=== PATIENT | female | born 1935 | race Caucasian/White ===

== ENCOUNTER 2022-03-17 22:04 | Outpatient (CLI) | payer OTHER, SELFPAY ==
--- OUTSIDE RECORDS SUMMARY | 2022-04-03 07:11 | XMS_ITS | Clinical Summary ---
:1935 Author Organization [employer] [place] [address] Care Team Providers Name Role Phone Radha Castro MD Unavailable [phone] Carolina Clayton RN Unavailable Kadie Carey RN Unavailable Kiera Sheikh DO Primary Care Provider Nancy Nagy RN Unavailable Allergies Active Allergy Reactions Severity Noted Date Comments Codeine Nausea Only, Diaphoresis, 09/01/2007 Li ghtheadedness Dizziness Hydrocodone-Acetaminophe 02/12/2008 n Medications Medication Sig Dispensed Refills Start End Status Date Date cholecalciferol (VITAMIN Take 1 0 Active D-3) 2,000 unit capsule capsule by 5 mouth once daily. calcium carbonate Take 1 0 Ac tive (CALCIUM 600) 600 mg tablet by 5 (1,500 mg) tablet mouth 2 times daily with meals. multivitamin-minerals Daily 0 Active therapeutic (THERAGRAN-M) tablet amLODIPine (NORVASC) 5 Take 1 90 Tablet 3 Active mg tabletIndications: Tablet (5 2 Essential hypertension mg) by mouth once daily. lisinopril-hydrochloroth Take 1 90 Tablet 3 Active iazide (10-12.5 mg) Tablet by 2 tablet (PRINZIDE; mouth once ZESTORETIC)Indications: daily. Essential hypertension lovastatin (MEVACOR) 20 Take 1 90 tablet. 3 Active mg tabletIndications: Tablet (20 2 Pure mg) by hypercholesterolemia mouth once daily with evening meal. Wait until they call for this. potassium chloride Take 1 180 Tablet 3 Active (KLOR-CON M20) 20 mEq Tablet (20 2 Extended-Release mEq) by tabletIndications: mouth two Essential hypertension times daily with meals. donepeziL (ARICEPT) 10 Take 1 90 Tablet 3 Active mg tabletIndications: Tablet (10 2 Moderate dementia mg) by without behavioral mouth at disturbance bedtime. cyanocobalamin (Vitamin Take 1 90 Tablet 0 Active B-12) 1,000 mcg tablet tablet 2 every other day COVID-19 antigen test As 4 Kit 5 Active (COVID-19 At-Home Test) directed. 2 kitIndications: COVID-19 virus infection cyanocobalamin (Vitamin Take 1 90 Tablet 0 Discontinued B-12) 1,000 mcg tablet Tablet 2 022 (*Medication (1,000 mcg) adjustme nt) by mouth once daily. Hospital, Clinic, or Ordered Dose Route Frequency [...] R32 She receives these pads monthly from [facility]. Milton Vazquez MD signed electronically .................... 02/16/2020 [...] Encounters Date Type Specialty Care Team Description 03/29/2022 Office Visit Kiera Sheikh, [facility] F/U DO (/COV ID-19 positive when i n ER/[facility]//[place] [facility] Assisted Living - [facility] ) 03/29/2022 Travel 03/17/2022 Orders Only Scanner <No scans attac hed> 02/20/2022 Nurse/Clinic Staff Immunizat ion/Injection Only (Prolia Injecti onKiera DO ) 02/20/2022 Travel 02/20/2022 Telephone Kiera Sheikh, 02/04/2022 Telephone Kiera Sheikh, Prolia Co verage DO 01/30/2022 Office Visit Kiera Sheikh, Medicare ANNUAL DO (subsequent) Vi sit (Dementia has g christal worse/); Should er Pain/problem (l eft shoulder [...] 06/21/2020, 05/24/2020 100mcg/0.5mL) PF, MDV COVID-19 vaccine (JustGo 01/30/2022 30mcg/0.3mL) 12YO+ BIVALENT BOOSTER PF, MDV [...] coma and liver failure Heart Disease Father NH; of NH a t 73 Cancer Maternal Grandmother not [...] in contact with No / Unsu re 03/29/2022 7:24 AM GLASS ARTIST someone who was confirmed or suspected to have Coronavirus/COVID-19? Obstetrics History Last Filed Vital Signs Vital Sign Reading Time Taken Comments Blood Pressure 113/59 03/29/2022 1:55 PM GLASS ARTIST Pulse 68 03/29/2022 1:55 PM GLASS ARTIST Temperature 36.4 ??C (97.6 ??F) 05/28/2019 9:48 AM GLASS ARTIST Respiratory Rate 14 03/29/2022 1:55 PM GLASS ARTIST Oxygen Saturation 97% 03/29/2022 1:55 PM GLASS ARTIST Inhaled Oxygen Concentration - - Weight 52.6 kg (115 lb 14.4 oz) 03/29/2022 1:55 PM GLASS ARTIST Height 151.1 cm (4' 11.5) 01/30/2022 11:07 AM CDT Body Mass Index 23.02 01/30/2022 11:07 AM CDT Plan of Treatment Upcoming Encounters Date Type Specialty Care Team Description 07/31/2022 Office Visit Kiera Sheikh, DO [address] [place], [place] [address] (Wo rk) Health Maintenance Due Date Last Done Comments Zoster (shingles) series for age 0407/28/2007 06/02/2007 50+ (2 of 3) BMI (ht and wt on same day) for 01/30/2023 01/30/2022, 06/3 , age 18+ 05/28/2019, Additional history exists Depression [...] Name Priority Date/Time Associated Diagnosis Comme nts SCAN-RADIOLOGY REPORT 03/17/2022 12:00 Re sults for this AM GLASS ARTIST procedure are i n the results section. CBC WITH AUTO Routine 01/30/2022 12:36 [...] ults section. from Last 3 Months Results SCAN-RADIOLOGY REPORT (03/17/2022 12:00 AM GLASS ARTIST) Narrative This result has an attachment that is no t available. Scanner OTHER (ABNORMAL) CBC WITH AUTO DIFFERENTIAL (01/30/2022 12:36 PM CDT) [facility] gist Method Time Signature WHITE BLOOD 10.3 4.5 - 11.0 01/30/2022 [place] COUNT thou/cu mm 12:48 PM [facility] RED BLOOD COUNT 4.41 4.00 - 01/30/2022 [place] 5.20 12:48 PM [facility] mil/cu mm LABORATORY HEMOGLOBIN 14.1 12.0 - 01/30/2022 [place] 16.0 g/dL 12:48 PM [facility] HEMATOCRIT 42.4 33.0 - 01/30/2022 [place] 51.0 % 12:48 PM [facility] MCV 96 80 - 100 01/30/2022 [place] fL 12:48 PM [facility] MCH 32.0 26.0 - 01/30/2022 [place] 34.0 pg 12:48 PM [facility] MCHC 33.3 32.0 - 01/30/2022 [place] 36.0 g/dL 12:48 PM [facility] RDW 13.3 11.5 - 01/30/2022 [place] 15.5 % 12:48 PM [facility] PLATELET COUNT 230 140 - 440 01/30/2022 [place] thou/cu mm 12:48 PM [facility] MPV 10.0 6.5 - 11.0 01/30/2022 [place] fL 12:48 PM [facility] % NEUT 75.1 % 01/30/2022 [place] 12:48 PM [facility] % LYMPH 15.9 % 01/30/2022 [place] 12:48 PM [facility] % MONO 7.6 % 01/30/2022 [place] 12:48 PM [facility] % EOS 1.0 % 01/30/2022 [place] 12:48 PM [facility] % BASO 0.4 % 01/30/2022 [place] 12:48 PM [facility] ABSOLUTE 7.7 (H) 1.7 - 7.0 01/30/2022 [place] NEUTROPHILS thou/cu mm 12:48 PM [facility] ABSOLUTE 1.6 0.9 - 2.9 01/30/2022 [place] LYMPHOCYTES thou/cu mm 12:48 PM [facility] ABSOLUTE 0.8 <0.9 01/30/2022 [place] MONOCYTES thou/cu mm 12:48 PM [facility] ABSOLUTE 0.1 <0.5 01/30/2022 [place] EOSINOPHILS thou/cu mm 12:48 PM [facility] ABSOLUTE 0.0 <0.3 01/30/2022 [place] BASOPHILS thou/cu mm 12:48 PM [facility] Specimen Anatomical Collection Method / Collection Time Recei taina Time (Source) Location / Volume Laterality Blood BLOOD SPECIMEN / Venipuncture / 01/30/2022 12:36 01/30 Unknown Unknown PM CDT 12:39 PM CDT Kiera Sheikh DO HEMATOLOGY Performing Organization Address City/State/ZIP Code Phon e Number [facility] [address] [place] [address] (ABNORMAL) LIPID PANEL W REFLEX MEASURED LDL (01/30/2022 12:36 PM CDT) Patholo gist Method Time Signature CHOLESTEROL,TOTAL 154 100 - 199 01/30/2022 [place] mg/dL 1:02 PM [facility] TRIGLYCERIDES 154 (H) <150 01/30/2022 [place] mg/dL 1:02 PM [facility] HDL CHOLESTEROL 67 >40 mg/dL 01/30/2022 [place] 1:02 PM [facility] NON-HDL 87 <145 01/30/2022 [place] CHOLESTEROL mg/dl 1:02 PM [facility] CHOL/HDL RATIO 2.30 <4.50 01/30/2022 [place] 1:02 PM [facility] LDL CHOLESTEROL 56 <=130 01/30/2022 [place] mg/dL 1:02 PM [facility] VLDL CHOLESTEROL 31 (H) <=30 01/30/2022 [place] mg/dL 1:02 PM [facility] PROVIDER ORDERED RANDOM 01/30/2022 [place] STATUS 1:02 PM [facility] Specimen Anatomical Collection Method / Collection Time Recei taina Time (Source) Location / Volume Laterality Blood BLOOD SPECIMEN / Venipuncture / 01/30/2022 12:36 01/30 Unknown Unknown PM CDT 12:39 PM CDT Kiera Sheikh DO CHEMISTRY Performing Organization Address City/State/ZIP Code Phon e Number [facility] [address] [place] [address] (ABNORMAL) VITAMIN B12 (01/30/2022 12:36 PM CDT) P athologist Signature VITAMIN B12 1,355 (H) 180 - 914 01/31/2022 [employer] pg/mL 1:29 PM CDT LAB[facility]ATORY-[facility] Specimen Anatomical Collection Method / Collection Time Recei taina Time (Source) Location / Volume Laterality Blood BLOOD SPECIMEN / Venipuncture / 01/30/2022 12:36 01/30 Unknown Unknown PM CDT 12:39 PM CDT Keira Sheikh DO CHEMISTRY Performing Organization Address City/State/ZIP Code Phon e Number [facility] [address] [place], [place] [address] [address] LABORATORY-[facility] [address] LABORATORY (ABNORMAL) COMP METABOLIC PANEL (01/30/2022 12:36 PM T) [facility] Method Time Signature SODIUM 139 135 - 145 01/30/2022 [place] mmol/L 1:03 PM [facility] POTASSIUM 4.0 3.5 - 5.0 01/30/2022 [place] mmol/L 1:03 PM [facility] CHLORIDE 104 98 - 110 01/30/2022 [place] mmol/L 1:03 PM [facility] CO2,TOTAL 26 21 - 31 01/30/2022 [place] mmol/L 1:03 PM [facility] ANION GAP 9 5 - 18 01/30/2022 [place] 1:03 PM [facility] GLUCOSE 104 (H) 65 - 100 01/30/2022 [place] mg/dL 1:03 PM [facility] CALCIUM 10.1 8.5 - 10.5 01/30/2022 [place] mg/dL 1:03 PM [facility] BUN 16 8 - 25 01/30/2022 [place] mg/dL 1:03 PM [facility] CREATININE 0.79 0.57 - 01/30/2022 [place] 1.11 mg/dL 1:03 PM [facility] BUN/CREAT RATIO 20 10 - 20 01/30/2022 [place] 1:03 PM [facility] ALBUMIN 4.6 3.2 - 4.6 01/30/2022 [place] g/dL 1:03 PM [facility] PROTEIN,TOTAL 7.9 6.0 - 8.0 01/30/2022 [place] g/dL 1:03 PM [facility] GLOBULIN 3.3 2.0 - 3.7 01/30/2022 [place] g/dL 1:03 PM [facility] A/G RATIO 1.4 1.0 - 2.0 01/30/2022 [place] 1:03 PM [facility] BILIRUBIN,TOTAL 0.6 0.2 - 1.2 01/30/2022 [place] mg/dL 1:03 PM [facility] ALK PHOSPHATASE 69 50 - 136 01/30/2022 [place] IU/L 1:03 PM [facility] ALT (SGPT) 24 8 - 45 01/30/2022 [place] IU/L 1:03 PM [facility] AST (SGOT) 21 2 - 40 01/30/2022 [place] IU/L 1:03 PM [facility] eGFR 73 (L) >90 01/30/2022 [place] mL/min/1.7 1:03 PM [facility] 3m2 LABORATORY Comment: As of 2021, eGFR [...] Organization Address City/State/ZIP Code Phon e Number [facility] [address] [place] [address] from Last 3 Months Insurance Payer Benefit Plan / Subscriber ID Effective Dates Phone Addre ss Type Group MEDICARE PART B MEDICARE PART B [id number] 2001-Presen ATTN: CLAIMS - HB USE ONLY HB ONLY t [address] [place] [address] [facility] [id number] 2021-Present [address] [place] [address] [address] (Home) [address] [facility] [place] [id number] Advance Directives Documents on File Type Date Recorded Patient Gear 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 Registered Nurse 09/27/19 RN [facility], [address] [place], [place] [id number] Kadie Carey, bit tapper - [facility] Registered Nurse 09/27/[address] [place] [address] [address] [place], [place] [id number] Nancy Nagy, Actuarial Consultant - [facility] Registered Nurse 02/15/[address] [place] [address] [address] [place], [place] [phone]
== END 2022-03-17 22:05 | disposition home or self-care (01) ==
PROVIDERS: PCP Family Medicine; Visit Provider Internal Medicine
DX: R53.1 Weakness (principal)
CPT/HCPCS: A0425; A0427

== ENCOUNTER 2022-03-17 22:26 | Emergency (ER) | payer OTHER, SELFPAY ==
[2022-03-17] VITALS (8 sets, daily range): BP systolic 138–152; BP diastolic 57–88; PULSE 81–104; RESP 18; TEMP 36.7; O2SAT 91–99; BMI 24.2
--- NOTE | 2022-03-17 22:35 | ED_ITS ---
HPI - General Adult General Chief complaint: Weakness Stated complaint: Fall, weakness Time Seen by Provider: 03/17/22 22:30 History of Present Illness HPI narrative: Pt is a 87 year old woman who lives independently at the [facility] in [place]. While getting ready for bed tonight, she briefly lost her balance and tipped backwords landing on her buttocks. Pt did not hit her head. She had no LOC. She only has pain in her buttocks in the midline. She is not coplaining of weakness in any of her extremities which also have no pain. Pt states that she has been in her usual state of health. Pt was very scared and called for an ambulance which brought her to the ED. Pain is minimal in the buttocks midline. No radicular symptoms. Pt states she has had no similar symptoms in the past. She states that she currently receives no additional services in her apartment. Pain is mild. Related Data Home Medications Medication Instructions Recorded Confirmed amlodipine 5 mg tablet 5 mg PO DAILY 03/17/22 03/17/22 donepezil 10 mg tablet 10 mg PO HS 03/17/22 03/17/22 lisinopril 10 1 tab PO DAILY 03/17/22 03/17/22 mg-hydrochlorothiazide 12.5 mg tablet lovastatin 20 mg tablet 20 mg PO DAILY 03/17/22 03/17/22 potassium chloride 20 mEq 20 meq PO BID 03/17/22 03/17/22 tablet,extended release(part/cryst) Allergies Allergy/AdvReac Type Severity Reaction Status Date / Time codeine Allergy Mild Hives Verified 03/17/22 22:34 hydrocodone Allergy Mild Hives Verified 03/17/22 22:34 Review of Systems Status of ROS: Reports: 10 or more systems reviewed and unremarkable except as noted in History and below [facility] Medical History (Updated 03/17/22 @ 23:32 by Joaquim Garcia MD) Cerebral aneurysm Cognitive dysfunction Fusion of toes of left foot Hyperlipidemia Hypertension Hypokalemia Reflux esophagitis Spinal stenosis of lumbar region Spondylolisthesis of lumbar region Surgical History (Updated 03/17/22 @ 23:25 by Yang Fuentes RN) History of back surgery History of bilateral cataract extraction History of bunionectomy History of hysterectomy History of total abdominal hysterectomy and bilateral salpingo-oophorectomy Social History Smoking Status: Never smoker Second hand tobacco smoke exposure: No How often do you have a drink containing alcohol: never How often do you have six or more drinks on one occasion: Never AUDIT-C Alcohol total score: 0 Non-prescribed substance use: denies use Exam Narrative: Exam Narrative: EXAM GENERAL: Patient appears comfortable and well. EYES: No scleral icterus. ENT: Tympanic membranes and oropharynx normal. THYROID: no thyroid nodules or thyromegaly. LYMPH: No supraclavicular or cervical lymphadenopathy. SKIN: Visible skin seen during exam normal or with benign process only. EXT: No dependent lower extremity pedal edema. HEART: Regular rate and rhythm with no murmurs, rubs, or gallops. LUNGS: Clear to auscultation bilaterally with no crackles or wheezes. ABD: Soft, non tender, non distended. PSYCH: Good eye contact, speech is not pressured. Neurologic CN 11-XII intact. Pt ambulates without pain. Const: Vital Signs, click to edit/add: Vital Signs - 24 hr 03/17/22 22:30 03/17/22 22:47 03/17/22 23:00 Temperature 98.0 F Pulse Rate 85 93 Pulse Rate [Right Pulse Oximeter] 88 Respiratory Rate 18 Blood Pressure Blood Pressure [Ri ght Upper Arm] 152/88 H Pulse Oximetry 99 94 97 Oxygen Delivery Me thod Room Air 03/17/22 23:02 03/17/22 23:15 Temperature Pulse Rate 89 81 Pulse Rate [Right Pulse Oximeter] Respiratory Rate Blood Pressure 138/57 L Blood Pressure [Ri ght Upper Arm] Pulse Oximetry 95 93 Oxygen Delivery Me thod Course Course Hospital Course: Pt seen and examined. X ray of pelvis negative upon my review. Pt ambulates without pain. Vital Signs Vital signs: Initial Vital Signs Temperature 98.0 F 03/17/22 22:30 Temperature Source Temporal Artery Scan 03/17/22 22:30 Pulse Rate 88 03/17/22 22:30 Respiratory Rate 18 03/17/22 22:30 Blood Pressure 152/88 H 03/17/22 22:30 Blood Pressure Mean 109 03/17/22 22:30 Blood Pressure Position Sitting 03/17/22 22:30 Pulse Oximetry 99 03/17/22 22:30 Oxygen Delivery Method 03/17/22 22:30 Vital Signs Temperature 98.0 F 03/17/22 22:30 Pulse Rate 88 03/17/22 22:30 Respiratory Rate 18 03/17/22 22:30 Blood Pressure 152/88 H 03/17/22 22:30 Pulse Oximetry 99 03/17/22 22:30 Oxygen Delivery Method 03/17/22 22:30 Temperature 98.0 F 03/17/22 22:30 Pulse Rate 81 03/17/22 23:15 Respiratory Rate 18 03/17/22 22:30 Blood Pressure 138/57 L 03/17/22 23:02 Pulse Oximetry 93 03/17/22 23:15 Oxygen Delivery Method 03/17/22 22:30 Medical Decision Making MDM Narrative Medical decision making narrative: Pt is an 87 year old woman who stumbled backwards earlier tonight. She has only pain in her buttocks midline and no head or neck pain. Pt ambulates without difficulty or pain and her pelvic x rays upon my review show no abnormalities. Pt will be discharged back to the [facility] to continue her current care with PCP follow up. Differential Diagnosis Differential Diagnosis: Fall, Pelvic Fracture, Hip Fracture, Contusion, Sprain, Dislocation Lab Data Labs: Lab Results 03/17/22 Range/Units 23:05 SARS-CoV-2 (PCR) POSITIVE SARS-CoV-2 A (Negative) Influenza Type A (PCR) Negative PCR FLU A (Negative) Influenza Type B (PCR) Negative PCR FLU B (Negative) RSV (PCR) Negative PCR RSV (Negative) Discharge Plan Discharge Clinical Impression: Fall Condition: Stable Instructions: Fall Prevention for Older Adults (ED) Activity Level: Activity as Tolerated Discharge Diet: Regular Prescriptions: No Action amlodipine 5 mg tablet 5 mg PO DAILY Label Comments: TAKE 1 TABLET (5 MG) BY MOUTH ONCE DAILY. donepezil 10 mg tablet 10 mg PO HS Label Comments: TAKE 1 TABLET (10 MG) BY MOUTH AT BEDTIME. lisinopril-hydrochlorothiazide 10-12.5 mg tablet 1 tab PO DAILY Label Comments: TAKE 1 TABLET BY MOUTH ONCE DAILY. lovastatin 20 mg tablet 20 mg PO DAILY Label Comments: TAKE 1 TABLET (20 MG) BY MOUTH ONCE DAILY WITH EVENING MEAL. potassium chloride 20 mEq tablet,ER particles/crystals 20 meq PO BID Label Comments: TAKE 1 TABLET (20 MEQ) BY MOUTH TWO TIMES DAILY WITH MEALS. Follow Up/Referrals: Milton Vazquez MD [Primary Care Provider] - Stand Alone Forms: [employer] Info Instructions
--- NOTE | 2022-03-17 22:42 | CRLHL7_ITS ---
For Patients: As a result of the Cures Act, medical imaging exams and procedure reports are released immediately into your electronic medical record. You may view this report before your referring provider. If you have questions, please contact your health care provider. Indication: Trauma. Technique: AP view of the pelvis views. Comparison: None. Findings: Bones: Alignment is normal. No fractures or bone lesions. Joint spaces: Unremarkable. Soft tissues: Unremarkable. Impression: No sign of acute injury. Dictated by Elizabeth Yung MD @ 03/17/2022 11:38:09 PM (Electronically Signed)
--- NOTE | 2022-03-17 22:54 | ED.NURSE ---
MD requesting evaluation of pt while walking. Pt up and ambulatory without difficulty. Gallery [employer] Museum Technician at side of pt to assist, but pt ambulating independently. Pt back in bed and MD updated.
[2022-03-17 23:34] LABS: PCR FLU A Negative PCR FLU A (Negative); PCR FLU B Negative PCR FLU B (Negative); PCR RSV Negative PCR RSV (Negative); SARS PCR* POSITIVE SARS-CoV-2 (Negative)
--- OUTSIDE RECORDS SUMMARY | 2022-03-17 23:41 | XMS_ITS | Clinical Summary ---
:1935 Author Organization [employer] [facility] [place] [address] Care Team Providers Name Role Phone Radha Castro MD Unavailable [phone] Carolina Clayton RN Unavailable Kadie Carey RN Unavailable Kiera Sheikh DO Primary Care Provider Nancy Nagy RN Unavailable Allergies Active Allergy Reactions Severity Noted Date Comments Codeine Nausea Only, Diaphoresis, 09/01/2007 Li ghtheadedness Dizziness Hydrocodone-Acetaminophe 02/12/2008 n Medications Medication Sig Dispensed Refills Start Date End Date Status cholecalciferol (VITAMIN Take 1 0 12/19/2014 Active D-3) 2,000 unit capsule capsule by mouth once daily. calcium carbonate (CALCIUM Take 1 tablet 0 5 Active 600) 600 mg (1,500 mg) by mouth 2 tablet times daily with meals. multivitamin-minerals Daily 0 Active therapeutic (THERAGRAN-M) tablet amLODIPine (NORVASC) 5 mg Take 1 Tablet 90 Tablet 3 01/30/2022 Active tabletIndications: (5 mg) by Essential hypertension mouth once daily. lisinopril-hydrochlorothia Take 1 Tablet 90 Tablet 3 2 Active zide (10-12.5 mg) tablet by mouth once (PRINZIDE; daily. ZESTORETIC)Indications: Essential hypertension lovastatin (MEVACOR) 20 mg Take 1 Tablet 90 tablet. 3 01/31/20 22 Active tabletIndications: Pure (20 mg) by hypercholesterolemia mouth once daily with evening meal. Wait until they call for this. potassium chloride Take 1 Tablet 180 Tablet 3 01/30/2022 Active (KLOR-CON M20) 20 mEq (20 mEq) by Extended-Release mouth two tabletIndications: times daily Essential hypertension with meals. donepeziL (ARICEPT) 10 mg Take 1 Tablet 90 Tablet 3 01/30/2022 Active tabletIndications: (10 mg) by Moderate dementia without mouth at behavioral disturbance bedtime. Hospital, Clinic, or Ordered Dose Route Frequency Start Date End D ate Status Other Facility Administered Medication denosumab (PROLIA) 60 mg SubQ Q 6 MONTHS (02/20/202207/08 Active injection 60 WEEKS) mgIndications: Post-menopausal osteoporosis denosumab (PROLIA) 60 mg SubQ Q 6 MONTHS (02/20/202207/08 Active injection 60 WEEKS) mgIndications: Post-menopausal osteoporosis Active Problems Problem Noted Date Cerebral aneurysm 01/30/2022 Moderate dementia without behavioral disturbance 08/05 Urinary incontinence 02/16/2020 Overview: Code R32 She receives these pads monthly from [facility]. Milton Vazquez MD signed electronically .................... 02/16/2020 Post-menopausal osteoporosis 12/24/2018 Overview: She completed 5 years of Fosamax in 2016 . As of 12/24/2018 her most recent bone den sity showed her to be at risk for fracture and drug therapy was recommended. She has chosen to go with [facility] for 3 years followed by a 3 year drug holiday. 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 10/08/2017 Lump of Left Forehead 03/06/2015 Overview: 09/2013 10 mm 04/2014 7 mm 02/2015 7 mm Reflux esophagitis 06/23/2013 Overview: EGD 06/2016 normal, biopsy negative for c eliac disease, patient can try gluten- free diet to see if this helps her abdominal pain Abdominal pain, epigastric 06/09/2013 Overview: EGD 05/2013 reflux Unspecified essential hypertension 01/14/2007 Pure hypercholesterolemia 01/14/2007 Encounters Date Type Specialty Care Team Description 02/20/2022 Nurse/Clinic Staff Immunizat ion/Injection Only (Prolia Injecti on, Kiera Sheikh, DO ) 02/20/2022 Travel 02/20/2022 Telephone Kiera Sheikh, DO 02/04/2022 Telephone Kiera Sheikh, Prolia Co verage DO 01/30/2022 Office Visit Kiera Sheikh, Medicare ANNUAL DO (subsequent) Vi sit (Dementia has sergio siegel worse/); Should er Pain/problem (l eft shoulder hurts to move it or touch it) ; Immunization/In jection (COVID-19 vacci ne /Flue Vaccine) 01/30/2022 Travel from Last 3 Months Immunizations Name Administration Dates Next Due AMB INFLUENZA IIV3 (AGE 65+ YRS) PF 01/29/2017 (Flu Clinic Only) AMB Influenza, IIV3 (Age >=3 03/12/2013 years)(Flu Clinic Only) COVID-19 vaccine (Moderna 06/21/2020, 05/24/2020 100mcg/0.5mL) PF, MDV COVID-19 vaccine ([employer] 01/30/2022 30mcg/0.3mL) 12YO+ BIVALENT BOOSTER PF, MDV Influenza, High-dose Inactivated 02/19/2019, 01/24/2016, , 02/04/2014 Influenza, IIV3 (Age >=3 years) 02/15/2012, 01/09/2009, 01/27 Influenza, IIV4 01/29/2017 Influenza, Inactivated AIIV4 (Age 65+ 01/30/2022, 02/01/2021 Years) Preserv Free Influenza, Inactivated IIV3 (Age 65+ 02/11/2018 Years) Preserv Free Pneumococcal Poly,23-Valent 02/17/2012 (Pneumovax) Pneumococcal conj 13-Valent (Prevnar 05/17/2015 13) Td, Preservative Free (age >= 7 11/29/2010 Years) Tdap 10/28/2013 Zoster (Zostavax-ZVL, live) 06/02/2007 Family History Medical History Relation Name Comments Heart Disease Brother bypass surgery Heart attack Daughter 1 Rhythm problems post heart attack Psychiatric illness Daughter 1 bi polar Seizures Daughter 2 at 48 of sz and coma and liver failure Heart Disease Father RI; of RI a t 73 Cancer Maternal Grandmother not a smoke r Arthritis Mother ? rheumatoid Dementia Mother of old age at 86 Heart Disease Mother CHF Cancer-breast Sister Heart Disease Sister bypass surgery Hyperlipidemia Sister Hypertension Sister Cancer-colon No Family History Relation Name Status Comments Brother Daughter 1 Daughter 2 Father Maternal Grandmother Mother Sister Social History Tobacco Use Types Packs/Day Years Used Date Never Smoker Smokeless Tobacco: Never Used Tobacco Cessation: Counseling Given: Yes Alcohol Use Standard Drinks/Week Comments No 0 (1 standard drink = 0.6 oz pure alcoho l) Sex Assigned at Date Recorded Not on file COVID-19 Exposure Response Date Recorded In the last 10 days, have you been in contact with No / Unsu re 02/20/2022 1:24 PM CDT someone who was confirmed or suspected to have Coronavirus/COVID-19? Obstetrics History Last Filed Vital Signs Vital Sign Reading Time Taken Comments Blood Pressure 124/58 01/30/2022 11:07 AM CDT Pulse 60 01/30/2022 11:07 AM CDT Temperature 36.4 ??C (97.6 ??F) 05/28/2019 9:48 AM MANAGER RESPIRATORY CARE Respiratory Rate 16 01/30/2022 11:07 AM CDT Oxygen Saturation 96% 08/01/2021 10:52 AM CDT Inhaled Oxygen Concentration - - Weight 54.4 kg (120 lb) 01/30/2022 11:07 AM CDT Height 151.1 cm (4' 11.5) 01/30/2022 11:07 AM CDT Body Mass Index 23.83 01/30/2022 11:07 AM CDT Plan of Treatment Health Maintenance Due Date Last Done Comments Zoster (shingles) series for age 0407/28/2007 06/02/2007 50+ (2 of 3) BMI (ht and wt on same day) for 01/30/2023 01/30/2022, 06/, age 18+ 05/28/2019, Additional history exists Depression screening for age 12+ 01/30/2023 01/30/2022, 08/2020, 01/26/2021, Additional history exists Medicare Wellness for age 65+ 01/30/2023 01/30/2022, 2018, 11/14/2017, Additional history exists Tetanus booster 10/29/2023 10/28/2013, 11/29/2010, 11/29/2010 Tdap Completed 10/28/2013 Pneumococcal series for age 65+ Completed 05/17/2015, 01/27 DEXA/DXA scan for age 65+ Completed 12/07/2018, 05/27/2014 COVID-19 vaccine series Completed 01/30/2022, 03/29/2021, 06/21/2020, Additional history exists Influenza for age 65+ Completed 01/30/2022, 02/01/2021, 02/19/2019, Additional history exists Procedures Procedure Name Priority Date/Time Associated Diagnosis Comme nts CBC WITH AUTO Routine 01/30/2022 12:36 Essential Results fo r this DIFFERENTIAL PM CDT hypertension procedure are in HYPERCHOLESTEROLEMIA the res ults section. VITAMIN B12 Routine 01/30/2022 12:36 Moderate dementia Result s for this PM CDT without behavioral procedure are in disturbance the results section. LIPID PANEL W REFLEX Routine 01/30/2022 12:36 Essential Res ults for this MEASURED LDL PM CDT hypertension procedure are in HYPERCHOLESTEROLEMIA the res ults section. COMP METABOLIC PANEL Routine 01/30/2022 12:36 Essential Res ults for this PM CDT hypertension procedure are in HYPERCHOLESTEROLEMIA the res ults section. CBC WITH AUTO Routine 01/30/2022 12:36 Essential Results fo r this DIFFERENTIAL PM CDT hypertension procedure are in HYPERCHOLESTEROLEMIA the res ults section. from Last 3 Months Results (ABNORMAL) CBC WITH AUTO DIFFERENTIAL (01/30/2022 12:36 PM CDT) [facility] Method Time Signature WHITE BLOOD 10.3 4.5 - 11.0 01/30/2022 [place] COUNT thou/cu mm 12:48 PM [facility] RED BLOOD COUNT 4.41 4.00 - 01/30/2022 [place] 5.20 12:48 PM [facility] mil/cu mm LABORATORY HEMOGLOBIN 14.1 12.0 - 01/30/2022 [place] 16.0 g/dL 12:48 PM [facility] HEMATOCRIT 42.4 33.0 - 01/30/2022 [place] 51.0 % 12:48 PM [facility] MCV 96 80 - 100 01/30/2022 [place] fL 12:48 PM [facility] MCH 32.0 26.0 - 01/30/2022 [place] 34.0 pg 12:48 PM [facility] MCHC 33.3 32.0 - 01/30/2022 [place] 36.0 g/dL 12:48 PM [facility] RDW 13.3 11.5 - 01/30/2022 [place] 15.5 % 12:48 PM [facility] PLATELET COUNT 230 140 - 440 01/30/2022 [place] thou/cu mm 12:48 PM [facility] MPV 10.0 6.5 - 11.0 01/30/2022 [place] fL 12:48 PM [facility] % NEUT 75.1 % 01/30/2022 [place] 12:48 PM [facility] % LYMPH 15.9 % 01/30/2022 [place] 12:48 PM [facility] % MONO 7.6 % 01/30/2022 [place] 12:48 PM [facility] % EOS 1.0 % 01/30/2022 [place] 12:48 PM [facility] % BASO 0.4 % 01/30/2022 [place] 12:48 PM [facility] ABSOLUTE 7.7 (H) 1.7 - 7.0 01/30/2022 [place] NEUTROPHILS thou/cu mm 12:48 PM [facility] ABSOLUTE 1.6 0.9 - 2.9 01/30/2022 [place] LYMPHOCYTES thou/cu mm 12:48 PM [facility] ABSOLUTE 0.8 <0.9 01/30/2022 [place] MONOCYTES thou/cu mm 12:48 PM [facility] ABSOLUTE 0.1 <0.5 01/30/2022 [place] EOSINOPHILS thou/cu mm 12:48 PM [facility] ABSOLUTE 0.0 <0.3 01/30/2022 [place] BASOPHILS thou/cu mm 12:48 PM [facility] Specimen Anatomical Collection Method / Collection Time Recei taina Time (Source) Location / Volume Laterality Blood BLOOD SPECIMEN / Venipuncture / 01/30/2022 12:36 01/30 Unknown Unknown PM CDT 12:39 PM CDT Kiera Sheikh DO HEMATOLOGY Performing Organization Address City/State/ZIP Code Phon e Number [facility] [address] [place] [address] (ABNORMAL) LIPID PANEL W REFLEX MEASURED LDL (01/30/2022 12:36 PM CDT) [facility] Method Time Signature CHOLESTEROL,TOTAL 154 100 - 199 01/30/2022 [place] mg/dL 1:02 PM [facility] TRIGLYCERIDES 154 (H) <150 01/30/2022 [place] mg/dL 1:02 PM [facility] HDL CHOLESTEROL 67 >40 mg/dL 01/30/2022 [place] 1:02 PM [facility] NON-HDL 87 <145 01/30/2022 [place] CHOLESTEROL mg/dl 1:02 PM [facility] CHOL/HDL RATIO 2.30 <4.50 01/30/2022 [place] 1:02 PM [facility] LDL CHOLESTEROL 56 <=130 01/30/2022 [place] mg/dL 1:02 PM [facility] VLDL CHOLESTEROL 31 (H) <=30 01/30/2022 [place] mg/dL 1:02 PM [facility] PROVIDER ORDERED RANDOM 01/30/2022 [place] STATUS 1:02 PM [facility] Specimen Anatomical Collection Method / Collection Time Recei taina Time (Source) Location / Volume Laterality Blood BLOOD SPECIMEN / Venipuncture / 01/30/2022 12:36 01/30 Unknown Unknown PM CDT 12:39 PM CDT Kiera Sheikh DO CHEMISTRY Performing Organization Address City/[facility]/ZIP Code Phon e Number [facility] [address] [place] [address] (ABNORMAL) VITAMIN B12 (01/30/2022 12:36 PM CDT) P athologist Signature VITAMIN B12 1,355 (H) 180 - 914 01/31/2022 [employer] pg/mL 1:29 PM CDT [facility] Specimen Anatomical Collection Method / Collection Time Recei taina Time (Source) Location / Volume Laterality Blood BLOOD SPECIMEN / Venipuncture / 01/30/2022 12:36 01/30 Unknown Unknown PM CDT 12:39 PM CDT Kiera Jade Sheikh DO CHEMISTRY Performing Organization Address City/State/ZIP Code Phon e Number [employer] [address] [place] [address] LABORATORY-[facility] [address] LABORATORY (ABNORMAL) COMP METABOLIC PANEL (01/30/2022 12:36 PM CDT) Patholo gist Method Time Signature SODIUM 139 135 - 145 01/30/2022 [place] mmol/L 1:03 PM [facility] POTASSIUM 4.0 3.5 - 5.0 01/30/2022 [place] mmol/L 1:03 PM [facility] CHLORIDE 104 98 - 110 01/30/2022 [place] mmol/L 1:03 PM [facility] CO2,TOTAL 26 21 - 31 01/30/2022 [place] mmol/L 1:03 PM [facility] ANION GAP 9 5 - 18 01/30/2022 [place] 1:03 PM [facility] GLUCOSE 104 (H) 65 - 100 01/30/2022 [place] mg/dL 1:03 PM [facility] CALCIUM 10.1 8.5 - 10.5 01/30/2022 [place] mg/dL 1:03 PM [facility] BUN 16 8 - 25 01/30/2022 [place] mg/dL 1:03 PM [facility] CREATININE 0.79 0.57 - 01/30/2022 [place] 1.11 mg/dL 1:03 PM [facility] BUN/CREAT RATIO 20 10 - 20 01/30/2022 [place] 1:03 PM [facility] ALBUMIN 4.6 3.2 - 4.6 01/30/2022 [place] g/dL 1:03 PM [facility] PROTEIN,TOTAL 7.9 6.0 - 8.0 01/30/2022 [place] g/dL 1:03 PM [facility] GLOBULIN 3.3 2.0 - 3.7 01/30/2022 [place] g/dL 1:03 PM [facility] A/G RATIO 1.4 1.0 - 2.0 01/30/2022 [place] 1:03 PM [facility] BILIRUBIN,TOTAL 0.6 0.2 - 1.2 01/30/2022 [place] mg/dL 1:03 PM [facility] ALK PHOSPHATASE 69 50 - 136 01/30/2022 [place] IU/L 1:03 PM [facility] ALT (SGPT) 24 8 - 45 01/30/2022 [place] IU/L 1:03 PM [facility] AST (SGOT) 21 2 - 40 01/30/2022 [place] IU/L 1:03 PM [facility] eGFR 73 (L) >90 [facility]/30[facility]2022 [facility] mL/min/1.7 1:03 PM [facility] 3m2 LABORATORY Comment: As of 2021, eGFR is calcu lated by the CKD-EPI creatinine equation without race adjustment. eGFR can be inf luenced by muscle mass, exercise, and diet. The reported eGFR is an estimation only and is only applicable if the renal function is stable. Specimen Anatomical Collection Method / Collection Time Recei taina Time (Source) Location / Volume Laterality Blood BLOOD SPECIMEN / Venipuncture / 01/30/2022 12:36 01/30 Unknown Unknown PM CDT 12:39 PM CDT Kiera Sheikh DO CHEMISTRY Performing Organization Address City/State/ZIP Code Phon e Number [facility] [address] [place], [place] [phone] from Last 3 Months Insurance Payer Benefit Plan / Subscriber ID Effective Dates Phone Addre ss Type Group MEDICARE PART B MEDICARE PART B [id number] [id number] ATTN: CLAIMS - HB USE ONLY HB ONLY t [address] [place] [address] [facility] [id number] 2021-Present [address] [place] [address] [address] (Home) [address] [place] [address] Advance Directives Documents on File Type Date Recorded Patient Digital Account Director Explanati on Healthcare Directive 09/25/1983 [facility] , [facility], 08/28 Care Teams Rn Cardiac Cath Relationship Specialty Start Date End Date Kiera Sheikh, PCP - General Internal Medicine 01/26/21 [address] [place] [address] Radha Castro Dermatology 12/28/11 MD Maged [address] [place] [address] Carolina Clayton, Tax Credit Leasing Consultant - [facility] Registered Nurse 09/27/19 RN [facility] [place] [address] Kadie Carey member services coordinator - [facility] Registered Nurse 09/27/[address] [place] [address] [address] [place], [place] [id number] Nancy Nagy, Tax Credit Leasing Consultant - [facility] Registered Nurse 02/15/[address] [place] [address] [address] [place], [place] [id number]
[2022-03-18] VITALS: PULSE 102; O2SAT 94
[2022-03-18 00:01] VITALS: BP 153/64; PULSE 101; O2SAT 92
[2022-03-18 00:50] VITALS: BP 145/78; PULSE 84; RESP 18; TEMP 36.8; O2SAT 96
== END 2022-03-18 00:50 | disposition home or self-care (01) ==
LOC: ED 23:39
PROVIDERS: Emergency Provider Internal Medicine; PCP Family Medicine
DX: I10 Essential (primary) hypertension; E78.5 Hyperlipidemia, unspecified; Z79.899 Other long term (current) drug therapy; U07.1 COVID-19; Z88.5 Allergy status to narcotic agent; W01.0XXA Fall on same level from slipping, tripping and stumbling without subsequent striking against object, initial encounter; Y92.129 Unspecified place in nursing home as the place of occurrence of the external cause; S39.92XA Unspecified injury of lower back, initial encounter
CPT/HCPCS: 72170; 87502; 87634; 87635; 99283; 99284

== ENCOUNTER 2022-11-05 14:41 | Outpatient (REF) | payer OTHER, SELFPAY ==
[2022-11-05 18:13] LABS: Chloride* 111 mmol/L (96-114)
[2022-11-05 18:14] LABS: Potassium* 5.6 mmol/L (3.6-5.1); Sodium* 143 mmol/L (135-149)
[2022-11-05 18:16] LABS: Creatinine* 0.8 mg/dL (0.5-1.5); Estimated Glomerular Filt Rate 72 ml/min
[2022-11-05 18:17] LABS: Blood Urea Nitrogen* 19 mg/dL (7-30); Calcium* 10.3 mg/dL (8.4-10.6); Carbon Dioxide* 22 mmol/L (20-32); Glucose* 88 mg/dL (60-115)
== END 2022-11-05 14:42 | disposition home or self-care (01) ==
LOC: NPINS 14:41
PROVIDERS: PCP Family Medicine; Visit Provider Family Medicine
DX: I10 Essential (primary) hypertension (principal)
CPT/HCPCS: 80048

== ENCOUNTER 2022-12-03 12:19 | Outpatient (REF) | payer OTHER, SELFPAY ==
[2022-12-03 14:22] LABS: Chloride* 106 mmol/L (96-114)
[2022-12-03 14:23] LABS: Potassium* 4.7 mmol/L (3.6-5.1); Sodium* 139 mmol/L (135-149)
[2022-12-03 14:25] LABS: Carbon Dioxide* 22 mmol/L (20-32); Creatinine* 0.8 mg/dL (0.5-1.5); Estimated Glomerular Filt Rate 72 ml/min
[2022-12-03 14:26] LABS: Blood Urea Nitrogen* 15 mg/dL (7-30); Calcium* 10.1 mg/dL (8.4-10.6); Glucose* 87 mg/dL (60-115)
== END 2022-12-03 12:20 | disposition home or self-care (01) ==
LOC: NPINS 12:19
PROVIDERS: PCP Family Medicine; Visit Provider Family Medicine
DX: E87.5 Hyperkalemia (principal)
CPT/HCPCS: 80048

== ENCOUNTER 2023-01-04 16:47 | Outpatient (REF) | payer OTHER, SELFPAY ==
[2023-01-04 17:00] LABS: Appearance Urine Cloudy (Clear); Bilirubin Urine Negative (Negative); Blood Urine 1+ (Negative); Color Urine Yellow (Yellow); Glucose Urine Negative (Negative); Ketones Urine Negative (Negative); Leukocyte Esterase Urine 2+ (Negative); Nitrite Urine Negative (Negative); Protein Urine Negative (Negative); Specific Gravity Urine 1.025 (1.000-1.030); Urobilinogen Urine 0.2 (0.2-1.0); pH Urine 5.5 (5.0-8.5)
[2023-01-04 17:18] LABS: WBC Urine >100 (0-5)
== END 2023-01-04 16:48 | disposition home or self-care (01) ==
LOC: NPINS 16:47
PROVIDERS: PCP Family Medicine; Visit Provider Family Medicine
DX: R30.0 Dysuria (principal); R39.15 Urgency of urination
CPT/HCPCS: 81001; 87086; 87186

== ENCOUNTER 2023-05-13 11:03 | Outpatient (REF) | payer OTHER, SELFPAY ==
--- OUTSIDE RECORDS SUMMARY | 2023-05-13 11:09 | XMS_ITS | Clinical Summary ---
Author Name Unknown Organization [employer] Address [place], [place] [address] Care Team Providers Care Hogshead Cooper Name Role Phone Radha Castro MD Unavailable + Carolina Clayton RN Unavailable Kadie Carey RN Unavailable Kiera Sheikh DO Primary Care Provider Nancy Nagy RN Unavailable [phone] Allergies Active Allergy Reactions Criticality Noted Date Comments Codeine Nausea Only,Diaphoresis,Dizzin ess 09/01/2007 Lightheadedness Hydrocodone-Acetamino phen 02/12/2008 Medications Medication Sig Dispensed Refills Start Date End Date Status cholecalciferol (VITAMIN D-3) 2,000 unit capsule Take 1 capsule by mouth once daily. 0 12/19/2014 Active calcium carbonate (CALCIUM 600) 600 mg (1,500 mg) tablet Take 1 tablet by mouth 2 times daily with meals. 0 12/19/2014 Active multivitamin-minerals therapeutic (THERAGRAN-M) tablet Daily 0 Active amLODIPine (NORVASC) 5 mg tabletIndications:Essentia l hypertension Take 1 Tablet (5 mg) by mouth once daily. 90 Tablet 3 01/30/2022 Active lisinopril-hydrochlorothia zide (10-12.5 mg) tablet (PRINZIDE; ZESTORETIC)Indications:Ess ential hypertension Take 1 Tablet by mouth once daily. 90 Tablet 3 01/30/2022 Active lovastatin (MEVACOR) 20 mg tabletIndications:Pure hypercholesterolemia Take 1 Tablet (20 mg) by mouth once daily with evening meal. Wait until they call for this. 90 tablet. 3 01/30/2022 Active potassium chloride (KLOR-CON M20) 20 mEq Extended-Release tabletIndications:Essentia l hypertension Take 1 Tablet (20 mEq) by mouth two times daily with meals. 180 Tablet 3 01/30/2022 Active donepeziL (ARICEPT) 10 mg tabletIndications:Moderate dementia without behavioral disturbance (HC) Take 1 Tablet (10 mg) by mouth at bedtime. 90 Tablet 3 01/30/2022 Active cyanocobalamin (Vitamin B-12) 1,000 mcg tablet Take 1 tablet every other day 90 Tablet 0 03/29/2022 Active COVID-19 antigen test (COVID-19 At-Home Test) kitIndications:COVID-19 virus infection As directed. 4 Kit 5 03/29/2022 Active Hospital, Clinic, or Other Facility Administered Medication Ordered Dose Route Frequency Start Date End Date Status denosumab (PROLIA) injection 60 mgIndications:Post-m enopausal osteoporosis 60 mg SubQ Q 6 MONTHS (24 WEEKS) 02/20/2022 07/09/2023 Active denosumab (PROLIA) injection 60 mgIndications:Post-m enopausal osteoporosis 60 mg SubQ Q 6 MONTHS (24 WEEKS) 02/20/2022 07/09/2023 Active Active Problems Problem Noted Date Diagnosed Date Cerebral aneurysm 01/30/2022 Moderate dementia without behavioral disturbance 08/05/2021 Urinary incontinence 02/16/2020 Overview: Code R32 She receives these pads monthly from [facility]. Milton Vazquez MD signed electronically .................... 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 As of 12/24/2018 her most recent bone density showed her to be at risk for fracture and drug therapy was recommended. She has chosen to go with Zoledronic Acid for 3 years followed by a 3 year drug holiday. Spinal stenosis of lumbar region 10/08/2017 Spondylolisthesis of lumbar region - Grade 1 Anterolisthesis L4-5 10/08/2017 Lump of Left Forehead 03/06/2015 Overview: 09/2013 10 mm 04/2014 7 mm 02/2015 7 mm Reflux esophagitis 06/23/2013 Overview: EGD 06/2016 normal, biopsy negative for celiac disease, patient can try gluten- free diet to see if this helps her abdominal pain Abdominal pain, epigastric 06/09/2013 Overview: EGD 05/2013 reflux Unspecified essential hypertension 01/14/2007 Pure hypercholesterolemia 01/14/2007 Immunizations Name Administration Dates Next Due AMB INFLUENZA IIV3 (AGE 65+ YRS) PF (Flu Clinic Only) 01/29/2017 AMB Influenza, IIV3 (Age >=3 years)(Flu Clinic Only) 03/12/2013 COVID-19 vaccine (Moderna 100mcg/0.5mL) PF, MDV 06/21/2020,05/24/2020 COVID-19 vaccine (Pfizer-Bio NTech 30mcg/0.3mL) 12YO+ BIVALENT PF, MDV 01/30/2022 Influenza, High-dose Inactivated 019,01/24/2016,02/16/2015,2013 Influenza, IIV3 (Age >=3 years) 02/15/2012,01/09,02/15/2008 Influenza, IIV4 01/29/2017 Influenza, Inactivated AIIV4 (Age 65+ Years) Preserv Free 01/30/2022,02/01/2021 Influenza, Inactivated IIV3 (Age 65+ Years) Preserv Free 02/11/2018 Pneumococcal Poly,23-Valent (Pneumovax) 02/17/2012 Pneumococcal conj 13-Valent (Prevnar 13) 05/17/2015 Td, Preservative Free (age > = 7 Years) 11/29/2010 Tdap 10/28/2013 Zoster (Zostavax-ZVL, live) 06/02/2007 Family History Medical History Relation Name Comments Heart Disease Brother bypass surgery Heart attack Daughter 1 Rhythm problems post heart attack Psychiatric illness Daughter 1 bi polar Seizures Daughter 2 at 48 of s z and coma and liver failure Heart Disease Father [place]; of [place] at 73 Cancer Maternal Grandmother not a s moker Arthritis Mother ? rheumatoid Dementia Mother of old age at 86 Heart Disease Mother CHF Cancer-breast Sister Heart Disease Sister bypass surgery Hyperlipidemia Sister Hypertension Sister Cancer-colon No Family History Relation Name Status Comments Brother Daughter 1 Daughter 2 Father Maternal Grandmother Mother Sister Social History Tobacco Use Types Packs/Day Years Used Date Smoking Tobacco: Never Smokeless Tobacco: Never Tobacco Cessation:Counseling Given: Yes Alcohol Use Standard Drinks/Week Comments No 0 (1 standard drink = 0.6 oz pur e alcohol) PHQ-2 Answer Date Recorded PHQ-2 TOTAL SCORE 0 01/30/2022 Social Connections Answer Date Recorded Frequency of Communication with Friends and Fami ly Not on file 04/28/2023 Financial Resource Strain Answer Date R ecorded Difficulty of Paying Living Expenses 3 03/29/2022 Difficulty of Paying Living Expenses Not on file 03/29/2022 Food Insecurity Answer Date Recorded Worried About Running Out of Food in the Last Ye ar 1 03/29/2022 Transportation Needs Answer Date Record ed Lack of Transportation (Medical) 1 03/29/2022 Housing Stability Answer Date Recorded Unable to Pay for Housing in the Last Year 1 03/29/2022 Sex and Gender Information Value Date Recorded Sex Assigned at Not on file Gender Identity Not on file Sexual Orientation Not on file Obstetrics History Last Filed Vital Signs Vital Sign Reading Time Taken Comments Blood Pressure 113/59 03/29/2022 1:55 PM CUSTOMER CONTACT SALES ASSOCIATE Pulse 68 03/29/2022 1:55 PM CUSTOMER CONTACT SALES ASSOCIATE Temperature 36.4 ??C (97.6 ??F) 05/28/2019 9:48 AM CS T Respiratory Rate 14 03/29/2022 1:55 PM CUSTOMER CONTACT SALES ASSOCIATE Oxygen Saturation 97% 03/29/2022 1:55 PM CUSTOMER CONTACT SALES ASSOCIATE Inhaled Oxygen Concentration - - Weight 52.6 kg (115 lb 14.4 oz) 03/29/2022 1:55 PM CUSTOMER CONTACT SALES ASSOCIATE Height 151.1 cm (4' 11.5) 01/30/2022 1 1:07 AM CDT Body Mass Index 23.02 01/30/2022 11:07 AM CDT Plan of Treatment Health Maintenance Due Date Last Done Comments Zoster (shingles) series for age 50+ (2 of 3) 07/28/2007 06/02/2007 COVID-19 vaccine series (2022- season) 2022 01/30/2022, 03/29/2021, 06/21/2020, Additional history exists Influenza for age 65+ 12/27/2022 01/30/2022 , 02/01/2021, 02/19/2019, Additional history exists BMI (ht and wt on same day) for age 18+ 01/30/2023 01/30/2022, 10/25/2021, 05/28/2019, Additional history exists Depression screening for age 12+ 01/30/2023 01/30/2022, 01/30/2021, 01/26/2021, Additional history exists Medicare Wellness for age 65+ 01/30/2023, 11/30/2018, 11/14/2017, Additional history exists Tetanus booster 10/29/2023 10/28/2013, 07/2010, 11/29/2010 Tdap Completed 10/28/2013 Pneumococcal series for age 65+ Completed 6, 02/17/2012 DEXA/DXA scan for age 65+ Completed 12/07/2018, Advance Directives Documents on File Type Date Recorded 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, [address] [place], [place] [address] Biomedical Engineer - [facility] Registered Nurse 09/27/19 Kadie Carey RN [address] [place] [phone] Biomedical Engineer - [facility] Registered Nurse 09/27/19 Nancy Nagy RN [address] [place] [phone] Biomedical Engineer - [facility] Registered Nurse 02/15/21
[2023-05-13 11:57] LABS: Chloride* 107 mmol/L (96-114); Potassium* 4.6 mmol/L (3.6-5.1); Sodium* 140 mmol/L (135-149)
[2023-05-13 12:00] LABS: Anion Gap 11 mEq/L (7-15); Blood Urea Nitrogen* 14 mg/dL (7-30); Carbon Dioxide* 22 mmol/L (20-32); Creatinine* 0.6 mg/dL (0.5-1.5); Estimated Glomerular Filt Rate 87 ml/min
[2023-05-13 12:01] LABS: Calcium* 9.4 mg/dL (8.4-10.6); Glucose* 141 mg/dL (60-115)
== END 2023-05-13 11:04 | disposition home or self-care (01) ==
LOC: NPINS 11:03
PROVIDERS: PCP Family Medicine; Visit Provider Nurse Practitioner Gerontology
DX: E87.5 Hyperkalemia (principal)
CPT/HCPCS: 80048

== ENCOUNTER 2023-07-01 11:46 | Outpatient (REF) | payer OTHER, SELFPAY ==
[2023-07-01 13:57] LABS: Chloride* 106 mmol/L (96-114); Sodium* 142 mmol/L (135-149)
[2023-07-01 13:58] LABS: Potassium* 4.4 mmol/L (3.6-5.1)
[2023-07-01 14:00] LABS: Carbon Dioxide* 24 mmol/L (20-32); Creatinine* 0.7 mg/dL (0.5-1.5); Estimated Glomerular Filt Rate 84 ml/min
[2023-07-01 14:01] LABS: Blood Urea Nitrogen* 18 mg/dL (7-30); Calcium* 10.2 mg/dL (8.4-10.6); Glucose* 103 mg/dL (60-115)
[2023-07-01 14:05] LABS: Anion Gap 12 mEq/L (7-15)
== END 2023-07-01 11:47 | disposition home or self-care (01) ==
LOC: NPINS 11:46
PROVIDERS: PCP Family Medicine; Visit Provider Nurse Practitioner Gerontology
DX: E87.5 Hyperkalemia (principal)
CPT/HCPCS: 80048

== ENCOUNTER 2023-08-19 11:56 | Outpatient (REF) | payer OTHER, SELFPAY ==
--- OUTSIDE RECORDS SUMMARY | 2023-08-19 11:58 | XMS_ITS | Clinical Summary ---
Author Name Unknown Organization [employer] [facility] [employer] Address [place], [place] [address] Care Team Providers Care Semiconductor Equipment Technician Name Role Phone Radha Castro MD Unavailable + Carolina Clayton RN Unavailable [phone] Kadie Carey RN Unavailable Kiera Sheikh DO Primary Care Provider Nancy Nagy RN Unavailable [phone] Allergies Active Allergy Reactions Criticality Noted Date [...] 12/19/2014 Active multivitamin-minerals therapeutic (THERAGRAN-M) tablet Daily Active amLODIPine (NORVASC) 5 mg tabletIndications:Essentia l [...] 1 tablet every other day 90 Tablet 03/29/2022 Active COVID-19 antigen test (COVID-19 At-Home Test) kitIndications:COVID-19 virus infection As directed. 4 Kit 5 03/29/2022 Active Active Problems Problem Noted Date Diagnosed Date Cerebral aneurysm 01/30/2022 Moderate dementia without behavioral disturbance 08/05/2021 Urinary incontinence 02/16/2020 Overview: Code R32 She receives these pads monthly from [facility]. Milton Vazquez MD signed electronically .................... 02/16/2020 Post-menopausal osteoporosis 12/24/2018 Overview: She completed 5 years of Fosamax in 2016. As of 12/24/2018 her most recent bone [...] (Moderna 100mcg/0.5mL) PF, MDV 06/21/2020,05/24/2020 COVID-19 vaccine (Uptake-Bio NTech 30mcg/0.3mL) 12YO+ BIVALENT PF, MDV 01/30/2022 [...] coma and liver failure Heart Disease Father [place]; of [place] at 73 Cancer Maternal Grandmother not a [...] Comments Blood Pressure 113/59 03/29/2022 1:55 PM ELECTRICAL AUTOMATION ENGINEER Pulse 68 03/29/2022 1:55 PM ELECTRICAL AUTOMATION ENGINEER Temperature 36.4 ??C (97.6 ??F) 05/28/2019 9:48 AM CS T Respiratory Rate 14 03/29/2022 1:55 PM ELECTRICAL AUTOMATION ENGINEER Oxygen Saturation 97% 03/29/2022 1:55 PM ELECTRICAL AUTOMATION ENGINEER Inhaled Oxygen Concentration - - Weight 52.6 kg (115 lb 14.4 oz) 03/29/2022 1:55 PM ELECTRICAL AUTOMATION ENGINEER Height 151.1 cm (4' 11.5) 01/30/2022 1 1:07 AM CDT Body Mass Index 23.02 01/30/2022 11:07 AM CDT Plan of Treatment Health Maintenance Due Date Last Done Comments Zoster (shingles) series for age 50+ (2 of 3) 07/28/2007 06/02/2007 COVID-19 vaccine series ( season) 2022 01/30/2022, 03/29/2021, 06/21/2020, Additional history exists BMI (ht and wt on same day) for age 18+ 01/30/2023 01/30/2022, 10/25/2021, 05/28/2019, Additional history exists Depression screening for age 12+ 01/30/2023 01/30/2022, 01/30/2021, 01/26/2021, Additional history exists Medicare Wellness for age 65+ 01/31/2023, 11/30/2018, 11/14/2017, Additional history exists Tetanus booster 10/29/2023 10/28/2013, 0807/2010, 11/29/2010 Influenza for age 65+ 12/28/2023 01/30/2022 , 02/01/2021, 02/19/2019, Additional history exists Tdap Completed 10/28/2013 Pneumococcal series for age 65+ Completed 6, 02/17/2012 DEXA/DXA scan for age 65+ Completed 12/07/2018, Procedures Procedure Name Priority Date/Time Associated Diagnosis Comments XR DXA BONE DENSITY 2 SITES AXIAL Routine 12/07/2018 11:00 AM CDT Age-related osteoporosis without current pathological fracture from Last 3 Months or Most Recently Relevant to Health Maintenance Results * (ABNORMAL) XR DXA BONE DENSITY 2 SITES AXIAL (12/07/2018 11:00 AM CDT) Anatomical Region Laterality Modality Spine, HIPS, HIPL, HIPR Other Narrative 12/11/2018 12:50 PM CDT Please see scanned document for results of this study. Milton Vazquez MD DEXA from Last 3 Months or Most Recently Relevant to Health Maintenance Advance Directives Documents on File Type Date Recorded Patient Lmft Expl anation Healthcare Directive 09/25/1983 LIVING WILL, [facility], 09/25/[birth year] Care Teams Semiconductor Equipment Technician Relationship Specialty Start Date End Date Kiera Sheikh DO Jade [address] [place] [address] [place] [address] PCP - General Internal Medicine 01/26/21 Radha Castro MD [address] [place] [address] Dermatology 12/28/11 Carolina Clayton, RN [facility]ly [facility], [address] [place], [place] [phone] Heel [place] - [facility] Registered Nurse 09/27/19 Kadie Carey RN [facility] [address] [id number] Heel [place] - [facility] Registered Nurse 09/27/19 Nancy Nagy RN [facility] [address] [id number] Heel [place] - [facility] Registered Nurse 02/15/21
[2023-08-19 13:27] LABS: Chloride* 107 mmol/L (96-114); Potassium* 4.7 mmol/L (3.6-5.1); Sodium* 142 mmol/L (135-149)
[2023-08-19 13:30] LABS: Anion Gap 12 mEq/L (7-15); Blood Urea Nitrogen* 17 mg/dL (7-30); Carbon Dioxide* 23 mmol/L (20-32); Creatinine* 0.6 mg/dL (0.5-1.5); Estimated Glomerular Filt Rate 87 ml/min; Glucose* 119 mg/dL (60-115)
[2023-08-19 13:31] LABS: Calcium* 10.1 mg/dL (8.4-10.6)
== END 2023-08-19 11:57 | disposition home or self-care (01) ==
LOC: NPINS 11:56
PROVIDERS: PCP Family Medicine; Visit Provider Nurse Practitioner Gerontology
DX: E87.5 Hyperkalemia (principal)
CPT/HCPCS: 80048

== ENCOUNTER 2024-06-09 14:21 | Outpatient (REF) | payer OTHER, SELFPAY ==
[2024-06-09 15:42] LABS: Appearance Urine Cloudy (Clear); Bilirubin Urine Negative (Negative); Blood Urine Negative (Negative); Color Urine Yellow (Yellow); Glucose Urine Negative (Negative); Ketones Urine Trace (Negative); Leukocyte Esterase Urine 3+ (Negative); Nitrite Urine Negative (Negative); Protein Urine Negative (Negative); Specific Gravity Urine 1.025 (1.000-1.030); Urobilinogen Urine 0.2 (0.2-1.0)
[2024-06-09 16:42] LABS: Bacteria Urine Few; Squamous Epithelial Cell Urine Few (None-Few)
[2024-06-09 18:45] LABS: Basophils Absolute Auto 0.04 K/uL (0.00-0.30); Basophils Percent Auto 0.5 % (0.0-3.0); Eosinophils Absolute Auto 0.12 K/uL (0.00-0.50); Eosinophils Percent Auto 1.5 % (0.0-7.0); Hematocrit 42.2 % (33.0-51.0); Hemoglobin* 13.7 gm/dL (12.0-16.0); Immature Granulocytes Abs Auto 0.02 K/uL (0.00-0.30); Immature Granulocytes Pct Auto 0.3 %; Lymphocytes Percent Auto 17.4 % (20-44); Mean Corpuscular HGB Conc 33 gm/dL (32-36); Mean Corpuscular Hemoglobin 31 pg (26-34); Mean Corpuscular Volume 97 fL (80-100); Monocytes Percent Auto 8.6 % (0.0-11.0); Neutrophils Absolute Auto 5.61 K/uL (1.7-7.0); Neutrophils Percent Auto 71.7 % (42.0-72.0); Platelet Count* 190 K/uL (140-440); Red Blood Count 4.36 m/uL (4.00-5.20); White Blood Count* 7.82 K/uL (4.50-11.00)
[2024-06-09 18:46] LABS: Slide Review Reflex No
[2024-06-10 00:22] LABS: Chloride* 108 mmol/L (96-114); Potassium* 4.1 mmol/L (3.6-5.1); Sodium* 140 mmol/L (135-149)
[2024-06-10 00:25] LABS: Anion Gap 9 mEq/L (7-15); Blood Urea Nitrogen* 21 mg/dL (7-30); Calcium* 9.5 mg/dL (8.4-10.6); Carbon Dioxide* 23 mmol/L (20-32); Creatinine* 0.6 mg/dL (0.5-1.5); Estimated Glomerular Filt Rate 86 ml/min; Glucose* 89 mg/dL (60-115)
== END 2024-06-09 14:22 | disposition home or self-care (01) ==
LOC: NPINS 14:21
PROVIDERS: PCP Family Medicine; Visit Provider Nurse Practitioner Gerontology
DX: Z91.81 History of falling (principal)
CPT/HCPCS: 80048; 81001; 85025; 87086

== ENCOUNTER 2025-01-25 11:43 | Outpatient (REF) | payer OTHER, SELFPAY ==
[2025-01-25 12:15] LABS: Chloride* 106 mmol/L (96-114); Potassium* 4.8 mmol/L (3.6-5.1); Sodium* 140 mmol/L (135-149)
[2025-01-25 12:17] LABS: Hematocrit* 40.7 % (33.0-51.0); Hemoglobin* 13.3 gm/dL (12.0-16.0); Immature Granulocytes Abs Auto 0.01 K/uL (0.00-0.30); Immature Granulocytes Pct Auto 0.2 %; Mean Corpuscular HGB Conc 33 gm/dL (32-36); Mean Corpuscular Hemoglobin 32 pg (26-34); Mean Corpuscular Volume 99 fL (80-100); RDW Coefficient of Variation % 12.7 % (11.5-15.5); Red Blood Count* 4.11 m/uL (4.00-5.20); White Blood Count* 5.83 K/uL (4.50-11.00)
[2025-01-25 12:18] LABS: Anion Gap 6 mEq/L (7-15); Blood Urea Nitrogen* 14 mg/dL (7-30); Calcium* 10.0 mg/dL (8.4-10.6); Carbon Dioxide* 28 mmol/L (20-32); Cholesterol* 155 mg/dL (90-199); Creatinine* 0.7 mg/dL (0.5-1.5); Estimated Glomerular Filt Rate 83 ml/min; Glucose* 91 mg/dL (60-115); HDL Cholesterol* 75 mg/dL (>=50); Triglycerides* 125 mg/dL (40-149)
[2025-01-25 12:19] LABS: Lymphocytes Absolute Auto 1.00 K/uL (0.90-2.90); Slide Review Reflex No
--- OUTSIDE RECORDS SUMMARY | 2025-01-26 00:23 | XMS_ITS | Clinical Summary ---
Author Organization [employer] [facility] Address [address] [place] [address] Care Team Providers Care Paperhanger Contractor Name Role Phone Radha Castro MD Unavailable + Carolina Clayton RN Unavailable [phone] Kadie Carey RN Unavailable [phone] Kiera Sheikh DO Primary Care Provider Nancy Nagy RN Unavailable [phone] Allergies Active Allergy Reactions Criticality Noted Date Comments Codeine Nausea Only,Diaphoresis,Dizzin ess 09/01/2007 Lightheadedness Hydrocodone-Acetamino phen 02/12/2008 Medications cholecalciferol (VITAMIN D-3) 2,000 unit capsule Take 1 capsule by mouth once daily. 0 12/20/19 15 Active calcium carbonate (CALCIUM 600) 600 mg (1,500 mg) tablet Take 1 tablet by mouth 2 times daily with meals. 0 12/20/19 15 Active multivitamin-minerals therapeutic (THERAGRAN-M) tablet Daily Active amLODIPine (NORVASC) 5 mg tabletIndications:Essent ial hypertension Take 1 Tablet (5 mg) by mouth once daily. 90 Tablet 3 01/31/20 22 Active lisinopril-hydrochloroth iazide (10-12.5 mg) tablet (PRINZIDE; ZESTORETIC)Indications:E ssential hypertension Take 1 Tablet by mouth once daily. 90 Tablet 3 01/31/20 22 Active lovastatin (MEVACOR) 20 mg tabletIndications:Pure hypercholesterolemia Take 1 Tablet (20 mg) by mouth once daily with evening meal. Wait until they call for this. 90 tablet. 3 01/31/20 22 Active potassium chloride (KLOR-CON M20) 20 mEq Extended-Release tabletIndications:Essent ial hypertension Take 1 Tablet (20 mEq) by mouth two times daily with meals. 180 Tablet 3 01/31/20 Active donepeziL (ARICEPT) 10 mg tabletIndications:Modera te dementia without behavioral disturbance (HC) Take 1 Tablet (10 mg) by mouth at bedtime. 90 Tablet 3 01/31/20 Active cyanocobalamin (Vitamin B-12) 1,000 mcg tablet Take 1 tablet every other day 90 Tablet 03/29/20 Active COVID-19 antigen test (COVID-19 At-Home Test) kitIndications:COVID-19 virus infection As directed. 4 Kit 5 03/29/20 Active Active Problems Problem Noted Date Diagnosed Date Cerebral aneurysm 01/30/2022 Moderate dementia without behavioral disturbance 08/05/2021 Urinary incontinence 02/16/2020 Overview (02/16/2020): Code R32 She receives these pads [facility]. Milton Vazquez MD signed electronically .................... 02/16/2020 Post-menopausal osteoporosis 12/24/2018 Overview (12/24/2018): She completed 5 years of Fosamax in [...] L4-5 10/08/2017 Lump of Left Forehead 03/06/2015 Overview (03/06/2015): 09/2013 10 mm 04/2014 7 mm 02/2015 7 mm Reflux esophagitis 06/23/2013 Overview (07/02/2016): EGD 06/2016 normal, biopsy negative for celiac disease, patient can try gluten- free diet to see if this helps her abdominal pain Abdominal pain, epigastric 06/09/2013 Overview (06/09/2013): EGD 05/2013 reflux Unspecified essential hypertension 01/14/2007 Pure hypercholesterolemia 01/14/2007 Immunizations Immunization Administration Dates Next Due AMB INFLUENZA IIV3 [...] coma and liver failure Heart Disease Father [place]; of [place] at 73 Cancer Maternal Grandmother not a [...] Housing in the Last Year 1 03/29/2022 Comments No Sex and Gender Information Value Date Recorded Sex Assigned at Not on file Legal Sex Female 7:12 AM LEAD JAVA PROGRAMMER Gender Identity Not on file Sexual Orientation Not on file Obstetrics History Last Filed Vital Signs Vital Sign Reading Time Taken Comments Blood Pressure 113/59 03/29/2022 1:55 PM LEAD JAVA PROGRAMMER Pulse 68 03/29/2022 1:55 PM LEAD JAVA PROGRAMMER Temperature 36.4 C (97.6 F) 05/28/2019 9:48 AM LEAD JAVA PROGRAMMER Respiratory Rate 14 03/29/2022 1:55 PM LEAD JAVA PROGRAMMER Oxygen Saturation 97% 03/29/2022 1:55 PM LEAD JAVA PROGRAMMER Inhaled Oxygen Concentration - - Weight 52.6 kg (115 lb 14.4 oz) 03/29/2022 1:55 PM LEAD JAVA PROGRAMMER Height 151.1 cm (4' 11.5) 01/30/2022 1 1:07 AM CDT Body Mass Index 23.02 01/30/2022 11:07 AM CDT Plan of Treatment Health Maintenance Due Date Last Done Comments Zoster (shingles) series for age 50+ (2 of 3) 07/28/2007 06/02/2007 RSV vaccine for adults or (1 - 1-dose 75+ series) 2011 BMI (ht and wt on same day) for age 18+ 01/30/2023 01/30/2022, 10/25/2021, 05/28/2019, Additional history exists Depression screening for age 12+ 01/30/2023 01/30/2022, 01/30/2021, 01/26/2021, Additional history exists Medicare Wellness for age 65+ 01/31/2023 01/30/2022, 11/30/2018, 11/14/2017, Additional history exists Tetanus booster 10/29/2023 10/28/2013, 07/2010, 11/29/2010 COVID-19 vaccine series ( season) 2024 01/30/2022, 03/29/2021, 06/21/2020, Additional history exists Influenza Vaccine (#1) 2024 , 02/01/2021, 02/19/2019, Additional history exists Pneumococcal series for age 50+ Completed 05/17/2015, 02/17/2012 DEXA/DXA scan for age 65+ Completed 12/07/2018, Hepatitis B series for 19+ Aged Out N o longer eligible based on patient's age to complete this topic Procedures Procedure Name Priority Date/Time Associated Diagnosis [...] scanned document for results of this study. 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 Expl anation Healthcare Directive 09/25/1983 LIVING WILL, [facility], 09/25/83 Care Teams Paperhanger Contractor Relationship Specialty Start Date End Date Kiera Sheikh DO [address] [place] [id number] PCP - General Internal Medicine 01/26/21 Radha Castro MD [address] [place] [phone] Dermatology 12/28/11 Carolina Clayton RN [address] [facility], [address] [place], [place] [phone] Speech And Language Specialist - [facility] Registered Nurse 09/27/19 Kadie Carey RN [facility] [address] [place], [place] [phone] Speech And Language Specialist - [facility] Registered Nurse 09/27/19 Nancy Nagy RN [facility] [address] [place] [address] Speech And Language Specialist - [facility] Registered Nurse 02/15/21
== END 2025-01-25 11:44 | disposition home or self-care (01) ==
LOC: NPINS 11:43
PROVIDERS: PCP Family Medicine; Visit Provider Nurse Practitioner Gerontology
DX: R53.1 Weakness (principal); E78.5 Hyperlipidemia, unspecified
CPT/HCPCS: 80048; 80061; 85025

== ENCOUNTER 2025-02-17 22:04 | Outpatient (CLI) | payer OTHER, SELFPAY | END 2025-02-17 22:05 | disposition home or self-care (01) | LOC: AMB 02-21 05:46 | PROVIDERS: PCP Family Medicine; Visit Provider Family Medicine | DX: S49.92XA Unspecified injury of left shoulder and upper arm, initial encounter (principal); S09.93XA Unspecified injury of face, initial encounter; W18.30XA Fall on same level, unspecified, initial encounter; Y92.122 Bedroom in nursing home as the place of occurrence of the external cause | CPT/HCPCS: A0425; A0427 ==

== ENCOUNTER 2025-02-17 22:43 | Inpatient (IN) | payer OTHER, SELFPAY ==
--- OUTSIDE RECORDS SUMMARY | 2025-02-17 22:46 | XMS_ITS | Clinical Summary ---
Author Organization [employer] [facility] Address [address] [place] [address] Care Team Providers Care Bottom Saw Operator Name Role Phone Radha Castro MD Unavailable + Carolina Clayton RN Unavailable [phone] Kadie Carey RN Unavailable [phone] Kiera Sheikh DO Primary Care Provider Nancy Nagy RN Unavailable [phone] Allergies Active Allergy Reactions Criticality Noted Date [...] R32 She receives these pads monthly from [facility]. Milton Vazquez MD signed electronically .................... [...] coma and liver failure Heart Disease Father [place]; of [place] at 73 Cancer Maternal Grandmother not a [...] on file Legal Sex Female 7:12 AM SENIOR RESEARCH ANALYST Gender Identity Not on file Sexual Orientation Not on file Obstetrics History Last Filed Vital Signs Vital Sign Reading Time Taken Comments Blood Pressure 113/59 03/29/2022 1:55 PM SENIOR RESEARCH ANALYST Pulse 68 03/29/2022 1:55 PM SENIOR RESEARCH ANALYST Temperature 36.4 C (97.6 F) 05/28/2019 9:48 AM SENIOR RESEARCH ANALYST Respiratory Rate 14 03/29/2022 1:55 PM SENIOR RESEARCH ANALYST Oxygen Saturation 97% 03/29/2022 1:55 PM SENIOR RESEARCH ANALYST Inhaled Oxygen Concentration - - Weight 52.6 kg (115 lb 14.4 oz) 03/29/2022 1:55 PM SENIOR RESEARCH ANALYST Height 151.1 cm (4' 11.5) 01/30/2022 1 [...] Documents on File Type Date Recorded Patient Cop Expl anation Healthcare Directive 09/25/1983 LIVING WILL, [facility], 09/25/83 Care Teams Bottom Saw Operator Relationship Specialty Start Date End Date Kiera Sheikh DO [address] [place] [id number] PCP - General Internal Medicine 01/26/21 Radha Castro MD [address] [place] [phone] Dermatology 12/28/11 Carolina Clayton RN [address] [facility], [address] [place], [place] [phone] Dye Reel Operator Helper - [facility] Registered Nurse 09/27/19 Kadie Carey RN [facility] [address] [place], [place] [phone] Dye Reel Operator Helper - [facility] Registered Nurse 09/27/19 Nancy Nagy RN [facility] [address] [place] [address] Dye Reel Operator Helper - [facility] Registered Nurse 02/15/21
[2025-02-17 22:54] VITALS: BP 142/119; PULSE 79; RESP 20; TEMP 36.7; O2SAT 98; BMI 23.2
[2025-02-18] VITALS (25 sets, daily range): BP systolic 110–153; BP diastolic 56–88; PULSE 62–89; RESP 16–20; TEMP 36.3–37.2; O2SAT 94–100; BMI 22.4; BMI 22.5
--- NOTE | 2025-02-18 00:06 | CRLHL7_ITS ---
For Patients: As a result of the Cures Act, medical imaging exams and procedure reports are released immediately into your electronic medical record. You may view this report before your referring provider. If you have questions, please contact your health care provider. Indication: Fall, pain Technique: Two views left shoulder, two views of the left humerus Comparison: Left shoulder radiographs performed 03/12/2016 Findings/Impression: Humerus: Acute fracture through the proximal humerus involving the greater tuberosity. Shoulder: No additional fracture appreciated. Glenohumeral alignment is maintained. Dictated by Sergey Wallis MD @ 02/18/2025 1:29:01 AM (Electronically Signed)
--- NOTE | 2025-02-18 00:09 | ED.GENADULT ---
HPI - General Adult General Chief complaint: Fall/Minor Trauma Stated complaint: shoulder pain Time Seen by Provider: 02/17/25 23:56 Source: patient, family and EMS History of Present Illness HPI narrative: 89-year-old female presents to the emergency department for evaluation of left upper humerus and shoulder pain after an unwitnessed fall in her bathroom. Fall from standing height on to typical hard surface. Pain constant, achy, worse with movement. She reports that she had gotten up to go to the bathroom when she lost her balance, tripped and fell. There was no dizziness, no chest pain, no shortness of breath that preceded the fall. Family reports that she does fall frequently and she confirms this. She does have some memory issues, currently living at [facility]. Review of the ED records shows that this is in fact true. She has had no recent medication changes, is not on any narcotic pain medications. She has had no recent fevers, signs of illness or other contributing factors. She reports pain in the left proximal humerus only, denies pain in other areas. Was given IM fentanyl of by EMS. She did have about an hour and 15 minute wait prior to being seen due to very busy ED, prior to the start of my shift. Fall was about 30 minutes prior to arrival. She is not anticoagulated. Family at the bedside report that she is mentating at baseline. ROS is negative times 12 systems with the exception of the left shoulder pain. Past medical history notable for hypertension, dementia. Sensitivities to codeine and hydrocodone which do not sound like a true allergy. Medication list reviewed that accompanies her from her [facility]. Related Data Home Medications ?Medication ?Instructions ?Recorded ?Confirmed amlodipine 5 mg tablet 5 mg PO DAILY 03/17/22 03/17/22 donepezil 10 mg tablet 10 mg PO HS 03/17/22 03/17/22 lisinopril 10 1 tab PO DAILY 03/17/22 03/17/22 mg-hydrochlorothiazide 12.5 mg tablet lovastatin 20 mg tablet 20 mg PO DAILY 03/17/22 03/17/22 potassium chloride 20 mEq 20 meq PO BID 03/17/22 03/17/22 tablet,extended release(part/cryst) Allergies Allergy/AdvReac Type Severity Reaction Status Date / Time codeine Allergy Mild Sweaty Verified 02/17/25 23:10 hydrocodone Allergy Mild Sweaty Verified 02/17/25 23:10 PFSH PFSH Medical History 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, left foot (ICD-10) Cerebral aneurysm ?I67.1 - Cerebral aneurysm, nonruptured (ICD-10) Spondylolisthesis of lumbar region ?M43.16 - Spondylolisthesis, lumbar region (ICD-10) Spinal stenosis of lumbar region ?M48.061 - Spinal stenosis, lumbar region without neurogenic claudication (ICD-10) Reflux esophagitis ?K21.00 - Gastro-esophageal reflux disease with esophagitis, without bleeding (ICD-10) Hypokalemia ?E87.6 - Hypokalemia (ICD-10) Cognitive dysfunction ?F09 - Unspecified mental disorder due to known physiological condition (ICD-10) Hyperlipidemia ?E78.5 - Hyperlipidemia, unspecified (ICD-10) Hypertension ?I10 - Essential (primary) hypertension (ICD-10) Surgical History History of bilateral cataract extraction ?Z98.41 - Cataract extraction status, right eye (ICD-10) ?Z98.42 - Cataract extraction status, left eye (ICD-10) History of back surgery ?Z98.890 - Other specified postprocedural states (ICD-10) History of bunionectomy ?Z98.890 - Other specified postprocedural states (ICD-10) History of total abdominal hysterectomy and bilateral salpingo-oophorectomy ?Z90.710 - Acquired absence of both cervix and uterus (ICD-10) ?Z90.722 - Acquired absence of ovaries, bilateral (ICD-10) ?Z90.79 - Acquired absence of other genital organ(s) (ICD-10) History of hysterectomy ?Z90.710 - Acquired absence of both cervix and uterus (ICD-10) Social History Smoking Status: Never smoker Do you use any of these nicotine containing products: None Second hand tobacco smoke exposure: No How often do you have a drink containing alcohol: never How often do you have six or more drinks on one occasion: Never AUDIT-C Alcohol total score: 0 Non-prescribed substance use: denies use service: No Exam Const: Vital Signs, click to edit/add: Vital Signs - 24 hr 02/17/25 22:54 Temperature 98.0 F Pulse Rate [Pulse Oximeter] 79 Respiratory Rate 20 Blood Pressure [Ri ght Upper Arm] 142/119 H Pulse Oximetry 98 Oxygen Delivery Me thod Room Air Documenting provider has reviewed patient's vital signs: yes Common normals: no apparent distress General appearance: cooperative Other: Mild memory impairment but speaks in full sentences, seems reliable for yes no questions. HENMT: Common normals: TM's normal bilaterally and external nose normal Face and sinus: normal facial exam and face symmetric Nose: external nose normal Tympanic membrane: TM's normal bilaterally Mouth: oral and palatal mucosa normal Throat: posterior oropharynx normal Other: Very small superficial abrasion on left yazdanism, not bleeding, no open wound. Eye: Common normals: PERRL, EOMs intact bilaterally and conjunctivae normal General eye: normal appearance of both eyes Conjunctiva: conjunctiva(e) normal Pupil: PERRL Neck & C-Spine: Common normals: full ROM and no lymphadenopathy General: normal visual inspection Cervical spine: cervical ROM normal Chest: Common normals: inspection of chest normal and palpation of chest normal Resp: Common normals: normal respiratory effort, no use of accessory muscles and clear to auscultation bilaterally Effort & inspection: able to speak in complete sentences Auscultation: clear to auscultation bilaterally Cardio: Common normals: regular rate, regular rhythm, S1 normal heart sound, S2 normal heart sound and no murmurs Rate: regular rate Rhythm: regular rhythm Heart sounds: S1 normal and S2 normal GI: Common normals: Normal to inspection, nondistended, normoactive bowel sounds present, soft to palpation, non-tender and no hepatosplenomegaly Palpation: soft and no hepatosplenomegaly Extremity: Other: Lower extremities normal to inspection. No tenderness, swelling, deformity feet, ankles, knees, hips or thighs. Palpation of the pelvis reveals no point tenderness. Examination right upper extremity reveals no tenderness to shoulder, clavicle, elbow, wrist or hands. Normal partition making machine operator strength on this side. Examination of left upper extremity reveals tenderness to palpation of shoulder joint mostly at the proximal humerus, anteriorly. There is some swelling, no obvious deformity. No tenderness to palpation of the elbow, forearm, wrist, hand. Normal partition making machine operator strength, sensation in the fingers and abduction and adduction of fingers. Neuro: Speech: speech normal Motor exam: strength 5/5 throughout and no tremor noted Psych: Appearance: grossly normal Attitude: engaged Activity/motor behavior: appropriate eye contact Insight: fair Judgement: fair Skin: Narrative: Small superficial abrasion to left yazdanism, no other areas of injury to the skin noted. Course Course ED Course: 89-year-old female with unwitnessed fall in bathroom. Suspect proximal humerus fracture. Asking for pain medication, will give 0.25 mg of IV Dilaudid. Will obtain EKG, troponin, basic labs, lactate to ensure that there are no underlying signs of infection that contributed to her fall though this does sound mechanical. X-rays of shoulder and prior humerus. Patient guarding arm significantly, likely fracture and will likely need admission and possibly operative repair. Reevaluation(s) Reevaluation #1: Update: X-ray suggestive of proximal humerus fracture. Labs are for the most part reassuring. There are no vital signs that would suggest sepsis, mildly elevated lactate is likely secondary to dehydration. Will give 0.5 L of IV fluid and continue to monitor patient closely. Spoke with orthopedics regarding the fracture. It does not sound as though operative repair is recommended but they will consult on patient and morning. She is currently in a memory care assisted living. She uses a walker at baseline and is now unable to perform her ADLs with this fracture. Will admit for observation, PT and OT consult to determine level of care needed, [facility]. dietary services director consult in the morning to help facilitate this. Arm in a sling in the interim. Hospitalist has accepted admission. Vital Signs Vital signs: Initial Vital Signs Temperature 98.0 F 02/17/25 22:54 Temperature Source Temporal Artery Scan 02/17/25 22:54 Pulse Rate 79 02/17/25 22:54 Respiratory Rate 20 02/17/25 22:54 Blood Pressure 142/119 H 02/17/25 22:54 Blood Pressure Mean 126 H 02/17/25 22:54 Blood Pressure Position Supine 02/17/25 22:54 Pulse Oximetry 98 02/17/25 22:54 Oxygen Delivery Method Room Air 02/17/25 22:54 Vital Signs Temperature 98.0 F 02/17/25 22:54 Pulse Rate 79 02/17/25 22:54 Respiratory Rate 20 02/17/25 22:54 Blood Pressure 142/119 H 02/17/25 22:54 Pulse Oximetry 98 02/17/25 22:54 Oxygen Delivery Method Room Air 02/17/25 22:54 Temperature 98.0 F 02/17/25 22:54 Pulse Rate 83 02/18/25 02:54 Respiratory Rate 18 02/18/25 02:54 Blood Pressure 153/88 H 02/18/25 02:54 Pulse Oximetry 96 02/18/25 02:54 Oxygen Delivery Method Room Air 02/18/25 02:54 Medications Administered Medications: Discontinued Medications Generic Name Dose Route Start Last Admin Trade Name Freq PRN Reason Stop Dose Admin Hydromorphone HCl 0.25 mg 02/18/25 00:06 02/18/25 00:21 Hydromorphone 0.5 Mg/0.5 Ml Inj IVP 02/18/25 00:07 0.25 mg ONCE ONE Administration Medical Decision Making Lab Data Lab results reviewed: Yes I reviewed the patient's lab results Lab results narrative: Some mild hyponatremia, consistent with prior similar values. Normal liver enzymes, minimal leukocytosis but no other symptoms of infection. Mildly elevated lactate likely from dehydration. Fluids given in ED. Labs: Lab Results 02/18/25 Range/Units 00:31 WBC 11.40 H (4.50-11.00) K/uL RBC 4.06 (4.00-5.20) m/uL Hgb 13.0 (12.0-16.0) gm/dL Hct 38.9 (33.0-51.0) % MCV 96 (80-100) fL MCH 32 (26-34) pg MCHC 33 (32-36) gm/dL RDW Coeff of John 12.3 (11.5-15.5) % Plt Count 217 (140-440) K/uL Neut % (Auto) 86.5 H (42.0-72.0) % Lymph % (Auto) 7.0 L (20-44) % [place] % (Auto) 5.7 (0.0-11.0) % Eos % (Auto) 0.2 (0.0-7.0) % Baso % (Auto) 0.4 (0.0-3.0) % Neut # (Auto) 9.90 H (1.7-7.0) K/uL Lymph # (Auto) 0.80 L (0.90-2.90) K/uL [place] # (Auto) 0.60 (0.00-0.90) K/UL Eos # (Auto) 0.00 (0.00-0.50) K/uL Baso # (Auto) 0.00 (0.00-0.30) K/uL Abs Immat Gran (auto) 0.00 (0.00-0.30) K/uL Imm/Tot Granulo (auto) 0.2 % Sodium 134 L (135-149) mmol/L Potassium 3.8 (3.6-5.1) mmol/L Chloride 103 (96-114) mmol/L Carbon Dioxide 20 (20-32) mmol/L Anion Gap 11 (7-15) mEq/L BUN 19 (7-30) mg/dL Creatinine 0.6 (0.5-1.5) mg/dL Estimated Creat Clear 27.93 Estimated GFR 86 ml/min Glucose 144 H (60-115) mg/dL Lactate 3.6 H (0.5-1.9) mmol/L Calcium 9.4 (8.4-10.6) mg/dL Total Bilirubin 0.5 (0.1-1.5) mg/dL AST 26 (12-35) U/L ALT 22 (4-35) U/L Alkaline Phosphatase 89 (40-150) U/L Total Protein 6.7 (6.0-8.3) g/dL Albumin 4.1 (3.3-5.0) g/dL Imaging Data X-ray left shoulder and humerus: Attestation: I have reviewed the pertinent imaging results. My impression: Proximal humerus fracture. Radiologist's impression: Comparison: Left shoulder radiographs performed 03/12/2016 Findings/Impression: Humerus: Acute fracture through the proximal humerus involving the greater tuberosity. Shoulder: No additional fracture appreciated. Glenohumeral alignment is maintained. Dictated by Sergey Wallis MD @ 02/18/2025 1:29:01 AM Discharge Plan Discharge Clinical Impression: Fracture, humerus closed Patient Disposition: Admitted As Observation Condition: Stable
--- OUTSIDE RECORDS SUMMARY | 2025-02-18 00:28 | XMS_ITS | Clinical Summary ---
Author Organization [employer] [facility] Address [address] [place] [id number] Care Team Providers Care Hris Analyst Name Role Phone Radha Castro MD Unavailable + Carolina Clayton RN Unavailable Kadie Carey RN Unavailable Keira Sheikh DO Primary Care Provider Nancy Nagy RN Unavailable Allergies Active Allergy Reactions Criticality Noted Date [...] R32 She receives these pads monthly from [facility]. Milton Vazquez MD signed electronically .................... [...] coma and liver failure Heart Disease Father [place]; of [place] at 73 Cancer Maternal Grandmother not a [...] on file Legal Sex Female 7:12 AM PICKLING GRADER Gender Identity Not on file Sexual Orientation Not on file Obstetrics History Last Filed Vital Signs Vital Sign Reading Time Taken Comments Blood Pressure 113/59 03/29/2022 1:55 PM PICKLING GRADER Pulse 68 03/29/2022 1:55 PM PICKLING GRADER Temperature 36.4 C (97.6 F) 05/28/2019 9:48 AM PICKLING GRADER Respiratory Rate 14 03/29/2022 1:55 PM PICKLING GRADER Oxygen Saturation 97% 03/29/2022 1:55 PM PICKLING GRADER Inhaled Oxygen Concentration - - Weight 52.6 kg (115 lb 14.4 oz) 03/29/2022 1:55 PM PICKLING GRADER Height 151.1 cm (4' 11.5) 01/30/2022 1 [...] Documents on File Type Date Recorded Patient Kraft Digester Operator Expl anation Healthcare Directive 09/25/1983 LIVING WILL, [facility], 09/25/83 Care Teams Hris Analyst Relationship Specialty Start Date End Date Kiera Sheikh DO [address] [place] [id number] PCP - General Internal Medicine 01/26/21 Radha Castro MD [address] [place] [id number] Dermatology 12/28/11 Carolina Clayton RN [address] [facility] [place], [place] [id number] Assistant Operations Manager - [facility] Registered Nurse 09/27/19 Kadie Carey RN [facility] [address] [place], [place] [id number] Assistant Operations Manager - [facility] Registered Nurse 09/27/19 Nancy Nagy RN [facility] [address] [place] [address] Assistant Operations Manager - [facility] Registered Nurse 02/15/21
[2025-02-18 00:51] LABS: Hematocrit* 38.9 % (33.0-51.0); Hemoglobin* 13.0 gm/dL (12.0-16.0); Immature Granulocytes Pct Auto 0.2 %; Lymphocytes Absolute Auto 0.80 K/uL (0.90-2.90); Mean Corpuscular HGB Conc 33 gm/dL (32-36); Mean Corpuscular Hemoglobin 32 pg (26-34); Mean Corpuscular Volume 96 fL (80-100); RDW Coefficient of Variation % 12.3 % (11.5-15.5); Red Blood Count* 4.06 m/uL (4.00-5.20); White Blood Count* 11.40 K/uL (4.50-11.00)
[2025-02-18 00:54] LABS: Immature Granulocytes Abs Auto 0.00 K/uL (0.00-0.30); Slide Review Reflex No
[2025-02-18 01:23] LABS: Albumin* 4.1 g/dL (3.3-5.0); Chloride* 103 mmol/L (96-114); Sodium* 134 mmol/L (135-149)
[2025-02-18 01:24] LABS: Potassium* 3.8 mmol/L (3.6-5.1)
[2025-02-18 01:26] LABS: Alanine Aminotransferase* 22 U/L (4-35); Anion Gap 11 mEq/L (7-15); Aspartate Amino Transferase* 26 U/L (12-35); Blood Urea Nitrogen* 19 mg/dL (7-30); Carbon Dioxide* 20 mmol/L (20-32); Creatinine* 0.6 mg/dL (0.5-1.5); Est. Creatinine Clearance* 27.93; Estimated Glomerular Filt Rate 86 ml/min
[2025-02-18 01:27] LABS: Alkaline Phosphatase* 89 U/L (40-150); Bilirubin Total* 0.5 mg/dL (0.1-1.5); Calcium* 9.4 mg/dL (8.4-10.6); Glucose* 144 mg/dL (60-115); Total Protein* 6.7 g/dL (6.0-8.3)
[2025-02-18 01:29] LABS: Lactate* 3.6 mmol/L (0.5-1.9)
--- NOTE | 2025-02-18 04:19 | CRLHL7_ITS ---
For Patients: As a result of the Century Cures Act, medical imaging exams and procedure reports are released immediately into your electronic medical record. You may view this report before your referring provider. If you have questions, please contact your health care provider. INDICATION: Fall TECHNIQUE: CT head without contrast. COMPARISON: CT head 10/17/2024 FINDINGS: MASS EFFECT AND VENTRICLES: There is 0.3 centimeters of leftward midline shift. Mild mass effect on the left ventricular body from subdural hemorrhage. Basal cisterns patent. Left holohemispheric sulcal effacement. The ventricles, cisterns, and other CSF containing spaces are symmetrically prominent secondary to diffuse parenchymal volume loss but are otherwise normal as to shape and position. BRAIN: Diffuse cerebral volume loss. Periventricular and subcortical hypodensities likely secondary to age-related microvascular ischemic changes. No acute infarct or hemorrhage. VASCULAR: No acute abnormalities of the cavernous carotids and vertebral vessels on noncontrast exam. EXTRA-AXIAL: Mixed density left holohemispheric subdural hematoma measuring up to 1.1 centimeters in thickness. EXTRA-CRANIAL: No acute calvarial fractures. Small osteoma along the left frontal scalp. Mild soft tissue swelling along the left forehead. Mild scattered sinus mucosal thickening. Mastoids are clear. Bilateral lens replacements. 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 IMPRESSION: Left holohemispheric mixed density subdural hematoma with 0.3 centimeters of leftward midline shift. No soft tissue swelling along the left forehead. Please note that all CT scans at this facility use dose modulation, iterative reconstruction, and/or weight-based dosing when appropriate to reduce radiation dose to as low as reasonably achievable. Dictated by Briana Garcia MD @ 02/18/2025 5:19:52 AM (Electronically Signed)
[2025-02-18] MEDS: ACETAMINOPHEN 325 MG TABLET 650 MG PO ×4 (04:53→20:41)
[2025-02-18] MEDS: 0.9 % SODIUM CHLORIDE 500 ML 500 ML IV (05:12)
--- NOTE | 2025-02-18 05:37 | W.PM.TELEH&P ---
Telehealth- H&P: HPI History of Present Illness Date Seen: 02/18/25 Chief complaint: shoulder pain Narrative: Caterina Williamson was seen as an interactive telehealth visit. Nursing staff has assisted with interview and physical exam. Caterina Williamson is a 89 y/o F with PMHx significant for dementia, HTN, HLP, Hypokalemia, spondylolisthesis of lumbar spine, who presented to [facility] with c/o fall and left shoulder pain. Patient currently lives at [facility]. She reports she was going to the bathroom when she lost her balance tripped and fell. She has significant pain in her left upper arm/shoulder. She also has a bruise on her left forehead. She otherwise denies any chest pain, abdominal pain, nausea or vomiting. Workup in the emergency department showed mild leukocytosis with white count of 11.4, hemoglobin 13, hematocrit 38.9, platelets 217. Sodium 134, potassium 3.8, chloride 103, bicarb 20, anion gap 11, BUN 19, creatinine 0.6. lactate was 3.6. Shoulder x-ray was done which showed acute fracture through the proximal humerus involving the greater tuberosity. CT head was done after the admission which showed left holohemispheric mixed density subdural hematoma with 0.3 cm of right word midline shift. No soft tissue swelling along the forehead Review of Systems Narrative: Pt able to provide basic history. Denies any chest pain, abdominal pain, nausea/vomiting. 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, left foot (ICD-10) Cerebral aneurysm ?I67.1 - Cerebral aneurysm, nonruptured (ICD-10) Spondylolisthesis of lumbar region ?M43.16 - Spondylolisthesis, lumbar region (ICD-10) Spinal stenosis of lumbar region ?M48.061 - Spinal stenosis, lumbar region without neurogenic claudication (ICD-10) Reflux esophagitis ?K21.00 - Gastro-esophageal reflux disease with esophagitis, without bleeding (ICD-10) Hypokalemia ?E87.6 - Hypokalemia (ICD-10) Cognitive dysfunction ?F09 - Unspecified mental disorder due to known physiological condition (ICD-10) Hyperlipidemia ?E78.5 - Hyperlipidemia, unspecified (ICD-10) Hypertension ?I10 - Essential (primary) hypertension (ICD-10) Surgical History History of bilateral cataract extraction ?Z98.41 - Cataract extraction status, right eye (ICD-10) ?Z98.42 - Cataract extraction status, left eye (ICD-10) History of back surgery ?Z98.890 - Other specified postprocedural states (ICD-10) History of bunionectomy ?Z98.890 - Other specified postprocedural states (ICD-10) History of total abdominal hysterectomy and bilateral salpingo-oophorectomy ?Z90.710 - Acquired absence of both cervix and uterus (ICD-10) ?Z90.722 - Acquired absence of ovaries, bilateral (ICD-10) ?Z90.79 - Acquired absence of other genital organ(s) (ICD-10) History of hysterectomy ?Z90.710 - Acquired absence of both cervix and uterus (ICD-10) Social History Smoking Status: Never smoker Do you use any of these nicotine containing products: None Second hand tobacco smoke exposure: No How often do you have a drink containing alcohol: never How often do you have six or more drinks on one occasion: Never AUDIT-C Alcohol total score: 0 Non-prescribed substance use: denies use service: No Meds Home Medications and Allergies Home Medications ?Medication ?Instructions ?Recorded ?Confirmed ?Type amlodipine 5 mg tablet 5 mg PO DAILY 03/17/22 03/17/22 History donepezil 10 mg tablet 10 mg PO HS 03/17/22 03/17/22 History lisinopril 10 1 tab PO DAILY 03/17/22 03/17/22 History mg-hydrochlorothiazide 12.5 mg tablet lovastatin 20 mg tablet 20 mg PO DAILY 03/17/22 03/17/22 History potassium chloride 20 mEq 20 meq PO BID 03/17/22 03/17/22 History tablet,extended release(part/cryst) Allergies Allergy/AdvReac Type Severity Reaction Status Date / Time codeine Allergy Mild Sweaty Verified 02/17/25 23:10 hydrocodone Allergy Mild Sweaty Verified 02/17/25 23:10 Exam Narrative Exam Narrative: Physical Exam GENERAL: ?vital signs reviewed, well developed and nourished, in no distress. Pt is awake, alert, interactive. Oriented to place, not oriented to todays date. HEENT: pupils are equal round and reactive to light, extraocular movements are grossly within normal limits and oral mucosa is moist. NECK: Supple HEART: Regular rate and rhythm without any rubs, murmurs, or gallops. LUNGS: Clear to auscultation bilaterally with good air movement throughout ABDOMEN: Observation from nurse assisted exam, abdomen appears soft, nontender, and nondistended with Positive bowel sounds noted. EXTREMITIES: Able to lift right arm and both legs. Unable to move right arm due to shoulder pain. SKIN:? Observed warm and dry with color normal Const Vital Signs, click to edit/add: Vital Signs - 24 hr 02/17/25 22:54 02/18/25 02:50 02/18/25 02:54 Temperature 98.0 F 97.4 F L Pulse Rate [Left Pulse Oximeter] 85 Pulse Rate [Pulse Oximeter] 79 83 Respiratory Rate 20 18 18 Blood Pressure [Right Arm] 136/73 Blood Pressure [Right Upper Arm] 142/119 H 153/88 H Pulse Oximetry 98 98 96 Oxygen Delivery Method Room Air Room Air Room Air Hospitalist - H&P: Result Labs Labs: Short CBC 02/18/25 Range/Units 00:31 WBC 11.40 H (4.50-11.00) K/uL Hgb 13.0 (12.0-16.0) gm/dL Hct 38.9 (33.0-51.0) % Plt Count 217 (140-440) K/uL BMP 02/18/25 00:31 Sodium 134 L Potassium 3.8 Chloride 103 Carbon Dioxide 20 BUN 19 Creatinine 0.6 Glucose 144 H Calcium 9.4 Liver Function 02/18/25 Range/Units 00:31 Total Bilirubin 0.5 (0.1-1.5) mg/dL AST 26 (12-35) U/L ALT 22 (4-35) U/L Alkaline Phosphatase 89 (40-150) U/L Albumin 4.1 (3.3-5.0) g/dL Assessment and Plan Assessment and plan (1) Fracture, humerus closed: Status: Acute (2) Acute subdural hematoma: Status: Acute Plan Patient is a 89-year-old female with past medical history significant for HTN, HLP and dementia who lives at a [facility], had an episode of fall that was unwitnessed. In the emergency department she was found to have elevated lactate 3.6. Mild leukocytosis with white count of 11.4. UA is pending. Left shoulder X ray showed acute fracture through proximal humerus involving greater tuberosity. Pt had bruise on left forehead. CT head completed after admission, pt found to have subdural hematoma with 0.3 centimeter rightward midline shift. # Left Humerus Fracture - ER provider discussed with orthopedics information management specialist. They recommend non surgical management. - cont with pain control - Pt/OT evaluation # Subdural Hematoma with 0.3 cm midline shift. - Paged neurosurgery. waiting call back. # h/o HTN # H/o HLP - resume home meds as bp tolerated. # DVT proph - SCD Total Time Spent Total Time Spent: 60 Telehealth: Statement Statement Telehealth Visit: Today's History and Physical is provided via interactive telehealth by Keren Lubin MD.? Patient is located at [facility].? Provider is located at [facility].? Nursing staff assisted with the patient's exam. The visit being done today meets criteria for a telehealth visit and the patient or patient?s parent/guardian is aware the visit is a telehealth visit. Camera Start Time: 04:09 Camera End Time: 04:18
[2025-02-18 06:04] LABS: Troponin, Point-of-Care* 0.02 ng/ml (0.01-0.04)
[2025-02-18 06:05] LABS: Hematocrit* 37.4 % (33.0-51.0); Hemoglobin* 12.5 gm/dL (12.0-16.0); Immature Granulocytes Pct Auto 0.2 %; Mean Corpuscular HGB Conc 33 gm/dL (32-36); Mean Corpuscular Hemoglobin 32 pg (26-34); Mean Corpuscular Volume 97 fL (80-100); RDW Coefficient of Variation % 12.5 % (11.5-15.5); Red Blood Count* 3.87 m/uL (4.00-5.20); White Blood Count* 12.64 K/uL (4.50-11.00)
[2025-02-18 06:13] LABS: Immature Granulocytes Abs Auto 0.00 K/uL (0.00-0.30); Lymphocytes Absolute Auto 0.70 K/uL (0.90-2.90); Slide Review Reflex No
[2025-02-18 06:17] LABS: Chloride* 106 mmol/L (96-114); Sodium* 138 mmol/L (135-149)
[2025-02-18 06:18] LABS: Potassium* 3.7 mmol/L (3.6-5.1)
[2025-02-18 06:20] LABS: Blood Urea Nitrogen* 16 mg/dL (7-30); Creatinine* 0.5 mg/dL (0.5-1.5); Est. Creatinine Clearance* 27.93; Estimated Glomerular Filt Rate 90 ml/min
[2025-02-18 06:21] LABS: Anion Gap 12 mEq/L (7-15); Calcium* 8.9 mg/dL (8.4-10.6); Carbon Dioxide* 20 mmol/L (20-32); Glucose* 138 mg/dL (60-115)
--- NOTE | 2025-02-18 07:44 | PC.NURSE ---
Addendum entered by Karrie Vee RN 02/18/25 08:00: arrival to the floor @0250: RN, web developer programmer, aerosol supervisor, and ONEAL present upon pt's arrival. Pt. daughter bedside. Pt. wearing a long sleeve shirt spotted w/ trace amounts of blood. Pt. has abrasion to L of her L eye- dried blood line from abrasion to hairline and in hair. ONEAL cleaned up blood and nursing staff removed shirt to place pt. in gown. Original Note: shift note: Pt is alert, oriented to self. Pt VSS. Pt arrived to the floor at 0250 verbalizing pain. Pain meds given and active ice applied. See EMAR. Pt keeping L arm flexed to body; needs reinforcement and reminders. Vasile BRICEÑO assessed pt. -see orders. CT scan and EKG performed. Tele in place, NSR. Pt. has abrasion to L eye w/ ecchymosis. Pt. has bruising on L forearm. Pt. is able to make needs know; is forgetful. External catheter in place and suctioning properly w/ output. Pt. daughter accompanied her to the floor & is supportive & helpful to RN in collecting information.
[2025-02-18 08:53] LABS: Appearance Urine Clear (Clear)
--- NOTE | 2025-02-18 09:24 | P.IMPN_ITS ---
Assessment and Plan Assessment and plan (1) Acute subdural hematoma: Problem comment: - Subdural Hematoma with 0.3 cm midline shift. - will manage BP (currently well controlled with home meds) - Keep HOB elevated - q1h neurochecks. Results of repeat CT head: Stable. - 02/18 I've called out to neurosurgery at [facility] with results of repeat CT head and am waiting for a callback. Status: Acute (2) Lactate blood increase: Problem comment: - Suspect due to SDH, no evidence of sepsis. Status: Acute (3) Fracture, humerus closed: Problem comment: - ER provider discussed with orthopedics public relations sales marketing. They recommend non surgical management. - 02/18 I spoke with ortho who also reviewed left shoulder CT. They recommend non operative management with a sling for 1-2 week. demetris Gregg PA will come see patient later today. - cont with pain control, Sling, PT/OT evaluation - Possible TCU vs back to memory care on d/c Status: Acute (4) Hyperlipidemia: Problem comment: - continue lovastatin Status: Chronic (5) Hypertension: Problem comment: - coninue lisinopril and amlodipine to keep SBP<140. Status: Chronic (6) Cognitive dysfunction: Status: Chronic Plan Patient is a 89-year-old female with past medical history significant for HTN, HLP and dementia who lives at a half-way/retirement, had an episode of fall that was unwitnessed. In the emergency department she was found to have elevated lactate 3.6. Mild leukocytosis with white count of 11.4. UA is pending. Left shoulder X ray showed acute fracture through proximal humerus involving greater tuberosity. Pt had bruise on left forehead. CT head completed after admission, pt found to have subdural hematoma with 0.3 centimeter rightward midline shift. VTE prophylaxis with SCDs, avoiding pharmacologic prophylaxis due to SDH. Total Time Spent Total Time Spent: Today I spent 65 minutes seeing the patient, discussing with the patient's daughter, reviewing [facility]panse and EPIC notes/diagnostics/labs, discussing the care plan with our care team that includes social work, PT/OT, pharmacy, RT, penitentiary and documenting my impressions and plan in the medical record. Subjective Time Seen by Provider: 09:10 Date Seen: 02/18/25 Interval history: Lluvia tells me she feels well. She denies headache or vision changes. She c/o a little pain in her left shoulder when she moves her fingers. Her left arm is in a sling. Exam Narrative: Exam Narrative: General: No acute distress. Awake, alert, oriented to self and general time of day. No pallor. No jaundice. Laceration and ecchymosis on left face noted, hemostatic at this time. Oropharynx: Clear. Mucous membranes moist. Cardiovascular: Regular rate and rhythm. No murmurs, gallops, or rubs. Respiratory: Clear to auscultation bilaterally. No wheezes or crackles. Abdomen: Bowel sounds present. Soft, nondistended, nontender. Extremities: No lower extremity edema. Neuro: Cranial nerves 2-12 are intact. Extraocular movements are full. No nystagmus. No facial asymmetry. Tongue is midline. Peripheral vision and vision are grossly intact. Strength is 4+/5 in left foot flexion, 5/5 in other muscle groups of left leg. Strength 5/5 in right upper extremity and right lower extremity. Left arm superannuation clerk strength is 5/5. The rest of the left arm strength was not assessed due to left humerus fracture. Light touch sensation is intact in face body and extremities, Const: Vital Signs, click to edit/add: Vital Signs - 24 hr 02/17/25 22:54 02/18/25 02:50 02/18/25 02:54 Temperature 98.0 F 97.4 F L Pulse Rate Pulse Rate [Left P ulse Oximeter] 85 Pulse Rate [Pulse Oximeter] 79 83 Respiratory Rate 20 18 18 Blood Pressure [Ri ght Arm] 136/73 Blood Pressure [Ri ght Upper Arm] 142/119 H 153/88 H Pulse Oximetry 98 98 96 Oxygen Delivery Me thod Room Air Room Air Room Air 02/18/25 06:01 02/18/25 06:35 Temperature Pulse Rate 82 Pulse Rate [Left P ulse Oximeter] 85 Pulse Rate [Pulse Oximeter] Respiratory Rate Blood Pressure [Ri ght Arm] Blood Pressure [Ri ght Upper Arm] Pulse Oximetry Oxygen Delivery Me thod Labs Labs: Laboratory Results - last 24 hr 02/18/25 02/18/25 02/18/25 00:06 00:31 06:00 WBC 11.40 H 12.64 H RBC 4.06 3.87 L Hgb 13.0 12.5 Hct 38.9 37.4 MCV 96 97 MCH 32 32 MCHC 33 33 RDW Coeff of John 12.3 12.5 Plt Count 217 206 Neut % (Auto) 86.5 H 88.5 H Lymph % (Auto) 7.0 L 5.9 L [place] % (Auto) 5.7 5.1 Eos % (Auto) 0.2 0.1 Baso % (Auto) 0.4 0.2 Neut # (Auto) 9.90 H 11.20 H Lymph # (Auto) 0.80 L 0.70 L [place] # (Auto) 0.60 0.60 Eos # (Auto) 0.00 0.00 Baso # (Auto) 0.00 0.00 Abs Immat Gran (auto) 0.00 0.00 Imm/Tot Granulo (auto) 0.2 0.2 Sodium 134 L 138 Potassium 3.8 3.7 Chloride 103 106 Carbon Dioxide 20 20 Anion Gap 11 12 BUN 19 16 Creatinine 0.6 0.5 Estimated Creat Clear 27.93 27.93 Estimated GFR 86 90 Glucose 144 H 138 H Lactate 3.6 H Calcium 9.4 8.9 Total Bilirubin 0.5 AST 26 ALT 22 Alkaline Phosphatase 89 Total Protein 6.7 Albumin 4.1 Urine Color Urine Appearance Urine pH Ur Specific [place] Urine Protein Urine Glucose (UA) Urine Ketones Urine Blood Urine Nitrite Urine Bilirubin Urine Urobilinogen Ur Leukocyte Esterase Urine RBC Urine WBC Ur Squamous Epith Cells Amorphous Sediment Urine Bacteria POC Troponin I 0.02 02/18/25 Unknown WBC RBC Hgb Hct MCV MCH MCHC RDW Coeff of John Plt Count Neut % (Auto) Lymph % (Auto) [place] % (Auto) Eos % (Auto) Baso % (Auto) Neut # (Auto) Lymph # (Auto) [place] # (Auto) Eos # (Auto) Baso # (Auto) Abs Immat Gran (auto) Imm/Tot Granulo (auto) Sodium Potassium Chloride Carbon Dioxide Anion Gap BUN Creatinine Estimated Creat Clear Estimated GFR Glucose Lactate Calcium Total Bilirubin AST ALT Alkaline Phosphatase Total Protein Albumin Urine Color Yellow Urine Appearance Clear Urine pH 6.0 Ur Specific [place] 1.025 Urine Protein 1+ A Urine Glucose (UA) Negative Urine Ketones 2+ A Urine Blood Negative Urine Nitrite Negative Urine Bilirubin Negative Urine Urobilinogen 0.2 Ur Leukocyte Esterase Negative Urine RBC 0-2 Urine WBC 0-2 Ur Squamous Epith Cells Few Amorphous Sediment Moderate A Urine Bacteria Moderate A POC Troponin I 02/18/2025 EKG: Normal sinus rhythm, 81 beats per minute, normal EKG. Ordering Physician: Keren Lubin MD Date of Service: 02/18/25 Procedure(s): CT head/brain wo con Accession Number(s): [id number] cc: Chance Alba M.D.; Keren Lubin MD~ For Patients: As a result of the Cures Act, medical imaging exams and procedure reports are released immediately into your electronic medical record. You may view this report before your referring provider. If you have questions, please contact your health care provider. INDICATION: Follow-up subdural hematoma with midline shift. TECHNIQUE: CT head without contrast. COMPARISON: Head CT 02/18/2025 earlier on the same day. FINDINGS: Brain parenchyma and extra-axial spaces: Stable size and extent of left cerebral convexity subdural hematoma with maximal thickness of 1.1 cm (series 4, image 27) and unchanged 0.3 cm [id number] midline shift. As seen previously there is mild mass effect on the left lateral ventricle and effacement of the left frontal, parietal, and temporal sulci. The lester-white differentiation is normal. Moderate parenchymal volume loss. Moderate supratentorial and periventricular white matter chronic microvascular ischemic changes. CSF spaces: No intraventricular hemorrhage. Effacement of the left lateral ventricle as above. Compensatory dilatation of the ventricles and basal cisterns within normal limits for age and degree of parenchymal volume loss. Skull base and calvarium: The visualized paranasal sinuses and mastoid air cells demonstrate no acute or significant findings. The visualized orbits are grossly unremarkable apart from bilateral lens replacements. No skull fractures. IMPRESSION: Stable size and extent of 1.1 cm left cerebral convexity subdural hematoma with stable 0.3 cm [id number] midline shift. Please note that all CT scans at this facility use dose modulation, iterative reconstruction, and/or weight-based dosing when appropriate to reduce radiation dose to as low as reasonably achievable. Dictated by Omer Calloway MD @ 02/18/2025 11:22:40 AM (Electronically Signed)
--- NOTE | 2025-02-18 09:39 | P.CCN_ITS ---
Subjective Subjective Time Seen by Provider: 07: Date Seen: 02/18/25 Principal diagnosis: subdural hematoma Interval history: Hospitalist Update -Called by [facility] hospitalist for hand-off of care for this patient at 7:10am -Patient arrived on floor at 2:50 a.m. -Tele hospitalist was on camera 4:00 a.m. -Trauma to patient's left gnosticism was noted. Stat head CT was ordered. Neuro exam was reassuring. -Rads called at 5:23 am with a 1.1 cm left holohemispheric subdural hematoma that resulted in 0.3cm (3mm) rightward midline shift -Tele hospitalist called neurosurgery (Dr. Ramírez) who reviewed images; He recommended starting keppra, repeat imaging in six hours, goals of care discussion is needed -Tele hospitalist called daughter and she felt overwhelmed and made no new recommendations from the patient's POLST. -As of 829 - Keppra had not been ordered to start until 0900; ordered at 0600 PHYSICAL EXAM: I was bedside from 715-730 CONSTITUTIONAL: Pt is awake, alert and answering my questions. She thinks she is in her [place] and is wondering why nobody has come to get her for breakfast. She quickly resets and acknowledges she is in the hospital. Pt can read the TV channel and is instructing me on what channel she wanted to watch. GENERAL: Well-developed. No respiratory distress. Looks stated age. VITAL SIGNS: vitals reviewed. 153/88. pulse 85. rr 18 on room air. afebrile. HEENT: 3 x 4 cm abrasion to the left gnosticism. dependent ecchymosis noted. PERR. Tongue midline. No cervical spine tenderness and range of motion is normal. EOMI. CARDIAC: rhythm is regular. There is no S3 or rub. No harsh murmurs. Extremities show trace edema with symmetrical pulses. MSK: left arm not taken thru the range of motion tests, good tester regulator and sensation. PULM: good air entry with no wheeze. NEURO: Speech is fluent. A brief neurologic exam is negative. GCS 14. SKIN: abrasion as above. PSYCHIATRIC: Euthymic. IMPRESSION/PLAN -SDH with shift. Neuro exam stable. Appreciate the work of our [facility] colleague, Dr. Lubin. Will get Keppra administered now. BP goal is less 140 SBP. Change admission status to inpatient and CCU status. Q1H neuro checks. Repeat scan in 6 hours from first. Will update neurosurg later this morning. Daughter is bedside. -Proximal Humerus Fracture. Discussed with ortho. Sling for comfort. nonemergent CT to assure non-op plan. elbow ROM only for the next two weeks. MEDICAL NECESSITY FOR HOSPITALIZATION Anticipated midnights in the hospital: 2+ Admitting diagnosis: mechanical fall with significant injuiry, subdural hematoma with midline shift, proximal humerus fracture Risk of morbidity and mortality: high Acuity is characterized as high and reflected in: age, traumatic brain injury, dementia, accompanying humerus fracture and medical comorbities. This patient will require hospital services as outlined in the assessment and plan in order to stabilize and be safely discharged to a lower level of care. Because of the risk and acuity as described above, this patient cannot be managed at a lower level of care. LENGTH OF STAY: 2 IP ? Anticipated LOS>2 midnights due to acuity of clinical presentation requiring inpatient level of care
--- NOTE | 2025-02-18 09:47 | PC.NURSE ---
Does have mild weakness of left leg unsure if this is normal. When spoke with her daughter Addie she states that she has been weak lately and falling.
--- NOTE | 2025-02-18 10:09 | CRLHL7_ITS ---
For Patients: As a result of the Century Cures Act, medical imaging exams and procedure reports are released immediately into your electronic medical record. You may view this report before your referring provider. If you have questions, please contact your health care provider. INDICATION: Pain after a fall. COMPARISON: Plain films 18 February 2025. TECHNIQUE: Multidetector imaging centered on the left shoulder with axial, coronal sagittal reformats. FINDINGS: Mildly comminuted minimally impacted and slightly inferiorly displaced fracture of the greater tuberosity. No intra-articular extension to the joint. No extension through the neck. No extension to the lesser tuberosity. No joint effusion. Maintained acromial distance. Mild degenerative arthrosis AC joint. Mineralization synovial capsular hypertrophy superiorly. No significant inferior osteophyte. Mild osteoarthritis narrowing in the glenohumeral joint space with minimal humeral and glenoid osteophytes. Prominent atherosclerosis of visualize non aneurysmal aorta. IMPRESSION: Mildly impacted and comminuted and slightly inferiorly depressed fracture of the greater tuberosity. Please note that all CT scans at this facility use dose modulation, iterative reconstruction, and/or weight-based dosing when appropriate to reduce radiation dose to as low as reasonably achievable. Dictated by Leonel Szymanski MD @ 02/18/2025 11:14:08 AM (Electronically Signed)
--- NOTE | 2025-02-18 10:09 | CRLHL7_ITS ---
For Patients: As a result of the Century Cures Act, medical imaging exams and procedure reports are released immediately into your electronic medical record. You may view this report before your referring provider. If you have questions, please contact your health care provider. INDICATION: Follow-up subdural hematoma with midline shift. TECHNIQUE: CT head without contrast. COMPARISON: Head CT 02/18/2025 earlier on the same day. FINDINGS: Brain parenchyma and extra-axial spaces: Stable size and extent of left cerebral convexity subdural hematoma with maximal thickness of 1.1 cm (series 4, image 27) and unchanged 0.3 cm [id number] midline shift. As seen previously there is mild mass effect on the left lateral ventricle and effacement of the left frontal, parietal, and temporal sulci. The lester-white differentiation is normal. Moderate parenchymal volume loss. Moderate supratentorial and periventricular white matter chronic microvascular ischemic changes. CSF spaces: No intraventricular hemorrhage. Effacement of the left lateral ventricle as above. Compensatory dilatation of the ventricles and basal cisterns within normal limits for age and degree of parenchymal volume loss. Skull base and calvarium: The visualized paranasal sinuses and mastoid air cells demonstrate no acute or significant findings. The visualized orbits are grossly unremarkable apart from bilateral lens replacements. No skull fractures. IMPRESSION: Stable size and extent of 1.1 cm left cerebral convexity subdural hematoma with stable 0.3 cm [id number] midline shift. Please note that all CT scans at this facility use dose modulation, iterative reconstruction, and/or weight-based dosing when appropriate to reduce radiation dose to as low as reasonably achievable. Dictated by Omer Calloway MD @ 02/18/2025 11:22:40 AM (Electronically Signed)
[2025-02-18 10:58] LABS: Lactate* 3.8 mmol/L (0.5-1.9)
[2025-02-18] MEDS: SODIUM CHLORIDE 0.9 % (FLUSH) 10 ML SYRINGE 5 ML IVF ×2 (11:43→20:42)
--- NOTE | 2025-02-18 11:44 | PM.ORCN ---
History of Present Illness HPI Time Seen by Provider: 12:00 Date Seen: 02/18/25 Consult date: 02/18/25 Requesting physician: Duyen Gallo Chief complaint: shoulder pain Narrative: Lluvia is a pleasant 89 year-old female that sustained a fall onto her right shoulder yesterday when she tripped backwards. DOI: 02/17/25. Lluvia sustained a subdural hematoma and a proximal left humerus fracture. This morning, she is resting comfortably in her bed. Sling in place. She c/o moderate pain over the fracture site that is well managed with acetaminophen. Denies numbness/tingling distally. Denies previous left shoulder injuries. Denies left shoulder surgical history. Right hand dominant. Accompanied by her daughter (Addie) and son-in-law (Roberto). 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, left foot (ICD-10) Cerebral aneurysm ?I67.1 - Cerebral aneurysm, nonruptured (ICD-10) Spondylolisthesis of lumbar region ?M43.16 - Spondylolisthesis, lumbar region (ICD-10) Spinal stenosis of lumbar region ?M48.061 - Spinal stenosis, lumbar region without neurogenic claudication (ICD-10) Reflux esophagitis ?K21.00 - Gastro-esophageal reflux disease with esophagitis, without bleeding (ICD-10) Hypokalemia ?E87.6 - Hypokalemia (ICD-10) Cognitive dysfunction ?F09 - Unspecified mental disorder due to known physiological condition (ICD-10) Hyperlipidemia ?E78.5 - Hyperlipidemia, unspecified (ICD-10) Hypertension ?I10 - Essential (primary) hypertension (ICD-10) Surgical History History of bilateral cataract extraction ?Z98.41 - Cataract extraction status, right eye (ICD-10) ?Z98.42 - Cataract extraction status, left eye (ICD-10) History of back surgery ?Z98.890 - Other specified postprocedural states (ICD-10) History of bunionectomy ?Z98.890 - Other specified postprocedural states (ICD-10) History of total abdominal hysterectomy and bilateral salpingo-oophorectomy ?Z90.710 - Acquired absence of both cervix and uterus (ICD-10) ?Z90.722 - Acquired absence of ovaries, bilateral (ICD-10) ?Z90.79 - Acquired absence of other genital organ(s) (ICD-10) History of hysterectomy ?Z90.710 - Acquired absence of both cervix and uterus (ICD-10) Social History What is your current living situation?: I presently have a place to live Problems where you live: no known problems In the past 12 months, utilities in danger of being shut off: no In past 12 months, lack of transportation kept you from medical appts, meetings, work, or getting things needed for daily living: no In the past 12 mos, have been you worried that your food would run out before you had money to buy more?: never true In the past 12 mos, the food you bought just didn't last and you didn't have money to buy more?: never true Highest level of school completed/degree received: high school graduate Smoking Status: Never smoker Do you use any of these nicotine containing products: None Second hand tobacco smoke exposure: No How often do you have a drink containing alcohol: never How often do you have six or more drinks on one occasion: Never AUDIT-C Alcohol total score: 0 Non-prescribed substance use: denies use Caffeine: Yes How often does anyone, including family, friends and others, physically hurt you: never How often does anyone, including family, friends and others, insult or talk down to you: never How often does anyone, including family, friends and others, threaten you with harm: never How often does anyone, including family, friends and others, scream or curse at you: never service: No Meds Home Medications and Allergies Home Medications ?Medication ?Instructions ?Recorded ?Confirmed ?Type amlodipine 5 mg tablet 5 mg PO DAILY 03/17/22 02/18/25 History donepezil 10 mg tablet 10 mg PO HS 03/17/22 02/18/25 History lovastatin 20 mg tablet 20 mg PO DAILY 03/17/22 03/17/22 History acetaminophen 500 mg tablet 500 mg PO Q6H PRN 02/18/25 02/18/25 History cholecalciferol (vitamin D3) 50 50 mcg PO DAILY 02/18/25 02/18/25 History mcg (2,000 unit) tablet lisinopril 10 mg tablet 10 mg PO DAILY 02/18/25 02/18/25 History Allergies Allergy/AdvReac Type Severity Reaction Status Date / Time codeine Allergy Mild Sweaty Verified 02/17/25 23:10 hydrocodone Allergy Mild Sweaty Verified 02/17/25 23:10 Ortho Exam Narrative Exam Narrative: Patient is alert and oriented x3. No acute distress. Converses with nonlabored breathing. Sling in place. No abrasions nor open wounds over left shoulder. Appropriate warmth. No erythema, induration or cutaneous changes. Diffuse left shoulder swelling. Left shoulder motion deferred. CMS intact with 2+ radial pulse. [place], warm digits. Sensation confirmed distally as well as confirmed over the deltoid (axillary nerve). Const Vital Signs, click to edit/add: Vital Signs - 24 hr 02/17/25 22:54 02/18/25 02:50 02/18/25 02:54 Temperature 98.0 F 97.4 F L Pulse Rate Pulse Rate [Left Pulse Oximeter] 85 Pulse Rate [Pulse Oximeter] 79 83 Respiratory Rate 20 18 18 Blood Pressure [Right Arm] 136/73 Blood Pressure [Right Upper Arm] 142/119 H 153/88 H Pulse Oximetry 98 98 96 Oxygen Delivery Method Room Air Room Air Room Air 02/18/25 06:01 02/18/25 06:35 02/18/25 08:45 Temperature 97.6 F Pulse Rate 82 Pulse Rate [Left Pulse Oximeter] 85 83 Pulse Rate [Pulse Oximeter] Respiratory Rate 20 Blood Pressure [Right Arm] 142/64 H Blood Pressure [Right Upper Arm] Pulse Oximetry 100 Oxygen Delivery Method 02/18/25 09:00 02/18/25 09:38 02/18/25 10:52 Temperature 97.6 F 98.6 F Pulse Rate Pulse Rate [Left Pulse Oximeter] 89 83 84 Pulse Rate [Pulse Oximeter] Respiratory Rate 20 20 Blood Pressure [Right Arm] 145/60 H 130/64 Blood Pressure [Right Upper Arm] Pulse Oximetry 98 96 Oxygen Delivery Method 02/18/25 11:00 Temperature 98.6 F Pulse Rate Pulse Rate [Left Pulse Oximeter] 72 Pulse Rate [Pulse Oximeter] Respiratory Rate 20 Blood Pressure [Right Arm] 125/59 L Blood Pressure [Right Upper Arm] Pulse Oximetry 96 Oxygen Delivery Method Results Labs Labs: Laboratory Results - last 48 hr 02/18/25 02/18/25 02/18/25 00:06 00:31 06:00 WBC 11.40 H 12.64 H RBC 4.06 3.87 L Hgb 13.0 12.5 Hct 38.9 37.4 MCV 96 97 MCH 32 32 MCHC 33 33 RDW Coeff of John 12.3 12.5 Plt Count 217 206 Neut % (Auto) 86.5 H 88.5 H Lymph % (Auto) 7.0 L 5.9 L [place] % (Auto) 5.7 5.1 Eos % (Auto) 0.2 0.1 Baso % (Auto) 0.4 0.2 Neut # (Auto) 9.90 H 11.20 H Lymph # (Auto) 0.80 L 0.70 L [place] # (Auto) 0.60 0.60 Eos # (Auto) 0.00 0.00 Baso # (Auto) 0.00 0.00 Abs Immat Gran (auto) 0.00 0.00 Imm/Tot Granulo (auto) 0.2 0.2 Sodium 134 L 138 Potassium 3.8 3.7 Chloride 103 106 Carbon Dioxide 20 20 Anion Gap 11 12 BUN 19 16 Creatinine 0.6 0.5 Estimated Creat Clear 27.93 27.93 Estimated GFR 86 90 Glucose 144 H 138 H Lactate 3.6 H Calcium 9.4 8.9 Total Bilirubin 0.5 AST 26 ALT 22 Alkaline Phosphatase 89 Total Protein 6.7 Albumin 4.1 Urine Color Urine Appearance Urine pH Ur Specific [place] Urine Protein Urine Glucose (UA) Urine Ketones Urine Blood Urine Nitrite Urine Bilirubin Urine Urobilinogen Ur Leukocyte Esterase Urine RBC Urine WBC Ur Squamous Epith Cells Amorphous Sediment Urine Bacteria POC Troponin I 0.02 02/18/25 02/18/25 10:53 Unknown WBC RBC Hgb Hct MCV MCH MCHC RDW Coeff of John Plt Count Neut % (Auto) Lymph % (Auto) [place] % (Auto) Eos % (Auto) Baso % (Auto) Neut # (Auto) Lymph # (Auto) [place] # (Auto) Eos # (Auto) Baso # (Auto) Abs Immat Gran (auto) Imm/Tot Granulo (auto) Sodium Potassium Chloride Carbon Dioxide Anion Gap BUN Creatinine Estimated Creat Clear Estimated GFR Glucose Lactate 3.8 H Calcium Total Bilirubin AST ALT Alkaline Phosphatase Total Protein Albumin Urine Color Yellow Urine Appearance Clear Urine pH 6.0 Ur Specific [place] 1.025 Urine Protein 1+ A Urine Glucose (UA) Negative Urine Ketones 2+ A Urine Blood Negative Urine Nitrite Negative Urine Bilirubin Negative Urine Urobilinogen 0.2 Ur Leukocyte Esterase Negative Urine RBC 0-2 Urine WBC 0-2 Ur Squamous Epith Cells Few Amorphous Sediment Moderate A Urine Bacteria Moderate A POC Troponin I Diagnostic results Shoulder MRI: report reviewed and image reviewed Shoulder CT: report reviewed and image reviewed Additional Comments: Left shoulder CT dated 02/18/25 was reviewed with the patient and also Dr. Suhas Welch. This shows: Mildly impacted and comminuted and slightly inferiorly depressed fracture of the greater tuberosity. 2-view left shoulder images were reviewed from [facility] dated 02/18/25. This shows: : Acute fracture through the proximal humerus involving the greater tuberosity. CT recommended to better evaluate fracture dimensions. Assessment and Plan Assessment and plan (1) Fracture, humerus closed: Problem comment: Closed treatment of a closed, acute, minimally displaced left greater tuberosity fracture. DOI: 02/17/25. Status: Acute Assessment and Plan: Non-operative treatment is recommended. Lluvia may continue to wear her sling daily, however I'd like her to remove this sling several times per day to work on elbow motion. Lluvia will gradually wean out of her sling in 2 weeks. Lluvia was instructed to not externally rotation nor abduct her left shoulder. This was demonstrated. Patient stated understanding. For pain management, I recommend icing and acetaminophen PRN. [place] narcotics for severe pain and minimize use of narcotics. Lluvia will follow-up with myself in 2 weeks for clinical re-evaluation and initiation of Physical Therapy. All questions were answered. Phone Orthopedics with any questions or concerns. [phone] Total time spent: Total time spent is greater than 50% in coordination of care (as documented) at patient's floor/unit and/or counseling patient:
--- NOTE | 2025-02-18 11:48 | REH.PT ---
Hold PT per MD at AM rounds.
--- NOTE | 2025-02-18 13:45 | W.PC.NUTR.NO ---
Nutrition Progress Note Progress Note Progress Note: RDN with nutrition screen related to positive skin risk score. Patient admitted for fall, found to have humerus fracture and left holohemispheric subdural hematoma with midline shift. Medical history includes but not limited to dementia, HTN, HLP, Hypokalemia, and spondylolisthesis of lumbar spine. Current weight 53.977 kg; height 154.94 cm; BMI 22.5 kg/m2. No weight history in chart since 2021. MST score 0 for recent weight loss. Current diet order is Regular. Patient ate 50% lunch today. Diet orer before lunch was clear liquids. With stable weight and 50% or more intakes, no nutrition interventions at this time. RDN will continue to monitor and follow-up prn.
[2025-02-18] MEDS: LOVASTATIN 20 MG TABLET PO (15:11)
--- NOTE | 2025-02-18 15:17 | PC.NURSE ---
End of Shift Note: Patient was admitted last night after falling and hitting her head. It is hard to tell if there is any change neurologically as she has a history of dementia. At times she answers me appropriately then at other times times she can't tell me where she is. She thinks she is back at the place she lives of [facility]. She was bedrest until she was cleared by neurology. Then with the assistance of PT we attempted to ambulate her to the recliner which did not go well. About 1[address] thru the process she started to drag her left leg. She states that her legs have been weak lately and that is why she has been falling. We did use the long steady with her and this went better and was safer with her humerus fx. Pain is being controlled with just tylenol. Will continue to monitor until able to give report to the next nurse.
[2025-02-18] MEDS: DONEPEZIL 10 MG TABLET PO (20:42)
[2025-02-19] VITALS (16 sets, daily range): BP systolic 101–143; BP diastolic 52–75; PULSE 67–86; RESP 16–18; TEMP 36.6–36.9; O2SAT 93–97
--- NOTE | 2025-02-19 00:01 | PC.NURSE ---
According to Provider: OK to move Neuroes to Q4 starting at 0300 if unremarkable.
--- NOTE | 2025-02-19 06:16 | PC.NURSE ---
Pt rested well this night. Neuroes unremarkable. Pt states she no longer has a headache. Pt pleasantly confused. Appears to be her baseline. Pain in L Shoulder tolerated well.
[2025-02-19] MEDS: LOVASTATIN 20 MG TABLET PO (08:32)
[2025-02-19] MEDS: ENOXAPARIN 40 MG/0.4 ML INJ SUBCUT (08:32)
[2025-02-19] MEDS: SODIUM CHLORIDE 0.9 % (FLUSH) 10 ML SYRINGE 5 ML IVF ×2 (08:33→20:35)
[2025-02-19] MEDS: ACETAMINOPHEN 325 MG TABLET 650 MG PO ×2 (08:33→20:12)
[2025-02-19] MEDS: AMLODIPINE 5 MG TABLET PO (08:33)
--- NOTE | 2025-02-19 09:15 | CRLHL7_ITS ---
For Patients: As a result of the Century Cures Act, medical imaging exams and procedure reports are released immediately into your electronic medical record. You may view this report before your referring provider. If you have questions, please contact your health care provider. Indication: Fall with bruising and weakness. Technique: Pelvis and left hip 3 views. Comparison: March 17, 2022. Findings: Bones: Alignment is normal. No fractures or bone lesions. Joint spaces: Moderate bilateral hip joint arthritis. Soft tissues: Unremarkable. Dictated by Donald Josue MD @ 02/19/2025 9:59:19 AM (Electronically Signed)
--- NOTE | 2025-02-19 09:58 | PM.IMPN1 ---
Assessment and Plan Assessment and plan (1) Acute subdural hematoma: Problem comment: - Subdural Hematoma with 0.3 cm midline shift. Results of repeat CT head: Stable. - continue to manage BP (currently well controlled with home meds) - Keep HOB elevated - q4h neurochecks. - 02/18 I've called out to neurosurgery at [facility] with results of repeat CT head and am waiting for a callback. - 02/19 doing well. More weakness and pain with left leg, no other neurologic findings, headaches, nausea, vision changes. Mentation has improved and is at baseline. PT and OT to reevaluate today. Continue q.4 hours neuro checks for now and anticipate probable discharge back to Memory Care tomorrow. Status: Acute (2) Left leg weakness: Problem comment: - associated with bruising and pain in left hip, probably acute on chronic given history from daughter - XR pelvis and left hip reassuring - PT and OT Status: Acute (3) Lactate blood increase: Problem comment: - Suspect due to SDH, no evidence of sepsis. Status: Acute (4) Fracture, humerus closed: Problem comment: Closed treatment of a closed, acute, minimally displaced left greater tuberosity fracture. DOI: 02/17/25. - ortho has seen; nonsurgical management, continue sling, PT/OT. Status: Acute (5) Hyperlipidemia: Problem comment: - continue lovastatin Status: Chronic (6) Hypertension: Problem comment: - coninue lisinopril and amlodipine to keep SBP<140. Status: Chronic (7) Cognitive dysfunction: Status: Chronic Plan Patient is a 89-year-old female with past medical history significant for HTN, HLP and dementia who lives at a custodial/long term, had an episode of fall that was unwitnessed. In the emergency department she was found to have elevated lactate 3.6. Mild leukocytosis with white count of 11.4. UA is pending. Left shoulder X ray showed acute fracture through proximal humerus involving greater tuberosity. Pt had bruise on left forehead. CT head completed after admission, pt found to have subdural hematoma with 0.3 centimeter rightward midline shift. VTE prophylaxis with SCDs, low dose enoxaparin Total Time Spent Total Time Spent: Today I spent 50 minutes seeing the patient, discussing with the patient's daughter, reviewing [facility] and [facility] notes/diagnostics/labs, discussing the care plan with our care team that includes social work, PT/OT, pharmacy, RT, alf and documenting my impressions and plan in the medical record. Subjective Time Seen by Provider: 07:49 Date Seen: 02/19/25 Interval history: Lluvia denies HODGES or vision changes. She is having more trouble getting up to the bathroom today because of pain and weakness in her left hip/leg. She also c/o throbbing in her left upper arm this morning. I also received a phone call from Dr. Ocasio ([facility]) who saw the patient via video today. He called to recommend consult to neurosurgery for their recommendations for follow up. I noted that I spoke with Dr. Cottrell from [facility] neurosurgery yesterday and got recommendations. Lluvia's daughter, Addie, came in this morning and I went back in to speak with her. She noted that Lluvia's mentation is much clearer today and she is at her baseline. She also tells me that Lluvia's left left was weak prior to her recent fall. We discussed Lluvia's left leg pain and weakness, the results of the left hip and pelvis Xrays, the recommendations from Neurosurgery and Neurology, and that she would likely discharge back to her memory care facility tomorrow via wheelchair transport. Addie's questions were answered. Exam Narrative: Exam Narrative: General: No acute distress. Awake, alert, oriented to self and general time of day. No pallor. No jaundice. Laceration and ecchymosis on left face noted, hemostatic at this time. Oropharynx: Clear. Mucous membranes moist. Cardiovascular: Regular rate and rhythm. No murmurs, gallops, or rubs. Respiratory: Clear to auscultation bilaterally. No wheezes or crackles. Abdomen: Bowel sounds present. Soft, nondistended, nontender. Extremities: No lower extremity edema. Skin: Ecchymosis over left hip and left low back. Neuro: No facial asymmetry. Tongue is midline. Peripheral vision and vision are grossly intact. Strength is 4/5 in left leg. Strength 5/5 in right upper extremity and right lower extremity. 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 The rest of the left arm strength was not assessed due to left humerus fracture. Light touch sensation is intact in face body and extremities. Const: Vital Signs, click to edit/add: Vital Signs - 24 hr 02/18/25 10:52 02/18/25 11:00 02/18/25 12:00 Temperature 98.6 F 98.6 F 98.9 F Pulse Rate Pulse Rate [Left P ulse Oximeter] 84 72 82 Respiratory Rate 20 20 20 Blood Pressure [Ri ght Arm] 130/64 125/59 L 133/56 L Pulse Oximetry 96 96 95 Oxygen Delivery Me thod 02/18/25 12:00 02/18/25 12:40 02/18/25 13:00 Temperature 98.9 F Pulse Rate 88 Pulse Rate [Left P ulse Oximeter] 84 86 Respiratory Rate 20 Blood Pressure [Ri ght Arm] 130/65 Pulse Oximetry 96 Oxygen Delivery Me thod 02/18/25 13:00 02/18/25 14:00 02/18/25 14:00 Temperature Pulse Rate Pulse Rate [Left P ulse Oximeter] 84 86 81 Respiratory Rate 20 Blood Pressure [Ri ght Arm] 145/58 H Pulse Oximetry 96 Oxygen Delivery Me thod 02/18/25 15:00 02/18/25 15:00 02/18/25 15:00 Temperature 97.8 F Pulse Rate 62 Pulse Rate [Left P ulse Oximeter] 75 75 Respiratory Rate 20 Blood Pressure [Ri ght Arm] 126/60 Pulse Oximetry 94 Oxygen Delivery Me thod 02/18/25 15:00 02/18/25 16:00 02/18/25 17:00 Temperature 98 F Pulse Rate Pulse Rate [Left P ulse Oximeter] 68 71 68 Respiratory Rate 18 18 Blood Pressure [Ri ght Arm] 118/86 Pulse Oximetry 95 Oxygen Delivery Me thod Room Air 02/18/25 19:15 02/18/25 19:15 02/18/25 19:39 Temperature 98.2 F Pulse Rate Pulse Rate [Left P ulse Oximeter] 73 73 73 Respiratory Rate 18 18 Blood Pressure [Ri ght Arm] 125/63 Pulse Oximetry 98 Oxygen Delivery Me thod Room Air 02/18/25 20:41 02/18/25 20:47 02/18/25 20:48 Temperature 98.2 F 98.5 F Pulse Rate Pulse Rate [Left P ulse Oximeter] 75 75 Respiratory Rate 18 Blood Pressure [Ri ght Arm] 151/73 H Pulse Oximetry 96 Oxygen Delivery Me thod Room Air 02/18/25 21:28 02/18/25 22:22 02/18/25 22:32 Temperature 98.1 F Pulse Rate 74 Pulse Rate [Left P ulse Oximeter] 75 74 Respiratory Rate 18 16 Blood Pressure [Ri ght Arm] 110/58 L Pulse Oximetry 94 Oxygen Delivery Me thod Room Air 02/18/25 22:33 02/19/25 00:51 02/19/25 00:52 Temperature 98.1 F Pulse Rate Pulse Rate [Left P ulse Oximeter] 74 69 69 Respiratory Rate 16 Blood Pressure [Ri ght Arm] 114/59 L Pulse Oximetry 93 Oxygen Delivery Me thod Room Air 02/19/25 00:55 02/19/25 02:13 02/19/25 02:14 Temperature 98.0 F Pulse Rate 68 Pulse Rate [Left P ulse Oximeter] 78 78 Respiratory Rate 16 16 Blood Pressure [Ri ght Arm] 123/62 Pulse Oximetry 97 Oxygen Delivery Me thod Room Air 02/19/25 02:14 02/19/25 04:33 02/19/25 07:00 Temperature 98.1 F Pulse Rate 70 Pulse Rate [Left P ulse Oximeter] 78 70 Respiratory Rate 16 Blood Pressure [Ri ght Arm] 131/58 L Pulse Oximetry 96 Oxygen Delivery Me thod Room Air 02/19/25 07:00 02/19/25 07:00 02/19/25 07:00 Temperature 98.5 F Pulse Rate Pulse Rate [Left P ulse Oximeter] 73 73 73 Respiratory Rate 18 18 Blood Pressure [Ri ght Arm] 143/58 H Pulse Oximetry 95 Oxygen Delivery Me thod Room Air 02/19/25 09:00 Temperature 98.0 F Pulse Rate Pulse Rate [Left P ulse Oximeter] 86 Respiratory Rate 16 Blood Pressure [Ri ght Arm] 118/69 Pulse Oximetry 94 Oxygen Delivery Me thod Room Air Labs Labs: Laboratory Results - last 24 hr 02/18/25 10:53 Lactate 3.8 H Ordering Physician: Duyen Gallo M.D. Date of Service: 02/19/25 Procedure(s): XR hip LT min 2V Accession Number(s): [id number] cc: Duyen Gallo M.D.; Chance Alba M.D.~ For Patients: As a result of the 21st Century Cures Act, medical imaging exams and procedure reports are released immediately into your electronic medical record. You may view this report before your referring provider. If you have questions, please contact your health care provider. Indication: Fall with bruising and weakness. Technique: Pelvis and left hip 3 views. Comparison: March 17, 2022. Findings: Bones: Alignment is normal. No fractures or bone lesions. Joint spaces: Moderate bilateral hip joint arthritis. Soft tissues: Unremarkable. Dictated by Donald Josue MD @ 02/19/2025 9:59:19 AM (Electronically Signed)
--- NOTE | 2025-02-19 11:30 | PC.NURSE ---
Call placed to [facility] staff at 1130am to discuss possibility of discharge this weekend, no answer and voicemail left.
--- NOTE | 2025-02-19 16:37 | PC.NURSE ---
End of shift report [id number]: Pleasant and cooperative with cares. Pain reported to left shoulder, well managed with positioning, ice and prn tylenol. Transfer with heavy assist x 2 pivot transfer onto BS, patient difficulty with bearing weight on left leg. Neuros intact, does have increased LLE weakness that has become worse over the last 24 hours, also noted to have bruising to left hip and left buttock that is new. Dr. Gallo updated and new orders for x-rays. Pleasantly confused, unsure of date but is aware of the time of year. Appetite good.
[2025-02-19] MEDS: DONEPEZIL 10 MG TABLET PO (20:12)
[2025-02-20] VITALS (12 sets, daily range): BP systolic 134–147; BP diastolic 52–59; PULSE 65–85; RESP 16–18; TEMP 36.2–37; O2SAT 94–98
[2025-02-20] MEDS: ACETAMINOPHEN 325 MG TABLET 650 MG PO (02:39)
--- NOTE | 2025-02-20 05:39 | PC.NURSE ---
Pt rested well this night. Pain controlled. VS unremarkable. Reporting no headache. Pleasant and cooperative. Seems less confused than previous night.
--- NOTE | 2025-02-20 07:28 | PC.NURSE ---
RN attempted to contact facility for discharge planning. Answering service attempted to transfer RN to [facility]; was transfered to Freda Campos whose VM stated she is retired and phone number for Jessica DOMINGO ([phone]) supplied. [facility] number called no answer. On [facility]'s VM a number was provided for bryan nurse ) that number called no answer. On that VM there was a number for emergencies ([phone]) to get in contact with staff that number called no answer and VM box was full and not able to receive new messages.
[2025-02-20] MEDS: LOVASTATIN 20 MG TABLET PO (08:44)
[2025-02-20] MEDS: AMLODIPINE 5 MG TABLET PO (08:44)
[2025-02-20] MEDS: ENOXAPARIN 40 MG/0.4 ML INJ SUBCUT (08:44)
[2025-02-20] MEDS: SODIUM CHLORIDE 0.9 % (FLUSH) 10 ML SYRINGE 5 ML IVF ×2 (08:45→20:55)
--- NOTE | 2025-02-20 10:55 | PC.NURSE ---
Phone called received from [facility] Staff around 1050 today. They can accept back back to the facility as early as 0800/0900 in the morning tomorrow 02/21/25. When DC time is known please call [facility] so they can set up their transport van for patient to return. They are unable to take her back today due to unavailability of RN to do admission.
--- NOTE | 2025-02-20 11:02 | P.IMPN_ITS ---
Assessment and Plan Assessment and plan (1) Acute subdural hematoma: Problem comment: - Subdural Hematoma with 0.3 cm midline shift. Results of repeat CT head 02/18: Stable. - continue to manage BP (currently well controlled with home meds) - Keep HOB elevated - q4h neurochecks. - 02/18 I've called out to neurosurgery at [facility] with results of repeat CT head and am waiting for a callback. - 02/19 doing well. More weakness and pain with left leg, no other neurologic findings, headaches, nausea, vision changes. Mentation has improved and is at baseline. PT and OT to reevaluate today. Continue q.4 hours neuro checks for now and anticipate probable discharge back to [facility] Care tomorrow. - 02/20 Pain and weakness in LLE back to what it was Friday, improving. D/w patient and dtr, will hold off on repeat head CT as this is contralateral to side of SDH and suspect this is due to pain/injury from fall onto left side, c/w bruising and other injuries on that side and CT head on 02/18 was stable. Patient has no other focal neurological findings, headache or vision changes. Continue to monitor neurochecks q4h. Status: Acute (2) Left leg weakness: Problem comment: - associated with bruising and pain in left hip, probably acute on chronic given history from daughter - XR pelvis and left hip reassuring - Continue PT and OT Status: Acute (3) Lactate blood increase: Problem comment: - Suspect due to SDH, no evidence of sepsis. Status: Acute (4) Fracture, humerus closed: Problem comment: Closed treatment of a closed, acute, minimally displaced left greater tuberosity fracture. DOI: 02/17/25. - ortho has seen; nonsurgical management, continue sling, PT/OT. Ortho f/u as outpatient Status: Acute (5) Hyperlipidemia: Problem comment: - continue lovastatin Status: Chronic (6) Hypertension: Problem comment: - coninue lisinopril and amlodipine to keep SBP<140. Status: Chronic (7) Cognitive dysfunction: Status: Chronic (8) Urinary frequency: Problem comment: - UC from 02/18 mixed G+ ras - Repeat UA/UC Status: Acute Plan Patient is a 89-year-old female with past medical history significant for HTN, HLP and dementia who lives at a skilled nursing/alf, had an episode of fall that was unwitnessed. In the emergency department she was found to have elevated lactate 3.6. Mild leukocytosis with white count of 11.4. UA is pending. Left shoulder X ray showed acute fracture through proximal humerus involving greater tuberosity. Pt had bruise on left forehead. CT head completed after admission, pt found to have subdural hematoma with 0.3 centimeter rightward midline shift. VTE prophylaxis with SCDs, low dose enoxaparin. - Okay to return to [facility], they are unable to take her back today. SW to see and help with d/c planning. Total Time Spent Total Time Spent: Today I spent 35 minutes seeing the patient, discussing with the patient's daughter, reviewing Expanse and EPIC notes/diagnostics/labs, discussing the care plan with our care team that includes social work, PT/OT, pharmacy, RT, jail and documenting my impressions and plan in the medical record. Subjective Time Seen by Provider: 07:46 Date Seen: 02/20/25 Interval history: Lluvia denies pain. Her sister, Addie, came in this morning and noted that Lluvia continues to mentate better and better and is at her baseline. Lluvia is having some urinary frequency today. She is moving a bit better than yesterday, but still some trouble with her left leg. Her sister notes that Lluvia has been really weak in the last month or so and was even using a wheelchair a week ago, then had two falls in the past week. We discussed obtaining a third CT head, but she did not to do it at this time. Exam Narrative: Exam Narrative: General: No acute distress. Awake, alert, oriented x3. No pallor. No jaundice. Laceration and ecchymosis on left face hemostatic, healing. Cardiovascular: Regular rate and rhythm. No murmurs, gallops, or rubs. Respiratory: Clear to auscultation bilaterally. No wheezes or crackles. Abdomen: Bowel sounds present. Soft, nondistended, nontender. Extremities: No lower extremity edema. Neuro: No facial asymmetry. Tongue is midline. Peripheral vision and vision are grossly intact. Strength is 4+/5 in left leg, back to what it was Friday. Strength 5/5 in right upper extremity and right lower extremity. Left arm acid regenerator strength is 5/5. The rest of the left arm strength was not assessed due to left humerus fracture. Light touch sensation is intact in face body and extremities. Const: Vital Signs, click to edit/add: Vital Signs - 24 hr 02/19/25 13:45 02/19/25 13:59 02/19/25 15:00 Temperature 98.0 F 98.5 F Pulse Rate Pulse Rate [Left P ulse Oximeter] 82 82 81 Respiratory Rate 16 16 16 Blood Pressure [Ri ght Arm] 123/60 119/56 L Pulse Oximetry 96 96 Oxygen Delivery Me thod Room Air Room Air 02/19/25 15:00 02/19/25 15:00 02/19/25 19:00 Temperature 98.4 F Pulse Rate 73 Pulse Rate [Left P ulse Oximeter] 73 84 Respiratory Rate 16 Blood Pressure [Ri ght Arm] 137/53 L Pulse Oximetry 95 Oxygen Delivery Me thod Room Air 02/19/25 19:00 02/19/25 20:08 02/19/25 22:52 Temperature 98.1 F Pulse Rate Pulse Rate [Left P ulse Oximeter] 84 84 67 Respiratory Rate 16 16 Blood Pressure [Ri ght Arm] 124/75 Pulse Oximetry 97 Oxygen Delivery Me thod Room Air 02/19/25 22:54 02/20/25 02:39 02/20/25 02:42 Temperature 98.1 F 97.2 F L Pulse Rate Pulse Rate [Left P ulse Oximeter] 67 65 Respiratory Rate 16 Blood Pressure [Ri ght Arm] 142/58 H Pulse Oximetry 97 Oxygen Delivery Me thod Room Air 02/20/25 02:43 02/20/25 05:00 02/20/25 07:16 Temperature Pulse Rate Pulse Rate [Left P ulse Oximeter] 65 65 71 Respiratory Rate 16 Blood Pressure [Ri ght Arm] Pulse Oximetry Oxygen Delivery Me thod 02/20/25 07:16 02/20/25 07:21 Temperature 97.8 F Pulse Rate Pulse Rate [Left P ulse Oximeter] 71 71 Respiratory Rate 16 16 Blood Pressure [Ri ght Arm] 135/59 L Pulse Oximetry 98 Oxygen Delivery Me thod Room Air
[2025-02-20 16:19] LABS: Appearance Urine Clear (Clear)
--- NOTE | 2025-02-20 18:20 | PC.NURSE ---
End of shift. she has been very Pleasant and cooperative. she is alert x2 she was off on day. Neuros intact. Pain left shoulder left arm she got po meds and acitive ice. she is eating, drinking and has a external cath. she moves with assist x 2 pivot transfer onto [facility], patient difficulty with bearing weight on left leg. bruising to left hip and left buttock. she has been in the bed and up to the chair.
[2025-02-20] MEDS: DONEPEZIL 10 MG TABLET PO (20:52)
[2025-02-21] VITALS (7 sets, daily range): BP systolic 119–138; BP diastolic 52–61; PULSE 70–84; RESP 16–18; TEMP 36.4–36.9; O2SAT 93–96
[2025-02-21] MEDS: ACETAMINOPHEN 325 MG TABLET 650 MG PO ×3 (01:51→12:04)
--- NOTE | 2025-02-21 06:47 | PC.NURSE ---
End of shift note [id number]: Pt noted to be alert & oriented to person, place and situation. She has been intermittently confused to correct time of day at times throughout the shift though pt has baseline dementia. HEATHER. Pt requires Jing Galeana with assist of 2 for transferring to [facility]. External catheter utilized to promote skin integrity. VSS- pt has been afebrile and on RA throughout the shift. PRN Bisacodyl supp given as date of last BM unknown as pt has baseline dementia and only had one small formed BM overnight. Neuros performed per order with no changes noted. No N/V. Active ice applied to LUE along with providing PRN Tylenol for pain control due to fx. Sling worn to LUE with CMS to LUE intact. Bed alarm on for safety and call light within reach. ?
--- NOTE | 2025-02-21 07:56 | CRLHL7_ITS ---
For Patients: As a result of the Century Cures Act, medical imaging exams and procedure reports are released immediately into your electronic medical record. You may view this report before your referring provider. If you have questions, please contact your health care provider. INDICATION: Worsening left lower extremity weakness and fatigue with a known subdural hematoma. COMPARISON: 02/18/2025 TECHNIQUE: CT of the brain / head without intravenous contrast. Multiplanar axial, coronal, and sagittal reformats were reconstructed. FINDINGS: Left subdural hematoma is primarily along the lateral frontoparietal convexity with some extension over the vertex. It is uniformly hyperdense and measures 10.5 mm in maximum thickness, unchanged compared to prior. There is some effacement of the local subarachnoid spaces in 2 millimeters of [id number] midline shift at the level of the lateral ventricles. The basal cisterns and posterior fossa CSF spaces are normal. There is generalized age-related parenchymal volume loss. No acute or subacute cortically based infarct. Near confluent periventricular and scattered white matter hypodensities may be related to chronic microvascular ischemia. No mass or mass effect. No hydrocephalus. No skull fractures. No worrisome focal bone lesion. IMPRESSION: Similar left subdural hematoma with 2 millimeters of [id number] midline shift. No acute findings. Please note that all CT scans at this facility use dose modulation, iterative reconstruction, and/or weight-based dosing when appropriate to reduce radiation dose to as low as reasonably achievable. Dictated by Sarai Cheung MD @ 02/21/2025 9:04:48 AM (Electronically Signed)
[2025-02-21] MEDS: ENOXAPARIN 40 MG/0.4 ML INJ SUBCUT (08:10)
[2025-02-21] MEDS: SODIUM CHLORIDE 0.9 % (FLUSH) 10 ML SYRINGE 5 ML IVF (08:14)
[2025-02-21] MEDS: AMLODIPINE 5 MG TABLET PO (10:06)
[2025-02-21] MEDS: LOVASTATIN 20 MG TABLET PO (10:08)
--- NOTE | 2025-02-21 10:09 | PC.NURSE ---
Change of Care Note - RN took over pt care from approximately 729- 08. Pt alert, A/O x4 but asked repetitive questions to RN, and very pleasant. Noted to be drowsy, pt reported feeling tired. Not up from bed during RN care. L leg noted to have significant weakness with pt reporting I just don't have any strength. L arm secure in sling per Ortho. Pt reported pain in L shoulder as 6/10 and reported pain as sore and achy. Given medication per MAR with pt reporting improvement.
--- NOTE | 2025-02-21 10:21 | PC.SOCIAL ---
Addendum entered and electronically signed by Verónica Ha LCSW 02/21/25 12:51: SW met with patient and patient's daughter and reviewed Important Medicare Rights form with patient and provided to patient's daughter. Patient and daughter have no concerns with discharge at this time. SW confirmed with Jessica that patient is discharging today and secure emailed orders. Original Note: Discharge planning: AMBER spoke with Roslyn at [facility] who requested that SW send notes for review to see if they can take her back to memory care or if she will need [facility]. AMBER secure emailed these to Roslyn and inquired about therapy services. AMBER received call from Jessica Lovelace, at [facility] - [phone] asking what transport time SW would like for patient 1130 or 1300. AMBER explained that she doesn't have confirmation on discharge yet, but chose to hold the 1300 time in the case patient is ready for discharge. Jessica states that patient is already set up with PT/OT. AMBER to call with discharge update.
--- NOTE | 2025-02-21 11:02 | PM.DS1 ---
DS: Providers Provider Time Seen by Provider: 07:50 Date Seen: 02/21/25 Date of admission: 02/18/25 10:04 Primary care physician: Chance Alba MD Admitting Clinician: Keren Lubin MD Consults: 02/18/25 04:28 Consult to Physical Therapy [CONS] Routine Comment: Reason(s) for PT Consult:: Evaluate Ambulation Any Restrictions?:: No Restrictions Comment: per orthopedic 02/18/25 14:35 Consult to Occupational Therapy [CONS] Routine Comment: Reason(s) for OT Consult:: Evaluate and Treat Any Restrictions?:: No Restrictions Attending Physician on discharge: Duyen Gallo MD Date of Discharge: 02/21/25 DS: Diagnosis Discharge Diagnosis (1) Acute subdural hematoma: Status: Acute Problem details: - Subdural Hematoma with 0.3 cm midline shift. Results of repeat CT head 02/18: Stable. - continue to manage BP (currently well controlled with home meds) - Keep HOB elevated - q4h neurochecks. - 02/18 I've called out to neurosurgery at [facility] with results of repeat CT head and am waiting for a callback. - 02/19 doing well. More weakness and pain with left leg, no other neurologic findings, headaches, nausea, vision changes. Mentation has improved and is at baseline. PT and OT to reevaluate today. Continue q.4 hours neuro checks for now and anticipate probable discharge back to Memory Care tomorrow. - 02/20 Pain and weakness in LLE back to what it was Friday, improving. D/w patient and dtr, will hold off on repeat head CT as this is contralateral to side of SDH and suspect this is due to pain/injury from fall onto left side, c/w bruising and other injuries on that side and CT head on 02/18 was stable. Patient has no other focal neurological findings, headache or vision changes. Continue to monitor neurochecks q4h. - 02/21 No HODGES, vision changes, or seizure like activity. LLE weakness waxes and wanes. CT head without contrast repeated today and remains stable. Called [facility] neurosurgery modeling and simulation analyst for outpatient recommendations. Dr. Meliton Pavon asked me to push images to [facility] and have her f/u with [facility] neurosurgery as an outpatient with a head CT later this week. (2) Left leg weakness: Status: Acute Problem details: - associated with bruising and pain in left hip, probably acute on chronic given history from daughter - XR pelvis and left hip reassuring, CT head shows stable SDH - Continue PT and OT as outpatient. Okay to return to [facility] memory care today. (3) Lactate blood increase: Status: Acute Problem details: - Suspect due to SDH, no evidence of sepsis. (4) Fracture, humerus closed: Status: Acute Problem details: Closed treatment of a closed, acute, minimally displaced left greater tuberosity fracture. DOI: 02/17/25. - ortho has seen; nonsurgical management, continue sling, PT/OT. Ortho f/u as outpatient (5) Hyperlipidemia: Status: Chronic Problem details: - continue lovastatin (6) Cognitive dysfunction: Status: Chronic (7) Hypertension: Status: Chronic Problem details: - coninue lisinopril and amlodipine to keep SBP<140. (8) Urinary frequency: Status: Acute Problem details: - UC from 02/18 mixed G+ ras - Repeat UA/UC 02/20 same at 02/18. DS: Summary Hospital Course Hospital Course: Per H&P: Caterina Williamson was seen as an interactive telehealth visit. Nursing staff has assisted with interview and physical exam. Caterina Williamson is a 89 y/o F with PMHx significant for dementia, HTN, HLP, Hypokalemia, spondylolisthesis of lumbar spine, who presented to [facility] with c/o fall and left shoulder pain. Patient currently lives at [facility]. She reports she was going to the bathroom when she lost her balance tripped and fell. She has significant pain in her left upper arm/shoulder. She also has a bruise on her left forehead. She otherwise denies any chest pain, abdominal pain, nausea or vomiting. Workup in the emergency department showed mild leukocytosis with white count of 11.4, hemoglobin 13, hematocrit 38.9, platelets 217. Sodium 134, potassium 3.8, chloride 103, bicarb 20, anion gap 11, BUN 19, creatinine 0.6. lactate was 3.6. Shoulder x-ray was done which showed acute fracture through the proximal humerus involving the greater tuberosity. CT head was done after the admission which showed left holohemispheric mixed density subdural hematoma with 0.3 cm of right word midline shift. No soft tissue swelling along the forehead Discussed with neurosurgery Dr. Meliton Pavon regarding subdural hematoma with rightward shift. He reviewed the CT scan on the phone and recommended to start Keppra 750 mg p.o. twice daily for 7 days. He also recommended goals of care discussion with the patient/POA regarding surgical versus nonsurgical management. He recommended repeat CT head in 6 hours and to be updated with the results. Plan - cont with keppra 750 mg po bid x 7 days - neuro checks q 4 hours - Seizure precautions - CT head at 10 am. - Discussed goals of care with pt's daughter. She agrees to wait for repeat CT head results prior to making any decisions. - dc lovenox sub q. - resume home bp medications. Caterina's repeat head CT on 02/18 was stable. She had waxing and waning LLE weakness and bruising was also noted on her left hip/buttock. Imaging was reassuring, no fractures, and repeat head CT 02/21 remained stable. She worked with PT and OT through the weekend and is returning to her memory care today in stable condition. Please see diagnoses above for full details. Time Spent with Patient Time attestation: Total time spent providing and/or coordinating discharge services: Today I spent 60 minutes seeing and discharging the patient, discussing with the patient and her daughter, discussing over the phone with the neurosurgeon, reviewing Expanse and EPIC notes/diagnostics/labs, discussing the care plan with our care team that includes social work, PT/OT, pharmacy, RT, alf and documenting my impressions and plan in the medical record. Exam Narrative: Exam Narrative: General: No acute distress. Awake, alert, oriented x3. No pallor. No jaundice. Laceration and ecchymosis on left face hemostatic, healing. Cardiovascular: Regular rate and rhythm. No murmurs, gallops, or rubs. Respiratory: Clear to auscultation bilaterally. No wheezes or crackles. Abdomen: Bowel sounds present. Soft, nondistended, nontender. Extremities: No lower extremity edema. Neuro: No facial asymmetry. Tongue is midline. Peripheral vision and vision are grossly intact. Strength is 4/5 in left leg. Strength 5/5 in right upper extremity and right lower extremity. 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 The rest of the left arm strength was not assessed due to left humerus fracture. Light touch sensation is intact in face body and extremities. Const: Vital Signs, click to edit/add: Vital Signs - 24 hr 02/20/25 12:18 02/20/25 12:23 02/20/25 15:30 Temperature 98.0 F Pulse Rate [Left P ulse Oximeter] 80 80 85 Respiratory Rate 16 Blood Pressure [Ri ght Arm] 147/59 H Pulse Oximetry 95 Oxygen Delivery Me thod Room Air 02/20/25 15:30 02/20/25 15:45 02/20/25 19:00 Temperature 98.6 F 98.1 F Pulse Rate [Left P ulse Oximeter] 85 85 78 Respiratory Rate 16 16 16 Blood Pressure [Ri ght Arm] 135/52 L 137/58 L Pulse Oximetry 97 95 Oxygen Delivery Me thod Room Air Room Air 02/20/25 19:00 02/20/25 23:00 02/20/25 23:00 Temperature 98.3 F Pulse Rate [Left P ulse Oximeter] 78 79 79 Respiratory Rate 18 Blood Pressure [Ri ght Arm] 134/59 L Pulse Oximetry 94 Oxygen Delivery Me thod Room Air 02/20/25 23:00 02/21/25 03:30 02/21/25 03:40 Temperature 97.6 F Pulse Rate [Left P ulse Oximeter] 79 79 79 Respiratory Rate 18 18 Blood Pressure [Ri ght Arm] 119/54 L Pulse Oximetry 94 Oxygen Delivery Me thod Room Air 02/21/25 08:23 02/21/25 08:25 Temperature 98.1 F Pulse Rate [Left P ulse Oximeter] 84 84 Respiratory Rate 16 Blood Pressure [Ri ght Arm] 138/61 Pulse Oximetry 93 Oxygen Delivery Me thod Room Air DS: Data Data Completed and Pending Completed studies during hospitalization: 02/18/2025 EKG: Normal sinus rhythm, 81 beats per minute, normal EKG. Ordering Physician: Olga Aguilar M.D. Date of Service: 02/18/25 Procedure(s): XR humerus LT Accession Number(s): [id number] cc: Chance Alba M.D.; Olga Aguilar M.D.~ For Patients: As a result of the Cures Act, medical imaging exams and procedure reports are released immediately into your electronic medical record. You may view this report before your referring provider. If you have questions, please contact your health care provider. Indication: Fall, pain Technique: Two views left shoulder, two views of the left humerus Comparison: Left shoulder radiographs performed 03/12/2016 Findings/Impression: Humerus: Acute fracture through the proximal humerus involving the greater tuberosity. Shoulder: No additional fracture appreciated. Glenohumeral alignment is maintained. Dictated by Sergey Wallis MD @ 02/18/2025 1:29:01 AM (Electronically Signed) Ordering Physician: Olga Aguilar M.D. Date of Service: 02/18/25 Procedure(s): XR shoulder LT min 2V Accession Number(s): [id number] cc: Chance Alba M.D.; Olga Aguilar M.D.~ For Patients: As a result of the Cures Act, medical imaging exams and procedure reports are released immediately into your electronic medical record. You may view this report before your referring provider. If you have questions, please contact your health care provider. Indication: Fall, pain Technique: Two views left shoulder, two views of the left humerus Comparison: Left shoulder radiographs performed 03/12/2016 Findings/Impression: Humerus: Acute fracture through the proximal humerus involving the greater tuberosity. Shoulder: No additional fracture appreciated. Glenohumeral alignment is maintained. Dictated by Sergey Wallis MD @ 02/18/2025 1:29:19 AM (Electronically Signed) Ordering Physician: Kreen Lubin MD Date of Service: 02/18/25 Procedure(s): CT head/brain wo con Accession Number(s): [id number] cc: Chance Alba M.D.; Keren Lubin MD~ ADDENDUMINDICATION: Fall TECHNIQUE: CT head without contrast. COMPARISON: CT head 10/17/2024 FINDINGS: MASS EFFECT AND VENTRICLES: There is 0.3 centimeters of leftward midline shift. Mild mass effect on the left ventricular body from subdural hemorrhage. Basal cisterns patent. Left holohemispheric sulcal effacement. The ventricles, cisterns, and other CSF containing spaces are symmetrically prominent secondary to diffuse parenchymal volume loss but are otherwise normal as to shape and position. BRAIN: Diffuse cerebral volume loss. Periventricular and subcortical hypodensities likely secondary to age-related microvascular ischemic changes. No acute infarct or hemorrhage. VASCULAR: No acute abnormalities of the cavernous carotids and vertebral vessels on noncontrast exam. EXTRA-AXIAL: Mixed density left holohemispheric subdural hematoma measuring up to 1.1 centimeters in thickness. EXTRA-CRANIAL: No acute calvarial fractures. Small osteoma along the left frontal scalp. Mild soft tissue swelling along the left forehead. Mild scattered sinus mucosal thickening. Mastoids are clear. Bilateral lens replacements. 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 IMPRESSION: Left holohemispheric mixed density subdural hematoma with 0.3 centimeters of leftward midline shift. No soft tissue swelling along the left forehead. Please note that all CT scans at this facility use dose modulation, iterative reconstruction, and/or weight-based dosing when appropriate to reduce radiation dose to as low as reasonably achievable. Dictated by Briana Garcia MD @ 02/18/2025 5:19:52 AM ----- ADDENDUM ----- Midline shift is RIGHTWARD. Results communicated to [facility] by Radha on 02/18/2025 at 5:23 a.m.. Dictated by Briana Garcia MD @ Feb 18 2025 5:23AM (Electronically Signed) For Patients: As a result of the Cures Act, medical imaging exams and procedure reports are released immediately into your electronic medical record. You may view this report before your referring provider. If you have questions, please contact your health care provider. INDICATION: Fall TECHNIQUE: CT head without contrast. COMPARISON: CT head 10/17/2024 FINDINGS: MASS EFFECT AND VENTRICLES: There is 0.3 centimeters of leftward midline shift. Mild mass effect on the left ventricular body from subdural hemorrhage. Basal cisterns patent. Left holohemispheric sulcal effacement. The ventricles, cisterns, and other CSF containing spaces are symmetrically prominent secondary to diffuse parenchymal volume loss but are otherwise normal as to shape and position. BRAIN: Diffuse cerebral volume loss. Periventricular and subcortical hypodensities likely secondary to age-related microvascular ischemic changes. No acute infarct or hemorrhage. VASCULAR: No acute abnormalities of the cavernous carotids and vertebral vessels on noncontrast exam. EXTRA-AXIAL: Mixed density left holohemispheric subdural hematoma measuring up to 1.1 centimeters in thickness. EXTRA-CRANIAL: No acute calvarial fractures. Small osteoma along the left frontal scalp. Mild soft tissue swelling along the left forehead. Mild scattered sinus mucosal thickening. Mastoids are clear. Bilateral lens replacements. 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 IMPRESSION: Left holohemispheric mixed density subdural hematoma with 0.3 centimeters of leftward midline shift. No soft tissue swelling along the left forehead. Please note that all CT scans at this facility use dose modulation, iterative reconstruction, and/or weight-based dosing when appropriate to reduce radiation dose to as low as reasonably achievable. Dictated by Briana Garcia MD @ 02/18/2025 5:19:52 AM (Electronically Signed) Ordering Physician: Keren Lubin MD Date of Service: 02/18/25 Procedure(s): CT head/brain wo con Accession Number(s): [id number] cc: Chance Alba M.D.; Keren Lubin MD~ For Patients: As a result of the Cures Act, medical imaging exams and procedure reports are released immediately into your electronic medical record. You may view this report before your referring provider. If you have questions, please contact your health care provider. INDICATION: Follow-up subdural hematoma with midline shift. TECHNIQUE: CT head without contrast. COMPARISON: Head CT 02/18/2025 earlier on the same day. FINDINGS: Brain parenchyma and extra-axial spaces: Stable size and extent of left cerebral convexity subdural hematoma with maximal thickness of 1.1 cm (series 4, image 27) and unchanged 0.3 cm [id number] midline shift. As seen previously there is mild mass effect on the left lateral ventricle and effacement of the left frontal, parietal, and temporal sulci. The lester-white differentiation is normal. Moderate parenchymal volume loss. Moderate supratentorial and periventricular white matter chronic microvascular ischemic changes. CSF spaces: No intraventricular hemorrhage. Effacement of the left lateral ventricle as above. Compensatory dilatation of the ventricles and basal cisterns within normal limits for age and degree of parenchymal volume loss. Skull base and calvarium: The visualized paranasal sinuses and mastoid air cells demonstrate no acute or significant findings. The visualized orbits are grossly unremarkable apart from bilateral lens replacements. No skull fractures. IMPRESSION: Stable size and extent of 1.1 cm left cerebral convexity subdural hematoma with stable 0.3 cm [id number] midline shift. Please note that all CT scans at this facility use dose modulation, iterative reconstruction, and/or weight-based dosing when appropriate to reduce radiation dose to as low as reasonably achievable. Dictated by Omer Calloway MD @ 02/18/2025 11:22:40 AM (Electronically Signed) Ordering Physician: Marysol Antony PA-C Date of Service: 02/18/25 Procedure(s): CT shoulder LT wo con Accession Number(s): [id number] cc: Chance Alba M.D.; Marysol Antony PA-C~ For Patients: As a result of the Cures Act, medical imaging exams and procedure reports are released immediately into your electronic medical record. You may view this report before your referring provider. If you have questions, please contact your health care provider. INDICATION: Pain after a fall. COMPARISON: Plain films 18 February 2025. TECHNIQUE: Multidetector imaging centered on the left shoulder with axial, coronal sagittal reformats. FINDINGS: Mildly comminuted minimally impacted and slightly inferiorly displaced fracture of the greater tuberosity. No intra-articular extension to the joint. No extension through the neck. No extension to the lesser tuberosity. No joint effusion. Maintained acromial distance. Mild degenerative arthrosis AC joint. Mineralization synovial capsular hypertrophy superiorly. No significant inferior osteophyte. Mild osteoarthritis narrowing in the glenohumeral joint space with minimal humeral and glenoid osteophytes. Prominent atherosclerosis of visualize non aneurysmal aorta. IMPRESSION: Mildly impacted and comminuted and slightly inferiorly depressed fracture of the greater tuberosity. Please note that all CT scans at this facility use dose modulation, iterative reconstruction, and/or weight-based dosing when appropriate to reduce radiation dose to as low as reasonably achievable. Dictated by Leonel Szymanski MD @ 02/18/2025 11:14:08 AM (Electronically Signed) Ordering Physician: Duyen Gallo M.D. Date of Service: 02/19/25 Procedure(s): XR hip LT min 2V Accession Number(s): [id number] cc: Duyen Gallo M.D.; Chance Alba M.D.~ For Patients: As a result of the Cures Act, medical imaging exams and procedure reports are released immediately into your electronic medical record. You may view this report before your referring provider. If you have questions, please contact your health care provider. Indication: Fall with bruising and weakness. Technique: Pelvis and left hip 3 views. Comparison: March 17, 2022. Findings: Bones: Alignment is normal. No fractures or bone lesions. Joint spaces: Moderate bilateral hip joint arthritis. Soft tissues: Unremarkable. Dictated by Donald Josue MD @ 02/19/2025 9:59:19 AM (Electronically Signed) Ordering Physician: Duyen Gallo M.D. Date of Service: 02/21/25 Procedure(s): CT head/brain wo con Accession Number(s): [id number] cc: Duyen Gallo M.D.; Chance Alba M.D.~ For Patients: As a result of the Cures Act, medical imaging exams and procedure reports are released immediately into your electronic medical record. You may view this report before your referring provider. If you have questions, please contact your health care provider. INDICATION: Worsening left lower extremity weakness and fatigue with a known subdural hematoma. COMPARISON: 02/18/2025 TECHNIQUE: CT of the brain / head without intravenous contrast. Multiplanar axial, coronal, and sagittal reformats were reconstructed. FINDINGS: Left subdural hematoma is primarily along the lateral frontoparietal convexity with some extension over the vertex. It is uniformly hyperdense and measures 10.5 mm in maximum thickness, unchanged compared to prior. There is some effacement of the local subarachnoid spaces in 2 millimeters of jwwc-zh-kjdtn midline shift at the level of the lateral ventricles. The basal cisterns and posterior fossa CSF spaces are normal. There is generalized age-related parenchymal volume loss. No acute or subacute cortically based infarct. Near confluent periventricular and scattered white matter hypodensities may be related to chronic microvascular ischemia. No mass or mass effect. No hydrocephalus. No skull fractures. No worrisome focal bone lesion. IMPRESSION: Similar left subdural hematoma with 2 millimeters of wgny-jb-bazzn midline shift. No acute findings. Please note that all CT scans at this facility use dose modulation, iterative reconstruction, and/or weight-based dosing when appropriate to reduce radiation dose to as low as reasonably achievable. Dictated by Sarai Cheung MD @ 02/21/2025 9:04:48 AM (Electronically Signed) Ordering Physician: Duyen Gallo M.D. Date of Service: 02/21/25 Procedure(s): XR wrist LT min 3V Accession Number(s): [id number] cc: Duyen Gallo M.D.; Chance Alba M.D.~ For Patients: As a result of the Cures Act, medical imaging exams and procedure reports are released immediately into your electronic medical record. You may view this report before your referring provider. If you have questions, please contact your health care provider. Indication: Injury and pain Technique: Left wrist 3 view Comparison: None Findings: Chondrocalcinosis of the TFCC. Degenerative changes at the radial aspect of the wrist. Osteopenia. No fracture. Impression: No sign of acute injury in the left wrist. Dictated by Marco A Molina MD @ 02/21/2025 12:10:04 PM (Electronically Signed) Labs on day of discharge: Labs from last 24 hours 02/20/25 15:47 Urine Color Yellow Urine Appearance Clear Urine pH 5.5 Ur Specific [place] 1.025 Urine Protein Negative Urine Glucose (UA) Negative Urine Ketones 1+ A Urine Blood Trace-intact A Urine Nitrite Negative Urine Bilirubin Negative Urine Urobilinogen 0.2 Ur Leukocyte Esterase Negative Urine RBC 0-2 Urine WBC 0-2 Ur Squamous Epith Cells Few Urine Bacteria None Discharge Plan Discharge Disposition: [facility] Date of Admission: 02/18/25 10:04 Attending Provider on Discharge: Duyen Gallo Primary Care Provider: Chance Alba Condition: Stable Discharge Medications: New acetaminophen 325 mg Tablet 650 mg PO Q4H PRN (Reason: headache, fever, pain) Qty: 120 0RF levetiracetam 500 mg Tablet 750 mg PO BID 5 Days Qty: 15 0RF Continued amlodipine 5 mg tablet 5 mg PO DAILY Patient Comments: TAKE 1 TABLET (5 MG) BY MOUTH ONCE DAILY. donepezil 10 mg tablet 10 mg PO HS Patient Comments: TAKE 1 TABLET (10 MG) BY MOUTH AT BEDTIME. lovastatin 20 mg tablet 20 mg PO DAILY Patient Comments: TAKE 1 TABLET (20 MG) BY MOUTH ONCE DAILY WITH EVENING MEAL. lisinopril 10 mg tablet 10 mg PO DAILY cholecalciferol (vitamin D3) 50 mcg (2,000 unit) tablet 50 mcg PO DAILY Discontinued acetaminophen 500 mg tablet 500 mg PO Q6H PRN Discharge Orders: Discharge Order (Routine); Ordered 02/21/25 Ordered By: Duyen Gallo Additional Instructions: [facility] neurosugery clinic, , f/u this week with a CT head without contrast for f/u SDH. Resume home PT and OT. Follow-up with Marysol Antony in 2 weeks for clinical re-evaluation and initiation of Physical Therapy for humerus fracture. Continue to wear her sling daily, removing this sling several times per day to work on elbow motion. Gradually wean out of sling in 2 weeks. Do not externally rotate nor abduct left shoulder. For pain management, use ice and acetaminophen PRN. [place] narcotics for severe pain and minimize use of narcotics. Activity Level: Up with assist and Weight Bearing as Tolerated Discharge Diet: Regular Follow Up Appointments: Milton Vazquez MD [Staff Physician, Family Practice] Chance Alba MD [Primary Care Provider, [facility]] Referral Note: 1 week Forms: Online Ag[employer] Info Instructions Admit to: Assisted Living Discharge Potential: Poor Length of Stay: >90 days Can use facility standing orders?: Yes Code Status: DNR Rehab Potential: Fair Therapy Orders Additional Information: Resume home PT and OT Oxygen: No Urinary Catheter: No Orders are good >30 days: No Signature: Duyen Gallo MD
--- NOTE | 2025-02-21 11:32 | CRLHL7_ITS ---
For Patients: As a result of the Cures Act, medical imaging exams and procedure reports are released immediately into your electronic medical record. You may view this report before your referring provider. If you have questions, please contact your health care provider. Indication: Injury and pain Technique: Left wrist 3 view Comparison: None Findings: Chondrocalcinosis of the TFCC. Degenerative changes at the radial aspect of the wrist. Osteopenia. No fracture. Impression: No sign of acute injury in the left wrist. Dictated by Marco A Molina MD @ 02/21/2025 12:10:04 PM (Electronically Signed)
--- NOTE | 2025-02-21 14:02 | PC.NURSE ---
Discharge Note CCU3 Patient was cooperative throughout shift. VSS. Alert & Oriented x 3. Accompanied by daughter. Afebrile. Left shoulder sling in place.
== END 2025-02-21 13:15 | DRG 86 ==
LOC: ED 02-18 00:23 → MEDSURG 02-18 02:46
PROVIDERS: Family Medicine; Admitting Provider Internal Medicine; Emergency Provider Family Medicine; PCP Family Medicine; Visit Provider Internal Medicine
DX: S06.5X0A Traumatic subdural hemorrhage without loss of consciousness, initial encounter (principal); E87.21 Acute metabolic acidosis; S42.252A Displaced fracture of greater tuberosity of left humerus, initial encounter for closed fracture; E86.0 Dehydration; E87.6 Hypokalemia; R35.0 Frequency of micturition; W01.10XA Fall on same level from slipping, tripping and stumbling with subsequent striking against unspecified object, initial encounter; Y92.002 Bathroom of unspecified non-institutional (private) residence as the place of occurrence of the external cause; M62.81 Muscle weakness (generalized); I10 Essential (primary) hypertension; F03.90 Unspecified dementia, unspecified severity, without behavioral disturbance, psychotic disturbance, mood disturbance, and anxiety; M48.061 Spinal stenosis, lumbar region without neurogenic claudication; M43.16 Spondylolisthesis, lumbar region; K21.00 Gastro-esophageal reflux disease with esophagitis, without bleeding; E78.5 Hyperlipidemia, unspecified; S70.02XA Contusion of left hip, initial encounter; S00.83XA Contusion of other part of head, initial encounter
CPT/HCPCS: 36415; 70450; 73030; 73060; 73110; 73200; 73502; 80048; 80053; 81001; 81003; 83605; 84484; 85025; 87086; 93005; 97110; 97162; 97165; 97530; 97535; 99284; 99285; A9270; G0378; J1171; J1650; J7030

== ENCOUNTER 2025-02-27 21:31 | Outpatient (CLI) | payer OTHER, SELFPAY | END 2025-02-27 21:33 | disposition home or self-care (01) | PROVIDERS: PCP Family Medicine; Visit Provider Family Medicine | DX: R41.82 Altered mental status, unspecified (principal) | CPT/HCPCS: A0425; A0427 ==

== ENCOUNTER 2025-02-27 21:58 | Emergency (ER) | payer OTHER, SELFPAY ==
--- OUTSIDE RECORDS SUMMARY | 2025-02-27 22:00 | XMS_ITS | Clinical Summary ---
Author Organization [facility] Address [address] [place] [id number] Care Team Providers Care Employment Coordinator Name Role Phone Radha Castro MD Unavailable + Carolina Clayton RN Unavailable [phone] Kadie Carey RN Unavailable Kiera Sheikh DO Primary Care Provider Nancy Nagy RN Unavailable [phone] Allergies Active Allergy Reactions Criticality Noted Date [...] R32 She receives these pads monthly from [facility]. Milton Vazquez MD signed electronically [...] 01/14/2007 Pure hypercholesterolemia 01/14/2007 Encounters Date Type Department Care Team Description 02/18/2025 Office Visit [facility] [address] [place] [address] Sit, Jorgito Fuller MD from Last 3 Months Immunizations Immunization Administration Dates Next Due AMB [...] coma and liver failure Heart Disease Father [place]; of [place] at 73 Cancer Maternal Grandmother not a [...] on file Legal Sex Female 7:12 AM [employer] Gender Identity Not on file Sexual Orientation Not on file Obstetrics History Last Filed Vital Signs Vital Sign Reading Time Taken Comments Blood Pressure 113/59 03/29/2022 1:55 PM [employer] Pulse 68 03/29/2022 1:55 PM [employer] Temperature 36.4 C (97.6 F) 05/28/2019 9:48 AM [employer] Respiratory Rate 14 03/29/2022 1:55 PM [employer] Oxygen Saturation 97% 03/29/2022 1:55 PM [employer] Inhaled Oxygen Concentration - - Weight 52.6 kg (115 lb 14.4 oz) 03/29/2022 1:55 PM [employer] Height 151.1 cm (4' 11.5) 01/30/2022 1 [...] exists Tetanus booster 10/29/2023 10/28/2013, 07/2010, 11/29/2010 Influenza Vaccine (#1) 2024 , 02/01/2021, 02/19/2019, [...] Documents on File Type Date Recorded 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 Expl anation Healthcare Directive 09/25/1983 LIVING WILL, [facility], 09/25/83 Care Teams Employment Coordinator Relationship Specialty Start Date End Date Kiera Sheikh DO [address] [place] [id number] PCP - General Internal Medicine 01/26/21 Radha Castro MD [address] [place] [id number] Dermatology 12/28/11 Carolina Clayton RN [address] [place] [address], [address] [place], [place] [phone] Cnp - [facility] Registered Nurse 09/27/19 Kadie Carey RN [address] [place] [phone] Cnp - [facility] Registered Nurse 09/27/19 Nancy Nagy RN [address] [place] [phone] Cnp - [facility] Registered Nurse 02/15/21
[2025-02-27 22:02] VITALS: O2SAT 96
--- NOTE | 2025-02-27 22:02 | CRLHL7_ITS ---
For Patients: As a result of the Century Cures Act, medical imaging exams and procedure reports are released immediately into your electronic medical record. You may view this report before your referring provider. If you have questions, please contact your health care provider. INDICATION: Transient slurred speech. TECHNIQUE: CT head without contrast. COMPARISON: 02/21/2025. FINDINGS: Stable size of left cerebral convexity subdural hematoma measuring 10.6 mm in maximum thickness. Similar mass effect with sulcal effacement and minimal [id number] midline shift measuring 2 mm. No new acute intracranial hemorrhage. Mild diffuse parenchymal volume loss. Patchy white matter low attenuation changes, nonspecific but likely reflecting chronic small vessel ischemic disease. No hydrocephalus. Basilar cisterns are patent. The visualized paranasal sinuses and mastoid air cells demonstrate no acute or significant findings. Bilateral cataract extraction. No skull fractures. IMPRESSION: Stable size of left subdural hematoma with minimal rightward midline shift. No new acute intracranial hemorrhage. Please note that all CT scans at this facility use dose modulation, iterative reconstruction, and/or weight-based dosing when appropriate to reduce radiation dose to as low as reasonably achievable. Dictated by Marquis Mejia MD @ 02/27/2025 10:30:12 PM (Electronically Signed)
--- NOTE | 2025-02-27 22:06 | ED_ITS ---
HPI - General Adult General Chief complaint: Neuro Symptoms/Altered Deficit Stated complaint: stroke like symptoms Time Seen by Provider: 02/27/25 22:02 History of Present Illness HPI narrative: Red Stroke called by EMS in the field @ 2155. Pt was given meds by staff, staff returned and noticed pt has slurred speech. EMS was called to evaluate and transport pt. Pt blood sugar 127. Pt taken direct to CT. PT left arm in sling from previous injury 89-year-old woman brought to the emergency department stroke code activated for slurred speech. I meet EMS in the back wall as we go to head CT. Arrives at around 10:00 p.m.. with last known well at about 845 p.m. head returned apparently to check after giving medications at that time noting slurring of speech. EMS did note some slurring of speech and appreciate that is already improving. Sounds like essentially back to baseline. They really has no other complaints though she has had a recent left shoulder area fracture. Is normally nonambulatory, not using her legs, relying on a Renu lift at place of residence. History of left leg weakness in particular. DNR/DNI is articulated to EMS. Reviewing records now was admitted to this facility on 02/18 with a proximal humerus fracture following a mechanical fall. And continued workup after admission noted to have a subdural hematoma. Was continued on Keppra for seizure prophylaxis, stable head CT images during hospitalization and planned for outpatient head CT. Non operative management for this humerus fracture. History also of chronic left leg weakness. Related Data Home Medications ?Medication ?Instructions ?Recorded ?Confirmed amlodipine 5 mg tablet 5 mg PO DAILY 03/17/2202/18 donepezil 10 mg tablet 10 mg PO HS 03/17/22 5 lovastatin 20 mg tablet 20 mg PO DAILY 03/17/2202/27 cholecalciferol (vitamin D3) 50 50 mcg PO DAILY 02/18/25 mcg (2,000 unit) tablet lisinopril 10 mg tablet 10 mg PO DAILY 02/18/2501/27 Previous Rx's ?Medication ?Instructions ?Recorded acetaminophen 325 mg tablet 650 mg (2 x 325 mg) PO Q4H PRN 02/21/25 headache, fever, pain #120 tabs levetiracetam 500 mg tablet 750 mg (1.5 x 500 mg) PO B ID 5 02/21/25 days #15 tabs Allergies Allergy/AdvReac Type Severity Reaction Status Date / Time codeine Allergy Mild Sweaty Verified 02/17/25 23:10 hydrocodone Allergy Mild Sweaty Verified 02/17/25 23:10 Review of Systems Status of ROS: Reports: 6 or more systems reviewed and unremarkable except as noted in History and below [facility] Medical History (Updated 02/28/25 @ 00:04 by Marco A Dietz MD) 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, left foot (ICD-10) Cerebral aneurysm ?I67.1 - Cerebral aneurysm, nonruptured (ICD-10) Spondylolisthesis of lumbar region ?M43.16 - Spondylolisthesis, lumbar region (ICD-10) Spinal stenosis of lumbar region ?M48.061 - Spinal stenosis, lumbar region without neurogenic claudication (ICD-10) Reflux esophagitis ?K21.00 - Gastro-esophageal reflux disease with esophagitis, without bleeding (ICD-10) Hypokalemia ?E87.6 - Hypokalemia (ICD-10) Cognitive dysfunction ?F09 - Unspecified mental disorder due to known physiological condition (ICD- 10) Hyperlipidemia ?E78.5 - Hyperlipidemia, unspecified (ICD-10) Hypertension ?I10 - Essential (primary) hypertension (ICD-10) Surgical History History of bilateral cataract extraction ?Z98.41 - Cataract extraction status, right eye (ICD-10) ?Z98.42 - Cataract extraction status, left eye (ICD-10) History of back surgery ?Z98.890 - Other specified postprocedural states (ICD-10) History of bunionectomy ?Z98.890 - Other specified postprocedural states (ICD-10) History of total abdominal hysterectomy and bilateral salpingo-oophorectomy ?Z90.710 - Acquired absence of both cervix and uterus (ICD-10) ?Z90.722 - Acquired absence of ovaries, bilateral (ICD-10) ?Z90.79 - Acquired absence of other genital organ(s) (ICD-10) History of hysterectomy ?Z90.710 - Acquired absence of both cervix and uterus (ICD-10) Social History What is your current living situation?: I presently have a place to live Problems where you live: no known problems In the past 12 months, utilities in danger of being shut off: no In past 12 months, lack of transportation kept you from medical appts, meetings, work, or getting things needed for daily living: no In the past 12 mos, have been you worried that your food would run out before you had money to buy more?: never true In the past 12 mos, the food you bought just didn't last and you didn't have money to buy more?: never true Highest level of school completed/degree received: high school graduate Smoking Status: Never smoker Do you use any of these nicotine containing products: None Second hand tobacco smoke exposure: No How often do you have a drink containing alcohol: never How often do you have six or more drinks on one occasion: Never AUDIT-C Alcohol total score: 0 Non-prescribed substance use: denies use Caffeine: Yes How often does anyone, including family, friends and others, physically hurt you : never How often does anyone, including family, friends and others, insult or talk down to you: never How often does anyone, including family, friends and others, threaten you with harm: never How often does anyone, including family, friends and others, scream or curse at you: never service: No Exam Narrative: Exam Narrative: I see Caterina initially in the back jay as noted. She is quite alert. Articulating clearly. Asks if I want to know what her last name is as well which she tells. On reassessment is still fully alert. Yellow bruising over the left side of her face. Nearly cm long scab in the area as well near the left eye. Cranial nerves 2-12 intact. Pupils are 2 mm equal. Extraocular movements are intact and full. Limitations to movement and strength of left upper extremity I think secondary to fracture. Lungs are clear. Heart is in regular rate and rhythm with some ectopic beats I think. Abdomen is soft nontender. Good strength in the right leg raising from bed without difficulty. Left leg is more difficult. Demonstrable weakness apparently have baseline here though. Did not formally do NIH Stroke Scale but would estimate 1 more likely 0 given chronicity of symptoms. Const: Vital Signs, click to edit/add: Vital Signs - 24 hr 02/27/25 22:02 02/27/25 22:14 02/27/25 22:15 Temperature Pulse Rate Pulse Rate [Right Pulse Oximeter] 70 Respiratory Rate 20 Blood Pressure Blood Pressure [Ri ght Upper Arm] 144/55 H Pulse Oximetry 96 95 Oxygen Delivery Me thod Room Air 02/27/25 22:46 02/27/25 23:01 02/27/25 23:17 Temperature Pulse Rate 72 70 69 Pulse Rate [Right Pulse Oximeter] Respiratory Rate 17 17 20 Blood Pressure 138/57 L 130/57 L 130/56 L Blood Pressure [Ri ght Upper Arm] Pulse Oximetry 93 93 93 Oxygen Delivery Me thod 02/28/25 00:05 Temperature 97.4 F L Pulse Rate Pulse Rate [Right Pulse Oximeter] Respiratory Rate Blood Pressure Blood Pressure [Ri ght Upper Arm] Pulse Oximetry Oxygen Delivery Me thod Documenting provider has reviewed patient's vital signs: yes Course Vital Signs Vital signs: Initial Vital Signs Pulse Oximetry 96 02/27/25 22:02 Vital Signs Pulse Oximetry 96 02/27/25 22:02 Temperature 97.4 F L 02/28/25 00:05 Pulse Rate 69 02/27/25 23:17 Respiratory Rate 20 02/27/25 23:17 Blood Pressure 130/56 L 02/27/25 23:17 Pulse Oximetry 93 02/27/25 23:17 Oxygen Delivery Method Room Air 02/27/25 22:14 Medical Decision Making [facility] Narrative Medical decision making narrative: Hard to know what to make of this transient slurring of speech. She is also though in the setting of recent head bleed. Does not seem to have any persistent symptoms and would not be a candidate for lytics. Unclear if had fallen asleep between checks. Sounds like she had received her medications and then was subsequently re-evaluated within that following hour. Head CT independently reviewed by me looks similar to prior with subdural hematoma and midline shift. Would check chemistries. Monitor oximetry and cardiac nurse practitioner. Radiology over-read below INDICATION: Transient slurred speech. TECHNIQUE: CT head without contrast. COMPARISON: 02/21/2025. FINDINGS: Stable size of left cerebral convexity subdural hematoma measuring 10.6 mm in maximum thickness. Similar mass effect with sulcal effacement and minimal [id number] midline shift measuring 2 mm. No new acute intracranial hemorrhage. Mild diffuse parenchymal volume loss. Patchy white matter low attenuation changes, nonspecific but likely reflecting chronic small vessel ischemic disease. No hydrocephalus. Basilar cisterns are patent. The visualized paranasal sinuses and mastoid air cells demonstrate no acute or significant findings. Bilateral cataract extraction. No skull fractures. IMPRESSION: Stable size of left subdural hematoma with minimal rightward midline shift. No new acute intracranial hemorrhage. Please note that all CT scans at this facility use dose modulation, iterative reconstruction, and/or weight-based dosing when appropriate to reduce radiation dose to as low as reasonably achievable. Dictated by Marquis Mejia MD @ 02/27/2025 10:30:12 PM I did discuss this case with Stroke Neuro. Suspect also these observed symptoms might be more related to recent head bleed. With careful consideration would not recommend further intervention or evaluation at this time. Did discuss this case with Caterina and her family. In agreement with period of monitoring. Continues to be otherwise well during time monitoring in the ER. She is looking forward to going home and going to sleep. See patient discharge plan for further discussion You seem well at this point, just tired. I hope you accomplish a good night sleep. Do return for persistently slurred speech, severe headache, worsening weakness whether global or focal. Medical Records Medical records reviewed: Yes I reviewed the patient's medical records Lab Data Lab results reviewed: Yes I reviewed the patient's lab results Labs: Lab Results 02/27/25 Range/Units 22:02 WBC 6.87 (4.50-11.00) K/uL RBC 3.94 L (4.00-5.20) m/uL Hgb 12.7 (12.0-16.0) gm/dL Hct 38.6 (33.0-51.0) % MCV 98 (80-100) fL MCH 32 (26-34) pg MCHC 33 (32-36) gm/dL RDW Coeff of John 12.6 (11.5-15.5) % Plt Count 304 (140-440) K/uL Neut % (Auto) 59.0 (42.0-72.0) % Lymph % (Auto) 26.5 (20-44) % [place] % (Auto) 10.8 (0.0-11.0) % Eos % (Auto) 2.2 (0.0-7.0) % Baso % (Auto) 0.6 (0.0-3.0) % Neut # (Auto) 4.06 (1.7-7.0) K/uL Lymph # (Auto) 1.82 (0.90-2.90) K/uL [place] # (Auto) 0.70 (0.00-0.90) K/UL Eos # (Auto) 0.15 (0.00-0.50) K/uL Baso # (Auto) 0.04 (0.00-0.30) K/uL Abs Immat Gran (auto) 0.06 (0.00-0.30) K/uL Imm/Tot Granulo (auto) 0.9 % INR 0.96 (0.91-1.10) APTT 25 (23-33) Seconds Sodium 135 (135-149) mmol/L Potassium 4.2 (3.6-5.1) mmol/L Chloride 102 (96-114) mmol/L Carbon Dioxide 24 (20-32) mmol/L Anion Gap 9 (7-15) mEq/L BUN 23 (7-30) mg/dL Creatinine 0.7 (0.5-1.5) mg/dL Estimated GFR 83 ml/min Glucose 112 (60-115) mg/dL Calcium 9.5 (8.4-10.6) mg/dL NT-Pro-B Natriuret Pep 32 (See Note) pg/mL ECG Data Attestation: I personally reviewed and interpreted this ECG as follows: (Normal sinus rhythm. Some baseline interference. Rate of 67) Critical Care Time Critical Care Time Critical Care Time: Yes Attestation: The patient required my highest level preparedness to intervene emergently and I personally spent this critical care time directly and personally managing the patient. This critical care time included: Obtaining a history; Examining the patient; Pulse oximetry; Ordering and reviewing of studies; Arranging urgent treatment with development of a management plan; Evaluation of patients response to treatment; Frequent reassessment discussions with other providers. This critical care time was performed to assess and manage the high probability of imminent life-threatening deterioration that could result in multiorgan failure. It was exclusive of separate billable procedures and treating other patients and teaching time. Total Critical Care Time in Minutes: 55 Discharge Plan Discharge Clinical Impression: Slurred speech, Subdural hematoma Patient Disposition: Home w/ Parent or Adult Condition: Stable Additional Instructions: You seem well at this point, just tired. I hope you accomplish a good night sleep. Do return for persistently slurred speech, severe headache, worsening weakness whether global or focal. Prescriptions: No Action amlodipine 5 mg tablet 5 mg PO DAILY Patient Comments: TAKE 1 TABLET (5 MG) BY MOUTH ONCE DAILY. donepezil 10 mg tablet 10 mg PO HS Patient Comments: TAKE 1 TABLET (10 MG) BY MOUTH AT BEDTIME. lovastatin 20 mg tablet 20 mg PO DAILY Patient Comments: TAKE 1 TABLET (20 MG) BY MOUTH ONCE DAILY WITH EVENING MEAL. lisinopril 10 mg tablet 10 mg PO DAILY cholecalciferol (vitamin D3) 50 mcg (2,000 unit) tablet 50 mcg PO DAILY acetaminophen 325 mg Tablet 650 mg PO Q4H PRN (Reason: headache, fever, pain) Qty: 120 0RF levetiracetam 500 mg Tablet 750 mg PO BID 5 Days Qty: 15 0RF Follow Up/Referrals: Chance Alba MD [Primary Care Provider, Family Practice] Stand Alone Forms: [employer] Info Instructions
[2025-02-27 22:14] VITALS: PULSE 70; RESP 20; O2SAT 95
[2025-02-27 22:15] VITALS: BP 144/55
[2025-02-27 22:46] VITALS: BP 138/57; PULSE 72; RESP 17; O2SAT 93
[2025-02-27 22:47] LABS: Chloride* 102 mmol/L (96-114); Potassium* 4.2 mmol/L (3.6-5.1); Sodium* 135 mmol/L (135-149)
[2025-02-27 22:50] LABS: Anion Gap 9 mEq/L (7-15); Blood Urea Nitrogen* 23 mg/dL (7-30); Calcium* 9.5 mg/dL (8.4-10.6); Carbon Dioxide* 24 mmol/L (20-32); Creatinine* 0.7 mg/dL (0.5-1.5); Estimated Glomerular Filt Rate 83 ml/min; Glucose* 112 mg/dL (60-115); Hematocrit* 38.6 % (33.0-51.0); Hemoglobin* 12.7 gm/dL (12.0-16.0); Immature Granulocytes Abs Auto 0.06 K/uL (0.00-0.30); Immature Granulocytes Pct Auto 0.9 %; Lymphocytes Absolute Auto 1.82 K/uL (0.90-2.90); Mean Corpuscular HGB Conc 33 gm/dL (32-36); Mean Corpuscular Hemoglobin 32 pg (26-34); Mean Corpuscular Volume 98 fL (80-100); RDW Coefficient of Variation % 12.6 % (11.5-15.5); Red Blood Count* 3.94 m/uL (4.00-5.20); Slide Review Reflex No; White Blood Count* 6.87 K/uL (4.50-11.00)
[2025-02-27 23:00] LABS: NT Pro B Type NatriureticPept* 32 pg/mL (See Note)
[2025-02-27 23:01] VITALS: BP 130/57; PULSE 70; RESP 17; O2SAT 93
[2025-02-27 23:17] VITALS: BP 130/56; PULSE 69; RESP 20; O2SAT 93
[2025-02-27 23:19] LABS: INR 0.96 (0.91-1.10); Prothrombin Time 13.5 Seconds
[2025-02-28 00:05] VITALS: TEMP 36.3
== END 2025-02-28 00:42 | disposition home or self-care (01) ==
PROVIDERS: Emergency Provider Family Medicine; PCP Family Medicine
DX: R47.81 Slurred speech (principal); S06.5X0A Traumatic subdural hemorrhage without loss of consciousness, initial encounter
CPT/HCPCS: 36415; 70450; 80048; 81001; 82962; 83880; 85025; 85610; 85730; 93005; 94761; 99284; 99291

== ENCOUNTER 2025-02-28 00:43 | Outpatient (CLI) | payer OTHER, SELFPAY | END 2025-02-28 00:44 | disposition home or self-care (01) | LOC: AMB 03-04 12:18 | PROVIDERS: PCP Family Medicine; Visit Provider Family Medicine | DX: S06.5XAA Traumatic subdural hemorrhage with loss of consciousness status unknown, initial encounter (principal); R47.81 Slurred speech | CPT/HCPCS: A0425; A0428 ==